=== PATIENT | male | born 1965 | race Caucasian/White ===

== ENCOUNTER → 2017-03-30 | Outpatient (CLI) | payer BC ==
[~2017-03-30] MED LIST: GLC500 PO; HMLI SC; LISI5TAB3 PO; SIMV10TA2 PO
--- NOTE | 2017-03-30 20:04 | DIAGNOSTIC IMAGING REPORT ---
ULTRASOUND RIGHT LOWER EXTREMITY VENOUS CLINICAL HISTORY: Right leg swelling. COMPARISON STUDY: No priors. TECHNIQUE: Real-time, grayscale, and color Doppler sonography of the deep veins of the right lower extremity was performed from the inguinal crease to the calf. Compression and augmentation were utilized. FINDINGS: There is no sonographic evidence of deep venous thrombosis identified in the right lower extremity. The common femoral, superficial femoral, and popliteal veins are patent and normally compressible. The greater saphenous vein and the profunda femoris vein at the junction with the common femoral vein are clear. The visualized calf veins are patent. Superficial venous thrombus is identified in the posterior calf. IMPRESSION: 1. There is no sonographic evidence of deep venous thrombosis identified in the right lower extremity. 2. A thrombosed superficial vein is identified in the posterior calf. Electronically signed by: Hunter Nix M.D. 03/30/2017 8:03 PM Dictated Date/Time: 03/30/2017 8:02 PM
== END | disposition home or self-care (01) ==
LOC: C.ULTR 19:08
PROVIDERS: ATTEND Family Medicine
DX: M79.89 Other specified soft tissue disorders (principal); I82.811 Embolism and thrombosis of superficial veins of right lower extremity

== ENCOUNTER → 2017-12-12 | Outpatient (CLI) | payer OTHER ==
[~2017-12-12] MED LIST changes: +ACET-1256 PO; +AMIT10TA6 PO; +ASPI81TA28 PO; +ATOR-24 PO; +DULA1INJ SQ; +DXY100 PO; +FRRS300 PO; +IBUP-103 PO; +INSDGIPEN SQ; +LEVO50TA6 PO; +LISI10TA PO; +MECL1TAB40 PO; +METF-384 PO; +SILV1CRE73 TOP; +SULF800T23 PO; +VALA1TAB31 PO
--- NOTE | 2017-12-12 18:31 | DIAGNOSTIC IMAGING REPORT ---
ULTRASOUND RIGHT LOWER EXTREMITY VENOUS CLINICAL HISTORY: Right leg swelling. COMPARISON STUDY: Right lower extremity venous ultrasound dated 03/30/2017. TECHNIQUE: Real-time, grayscale, and color Doppler sonography of the deep veins of the right lower extremity was performed from the inguinal crease to the calf. Compression and augmentation were utilized. FINDINGS: There is no sonographic evidence of deep venous thrombosis identified in the right lower extremity. The common femoral, superficial femoral, and popliteal veins are patent and normally compressible. The greater saphenous vein and the profunda femoris vein at the junction with the common femoral vein are clear. The visualized calf veins are patent. Chronic appearing superficial venous thrombus is identified within the lesser saphenous vein in the popliteal fossa. IMPRESSION: 1. There is no sonographic evidence of deep venous thrombosis identified in the right lower extremity. 2. Chronic appearing superficial venous thrombus is identified within the lesser saphenous vein in the popliteal fossa. Electronically signed by: Hunter Nix M.D. 12/12/2017 6:30 PM Dictated Date/Time: 12/12/2017 6:29 PM
== END | disposition home or self-care (01) ==
LOC: C.ULTR 17:32
PROVIDERS: ATTEND Physician Assistant
DX: I82.811 Embolism and thrombosis of superficial veins of right lower extremity (principal)

== ENCOUNTER 2017-12-15 15:31 | Inpatient (IN) | payer OTHER ==
[~2017-12-15] VITALS: Ht 172.7 cm; Wt 88.9 kg
[~2017-12-15 15:31] MED LIST changes: -ACET-1256 PO; -AMIT10TA6 PO; -ASPI81TA28 PO; -ATOR-24 PO; -DULA1INJ SQ; -DXY100 PO; -FRRS300 PO; -IBUP-103 PO; -INSDGIPEN SQ; -LEVO50TA6 PO; -LISI10TA PO; -MECL1TAB40 PO; -METF-384 PO; -SILV1CRE73 TOP; -SULF800T23 PO; -VALA1TAB31 PO
[2017-12-15] MEDS ORDERED: PIPERACILLIN/TAZOBACTAM 4.5 GM/100ML D5W IV STA (15:53)
[2017-12-15] MEDS ORDERED: VANCOMYCIN IV 2,250 MG in SODIUM CHLORIDE 0.9% 500ML 500 ML IV STA (15:53)
[2017-12-15] MEDS ORDERED: VANCOMYCIN CONSULT ACTIVE PRN ×2 (16:00→19:55)
[2017-12-15 16:25] LABS: BASO % 0.2 %; BASO ABS # 0.03 K/uL (0-0.2); EOS % 0.6 %; EOS ABS # 0.11 K/uL (0-0.5); HEMATOCRIT 29.6 % (42-52); HEMOGLOBIN 10.3 g/dL (14.0-18.0); IG# 0.06 K/uL (0.00-0.02); LYMPH % 8.4 %; MEAN CORPUSCULAR HEMOGLOBIN 32.7 pg (25-34); MEAN CORPUSCULAR HGB CONC 34.8 g/dl (32-36); MEAN PLATELET VOLUME 8.5 fL (7.4-10.4); MONO % 8.2 %; MONO ABS # 1.46 K/uL (0.11-0.59); NEUT % 82.3 %; NEUT ABS # 14.74 K/uL (1.4-6.5); PLATELET COUNT 388 K/uL (130-400); RED CELL DISTRIBUTION WIDTH CV 11.8 % (11.5-14.5); RED CELL DISTRIBUTION WIDTH SD 40.1 fL (36.4-46.3)
[2017-12-15] MEDS ORDERED: SULF800T23 PO (16:35)
[2017-12-15] MEDS ORDERED: LEVO50TA6 PO (16:35)
[2017-12-15] MEDS ORDERED: METF-384 PO (16:35)
[2017-12-15] MEDS ORDERED: DULA1INJ SQ (16:35)
[2017-12-15] MEDS ORDERED: INSDGIPEN SQ (16:37)
[2017-12-15] MEDS ORDERED: LISI10TA PO (16:43)
[2017-12-15] MEDS ORDERED: MECL1TAB40 PO (16:43)
[2017-12-15] MEDS ORDERED: IBUP-103 PO (16:43)
[2017-12-15] MEDS ORDERED: ASPI81TA28 PO (16:43)
[2017-12-15] MEDS ORDERED: ATOR-24 PO (16:43)
[2017-12-15] MEDS ORDERED: ACET-1256 PO (16:43)
[2017-12-15] MEDS ORDERED: SILV1CRE73 TOP (16:43)
[2017-12-15] MEDS ORDERED: AMIT10TA6 PO (16:43)
[2017-12-15] MEDS ORDERED: VALA1TAB31 PO (16:43)
[2017-12-15 16:48] LABS: ALBUMIN 3.2 gm/dl (3.4-5.0); CALCIUM 8.9 mg/dl (8.5-10.1); CREATININE 0.86 mg/dl (0.60-1.40); POTASSIUM 3.7 mmol/L (3.5-5.1)
--- NOTE | 2017-12-15 16:50 | DIAGNOSTIC IMAGING REPORT ---
R TIBIA/FIBULA 2 VIEWS ROUTINE CLINICAL HISTORY: eval cellulitis, osteo pain. Infection. COMPARISON: None. DISCUSSION: The bones and joint spaces appear intact. There is no evidence of fracture, dislocation or bony disease. Minimal soft tissue edema IMPRESSION: No acute bony abnormality. Mild/minimal soft tissue edema. The above report was generated using voice recognition software. It may contain grammatical, syntax or spelling errors. Electronically signed by: Bereket Smith M.D. 12/15/2017 4:49 PM Dictated Date/Time: 12/15/2017 4:48 PM
--- NOTE | 2017-12-15 16:51 | DIAGNOSTIC IMAGING REPORT ---
R FOOT MIN 3 VIEWS ROUTINE CLINICAL HISTORY: eval cellulitis, osteo, fluctuance on mid sole of foot pain. Infection. COMPARISON: None. DISCUSSION: The bones and joint spaces appear intact. There is no evidence of fracture, dislocation or bony disease. Mild soft tissue edema IMPRESSION: Mild soft tissue edema. No acute bony abnormality. The above report was generated using voice recognition software. It may contain grammatical, syntax or spelling errors. Electronically signed by: Bereket Smith M.D. 12/15/2017 4:50 PM Dictated Date/Time: 12/15/2017 4:49 PM
[2017-12-15 16:56] LABS: TOTAL PROTEIN 8.5 gm/dl (6.4-8.2)
--- NOTE | 2017-12-15 18:02 | EMERGENCY ROOM VISIT NOTE ---
ED Visit Note First contact with patient: 15:40 CHIEF COMPLAINT: Right leg pain and swelling HISTORY OF PRESENTING ILLNESS: This is a 52-year-old male with past medical history significant for insulin-dependent diabetes, hypertension and hyperlipidemia, who presents to the emergency department with complaint of right leg pain and swelling for the past 10 days. Patient states that his symptoms started as an ache in the leg and got progressively worse. This past Sunday he was seen in the emergency department, had an ultrasound done which showed no signs of DVT. Patient followed up with his primary care provider and was treated for suspected cellulitis, he received 1 g of Rocephin IM on and Sunday and was also placed on Bactrim which he has been taking. Patient states that he saw his PCP for follow-up again today, they were concerned that he was getting progressively worse and sent him to the emergency department for further evaluation. Patient states that he has bad neuropathy in both legs due to his diabetes, but does have increasing pain in the bottom of his foot and has noticed a blister there. He denies any open wounds of the foot or leg. He does have some scratches on the lateral calf that he states are from scraping the leg against a box. His tetanus is up-to-date. He has had associated chills and fevers at home, he has been taking ibuprofen and Tylenol for his fevers and pain, his last dose of ibuprofen was 10 AM today. He has also had a decreased appetite for the past few days and has been not feeling well. He denies any symptoms of headache, neck pain, chest pain, shortness of breath, back pain, abdominal pain, nausea or vomiting, diarrhea, urinary symptoms, or rash. He reports that his blood sugars have been well controlled recently, in the 160s-170s. REVIEW OF SYSTEMS: A complete 10 point review of systems was reviewed with the patient with pertinent positives and negatives as per history of present illness. All else were negative. PAST MEDICAL HISTORY: Reviewed in chart SOCIAL HISTORY: Lives at home. Denies tobacco use, alcohol or recreational drug use. ALLERGIES: No known allergies per PHYSICAL EXAM: CONSTITUTIONAL: Pleasant and cooperative. No acute distress, but does appear uncomfortable. Mildly dehydrated, but otherwise well appearing and well nourished. HEENT: Normocephalic, atraumatic. Pupils equal, round and reactive to light, EOMI. TMs normal. Pharynx normal. Tacky mucous membranes. NECK: Supple, full active range of motion without discomfort. No cervical adenopathy. RESPIRATORY: Clear to auscultation bilaterally with no wheezing, crackles, rhonchi or stridor. Equal expansion bilaterally. CARDIOVASCULAR: Regular rate and rhythm with no murmurs, rubs or gallops. Normal peripheral perfusion. Pitting edema of the right lower extremity. GASTROINTESTINAL: Soft, nontender, nondistended. No palpable masses or HSM. Bowel sounds present in all quadrants. MUSCULOSKELETAL: The right foot is diffusely cellulitic with erythema, pitting edema, and warmth to touch, tender to palpation. The erythema and swelling extends up the right calf and is nearly circumferential, with 2+ pitting edema. There is an area of fluctuance on the mid sole of the right foot that is very tender to palpation, concerning for possible abscess. Full range of motion of the right ankle and knee joint without any increase in pain. Compartments soft. There are superficial linear scratches noted to the right lateral calf with scabbing over them, no drainage from the wounds, not significantly tender to palpation. INTEGUMENTARY: No rash or other significant dermatologic conditions noted. NEUROLOGIC: Alert and oriented X 4 with normal affect. Cranial nerves II-XII grossly intact. No focal neurologic deficits noted. Normal strength and sensation in all 4 extremities. Normal speech. Antalgic gait. ED COURSE AND MEDICAL DECISION MAKING: CC: Patient presenting with complaint of pain and swelling of the right lower extremity DIFFERENTIAL DIAGNOSIS: Includes, but not limited to cellulitis, abscess, osteomyelitis, sepsis/bacteremia, DVT, necrotizing fasciitis, among others. INTERPRETATION OF LABS: Markedly leukocytosis with left shift, anemia, no significant electrolyte abnormalities, normal renal function, normal liver enzymes. Market elevation of the inflammatory markers. Coagulation factors within normal limits. IMAGING: R FOOT MIN 3 VIEWS ROUTINE CLINICAL HISTORY: eval cellulitis, osteo, fluctuance on mid sole of foot pain. Infection. COMPARISON: None. DISCUSSION: The bones and joint spaces appear intact. There is no evidence of fracture, dislocation or bony disease. Mild soft tissue edema IMPRESSION: Mild soft tissue edema. No acute bony abnormality. ----- R TIBIA/FIBULA 2 VIEWS ROUTINE CLINICAL HISTORY: eval cellulitis, osteo pain. Infection. COMPARISON: None. DISCUSSION: The bones and joint spaces appear intact. There is no evidence of fracture, dislocation or bony disease. Minimal soft tissue edema IMPRESSION: No acute bony abnormality. Mild/minimal soft tissue edema. MEDICATION RECONCILIATION: I attest that I have personally reviewed the patient 's current medication list. INITIAL VITAL SIGNS REVIEW: I reviewed the patient's initial vital signs and interpret them as follows: T: Afebrile; BP: Normotensive; HR: Tachycardic; RR : Within normal limits; Pulse Ox: Within normal limits on room air. Blood pressure screening: The patient was found to have normal blood pressure on screening and does not require follow-up for repeat blood pressure check. SUMMARY: Patient was evaluated at bedside, history and physical exam performed. Patient is alert and oriented, no acute distress but does appear to be uncomfortable, resting in the stretcher. The right lower extremity is erythematous, edematous, warm to touch and tender to palpation. This extends from the entire foot and including most of the calf as well. There is an area of fluctuance on the sole of the mid foot concerning for possible abscess formation. Pain is not out of proportion to exam, there is no significant increase in pain with passive flexion or extension of the foot, and calf compartments are soft. The patient has already received Rocephin and Bactrim for 3 days with continued worsening progression, concerning for failed outpatient treatment. Orders were placed at bedside for labs, UA, blood cultures 2, IV fluid bolus for hydration, IV vancomycin and Zosyn for broad coverage of diabetic foot cellulitis, x-ray of the foot and tibia/fibula to evaluate for cellulitis and osteomyelitis. Patient discussed with Dr. Magdaleno, who agrees with my assessment and plan. Labs and imaging reviewed as above, marked leukocytosis and elevated inflammatory markers. No evidence of osteomyelitis or soft tissue gas on plain film imaging. Given the patient's failure of outpatient treatment and progressive worsening symptoms, and the fact that patient is an insulin-dependent diabetic, I do believe that he requires inpatient admission for IV antibiotics and close monitoring. I would also have a low threshold for performing MRI of the extremity to fully rule out osteomyelitis of the foot. I did speak with Dr. Becerra, hospitalist, who agrees to evaluate the patient for admission. Patient reassessed multiple times throughout ED stay, he remained stable, and appears comfortable. Patient was updated on all results and plan for admission, he verbalized understanding was agreeable to this plan. The patient was stable at time of admission. 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 (2) Diabetic neuropathy Status: Chronic (3) DMII (diabetes mellitus, type 2) Status: Chronic (4) HTN (hypertension) Status: Chronic (5) Hypothyroidism Status: Chronic (6) Microalbuminuria Status: Chronic Current/Historical Medications Scheduled Amitriptyline Hcl (Elavil), 10 MG PO HS Aspirin (Aspirin Ec), 81 MG PO DAILY Atorvastatin (Lipitor), 40 MG PO DAILY Dulaglutide (Trulicity), 0.75 MG SQ WK Insulin Glargine (Lantus Solostar), 50 UNITS SQ QPM Levothyroxine Sodium (Levothyroxine Sodium), 1 TAB PO DAILY Lisinopril (Prinivil), 10 MG PO DAILY Metformin Hcl (Glucophage), 1,000 MG PO BID Sulfa/Trimethoprim (Bactrim Ds 800MG/160MG), 1 TAB PO BID Scheduled PRN Acetaminophen (Tylenol), 1,000 MG PO Q6 PRN for Pain Ibuprofen Tab (Advil), 400 MG PO Q4 PRN for Pain Meclizine Hcl (Meclizine Hcl), 12.5 MG PO TID PRN for Dizziness or Vertigo Silver Sulfadiazine (Silvadene), 1 APPLN TOP BID PRN for Valacyclovir Hcl (Valtrex), 1 GM PO BID PRN for BREAKOUTS Allergies Coded Allergies: No Known Allergies (Unverified , 09/11/13) Vital Signs Date Time Temp Pulse Resp B/P (MAP) Pulse Ox O2 Delivery O2 Flow Rate FiO2 12/15/17 17:24 82 18 134/76 98 Room Air 12/15/17 16:28 98 Room Air 12/15/17 16:22 115 12/15/17 15:38 36.9 80 18 129/80 96 Room Air Laboratory Results 12/15/17 16:07 Red Blood Count 3.15, Mean Corpuscular Volume 94.0, Mean Corpuscular Hemoglobin 32.7, Mean Corpuscular Hemoglobin Concent 34.8, Mean Platelet Volume 8.5, Neutrophils (%) (Auto) 82.3, Lymphocytes (%) (Auto) 8.4, Monocytes (%) (Auto) 8.2, Eosinophils (%) (Auto) 0.6, Basophils (%) (Auto) 0.2, Neutrophils # (Auto) 14.74, Lymphocytes # (Auto) 1.50, Monocytes # (Auto) 1.46, Eosinophils # (Auto) 0.11, Basophils # (Auto) 0.03 12/15/17 16:07 Test 12/15/17 16:07 White Blood Count 17.90 K/uL (4.8-10.8) Red Blood Count 3.15 M/uL (4.7-6.1) Hemoglobin 10.3 g/dL (14.0-18.0) Hematocrit 29.6 % (42-52) Mean Corpuscular Volume 94.0 fL (80-100) Mean Corpuscular Hemoglobin 32.7 pg (25-34) Mean Corpuscular Hemoglobin Concent 34.8 g/dl (32-36) Platelet Count 388 K/uL (130-400) Mean Platelet Volume 8.5 fL (7.4-10.4) Neutrophils (%) (Auto) 82.3 % Lymphocytes (%) (Auto) 8.4 % Monocytes (%) (Auto) 8.2 % Eosinophils (%) (Auto) 0.6 % Basophils (%) (Auto) 0.2 % Neutrophils # (Auto) 14.74 K/uL (1.4-6.5) Lymphocytes # (Auto) 1.50 K/uL (1.2-3.4) Monocytes # (Auto) 1.46 K/uL (0.11-0.59) Eosinophils # (Auto) 0.11 K/uL (0-0.5) Basophils # (Auto) 0.03 K/uL (0-0.2) RDW Standard Deviation 40.1 fL (36.4-46.3) RDW Coefficient of Variation 11.8 % (11.5-14.5) Immature Granulocyte % (Auto) 0.3 % Immature Granulocyte # (Auto) 0.06 K/uL (0.00-0.02) Erythrocyte Sedimentation Rate 77 mm/hr (0-14) Prothrombin Time 10.6 SECONDS (9.0-12.0) Prothromb Time International Ratio 1.0 (0.9-1.1) Activated Partial Thromboplast Time 31.0 SECONDS (21.0-31.0) Partial Thromboplastin Ratio 1.2 Anion Gap 9.0 mmol/L (3-11) Est Creatinine Clear Calc Drug Dose 109.6 ml/min Estimated GFR () 115.6 Estimated GFR (Non- 99.7 BUN/Creatinine Ratio 16.8 (10-20) Lactic Acid Level 1.8 mmol/L (0.4-2.0) Calcium Level 8.9 mg/dl (8.5-10.1) Total Bilirubin 0.9 mg/dl (0.2-1) Direct Bilirubin 0.2 mg/dl (0-0.2) Aspartate Amino Transf (AST/SGOT) 45 U/L (15-37) Alanine Aminotransferase (ALT/SGPT) 44 U/L (12-78) Alkaline Phosphatase 100 U/L (45-117) C-Reactive Protein 24.60 mg/dl (0-0.29) Total Protein 8.5 gm/dl (6.4-8.2) Albumin 3.2 gm/dl (3.4-5.0) Medications Administered Medications (Trade) Dose Ordered Sig/Minal Route Start Time Stop Time Status Last Admin Dose Admin Vancomycin HCl 2250 mg/Sodium Chloride 545 ml @ 200 mls/hr ONE STAT IV 12/15/17 15:53 12/15/17 18:36 DC 12/15/17 15:53 200 MLS/HR Piperacillin Sod/ Tazobactam Sod (Zosyn Iv) 4.5 gm NOW STAT IV 12/15/17 15:53 12/15/17 16:01 DC 12/15/17 15:53 4.5 GM Departure Information Impression Primary Impression: Cellulitis of right leg Additional Impression: Cellulitis of foot, right Dispostion Admitted as an inpatient Condition FAIR Referrals India Wan D.O. (PCP) Patient Instructions My [facility] Problem Qualifiers
[2017-12-15 18:14] VITALS: BP 138/81; PULSE 103; TEMP 38.1; O2SAT 95
[2017-12-15] MEDS ORDERED: GLUCAGON FOR INJ 1 MG VIAL SQ PRN (18:15)
[2017-12-15] MEDS ORDERED: GLUCOSE 40% GEL 15 GM TUBE PO PRN (18:15)
[2017-12-15] MEDS ORDERED: POLYETHYLENE (MIRALAX) 17 GM PACK PO PRN (18:15)
[2017-12-15] MEDS ORDERED: DEXTROSE 50% 50 ML SYR IV PRN (18:15)
[2017-12-15] MEDS ORDERED: GLUCOSE 10 TABS/TUBE PO PRN (18:15)
[2017-12-15 18:25] VITALS: BP 138/81; PULSE 103; TEMP 38.1; O2SAT 95; Ht 172.7 cm; Wt 88.9 kg
--- NOTE | 2017-12-15 18:26 | History and Physical ---
History & Physical Date & Time of Service: Dec 15, 2017 at 18:16 Chief Complaint: Swollen Leg/Foot Infection-Ref By Primary Care Physician: India Wan D.O. History of Present Illness Source: patient, spouse, clinic records, hospital records The patient is a 52-year-old diabetic male who presents with 1-1/2 weeks of swelling in his right lower extremity. Over the past 4-5 days he has noticed a worsening of pain and warmth in his right lower extremity in addition to the formation of a blister on the plantar side of his foot. He had been worked up for gout and DVT was ruled out initially as outpatient, however, he began looking like a cellulitis picture and was started on ceftriaxone injections in the clinic for 2 days as well as Bactrim as outpatient. He presented with fevers and chills for the last 24 hours and a worsening in his clinical status despite antibiotic therapy. Review of systems reveals discomfort in his right lower extremity shaking chills, fevers, decreased appetite. The patient denies any chest pain, shortness of breath, headache, cough, abdominal pain, urinary symptoms, or other issues at this time. He reports not changing shoes recently. He did get a scratch from moving furniture approximately 5 days ago. The scratches on his lateral right calf and is well healed over with no surrounding erythema or any drainage. 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 (2) Diabetic neuropathy Status: Chronic (3) DMII (diabetes mellitus, type 2) Status: Chronic (4) HTN (hypertension) Status: Chronic (5) Hypothyroidism Status: Chronic (6) Microalbuminuria Status: Chronic Family History FH: HTN (hypertension) MOTHER FH: premature coronary heart disease FATHER (58) MOTHER BROTHER (42) FH: type 2 diabetes mellitus BROTHER Social History Smoking Status: Never Smoker Smokeless Tobacco Use: No Alcohol Use: socially Drug Use: none Marital Status: Housing status: lives with significant other Immunizations History of Influenza Vaccine: Yes Influenza Vaccine Date: Sep 28, 2017 History of Tetanus Vaccine?: Yes Tetanus Immunization Date: Nov 16, 2008 History of Pneumococcal: Yes Pneumococcal Date: Nov 16, 2008 History of Hepatitis B Vaccine: No Allergies Coded Allergies: No Known Allergies (Unverified , 09/11/13) Home Medications Scheduled Amitriptyline Hcl (Elavil), 10 MG PO HS Aspirin (Aspirin Ec), 81 MG PO DAILY Atorvastatin (Lipitor), 40 MG PO DAILY Dulaglutide (Trulicity), 0.75 MG SQ WK Insulin Glargine (Lantus Solostar), 50 UNITS SQ QPM Levothyroxine Sodium (Levothyroxine Sodium), 1 TAB PO DAILY Lisinopril (Prinivil), 10 MG PO DAILY Metformin Hcl (Glucophage), 1,000 MG PO BID Sulfa/Trimethoprim (Bactrim Ds 800MG/160MG), 1 TAB PO BID Scheduled PRN Acetaminophen (Tylenol), 1,000 MG PO Q6 PRN for Pain Ibuprofen Tab (Advil), 400 MG PO Q4 PRN for Pain Meclizine Hcl (Meclizine Hcl), 12.5 MG PO TID PRN for Dizziness or Vertigo Silver Sulfadiazine (Silvadene), 1 APPLN TOP BID PRN for Valacyclovir Hcl (Valtrex), 1 GM PO BID PRN for BREAKOUTS Review of Systems Constitutional: + fever, + chills ENT: No problem reported Respiratory: No cough, No shortness of breath Cardiovascular: No chest pain, No edema Abdomen: No pain, No nausea, No vomiting, No diarrhea Musculoskeletal: + problem reported (RLE swelling x 1 week with progressive pain, redness and blister on sole of foot) Genitourinary - Male: No problem reported Neurologic: + numbness/tingling (chronic numbness in bilat LE 2/2 neuropathy) Psychiatric: No problem reported Hematologic / Lymphatic: No problem reported Integumentary: + new/changing skin lesions (as above) Allergic / Immunologic: No problem reported Physical Exam Vital Signs Date Time Temp Pulse Resp B/P (MAP) Pulse Ox O2 Delivery O2 Flow Rate FiO2 12/15/17 16:28 98 Room Air 12/15/17 16:22 115 12/15/17 15:38 36.9 80 18 129/80 96 Room Air General Appearance: WD/WN, no apparent distress Head: normocephalic, atraumatic Eyes: normal inspection, sclerae normal ENT: hearing grossly normal Neck: trachea midline Respiratory/Chest: lungs clear, normal breath sounds, no respiratory distress, no accessory muscle use Cardiovascular: no edema, no gallop, no JVD, no murmur, normal peripheral pulses, + tachycardia Abdomen/GI: normal bowel sounds, non tender, soft, no organomegaly Back: normal inspection Extremities/Musculoskelatal: + pertinent finding (RLE erythema in patches with increased warmth and area of fluctuance on plantar side of foot surrounding by erythema. Scratch on lat right lower leg-closed, well-healing.) Diagnostics Laboratory Results 12/15/17 16:07 Red Blood Count 3.15, Mean Corpuscular Volume 94.0, Mean Corpuscular Hemoglobin 32.7, Mean Corpuscular Hemoglobin Concent 34.8, Mean Platelet Volume 8.5, Neutrophils (%) (Auto) 82.3, Lymphocytes (%) (Auto) 8.4, Monocytes (%) (Auto) 8.2, Eosinophils (%) (Auto) 0.6, Basophils (%) (Auto) 0.2, Neutrophils # (Auto) 14.74, Lymphocytes # (Auto) 1.50, Monocytes # (Auto) 1.46, Eosinophils # (Auto) 0.11, Basophils # (Auto) 0.03 12/15/17 16:07 Test 12/15/17 16:07 White Blood Count 17.90 K/uL (4.8-10.8) Red Blood Count 3.15 M/uL (4.7-6.1) Hemoglobin 10.3 g/dL (14.0-18.0) Hematocrit 29.6 % (42-52) Mean Corpuscular Volume 94.0 fL (80-100) Mean Corpuscular Hemoglobin 32.7 pg (25-34) Mean Corpuscular Hemoglobin Concent 34.8 g/dl (32-36) Platelet Count 388 K/uL (130-400) Mean Platelet Volume 8.5 fL (7.4-10.4) Neutrophils (%) (Auto) 82.3 % Lymphocytes (%) (Auto) 8.4 % Monocytes (%) (Auto) 8.2 % Eosinophils (%) (Auto) 0.6 % Basophils (%) (Auto) 0.2 % Neutrophils # (Auto) 14.74 K/uL (1.4-6.5) Lymphocytes # (Auto) 1.50 K/uL (1.2-3.4) Monocytes # (Auto) 1.46 K/uL (0.11-0.59) Eosinophils # (Auto) 0.11 K/uL (0-0.5) Basophils # (Auto) 0.03 K/uL (0-0.2) RDW Standard Deviation 40.1 fL (36.4-46.3) RDW Coefficient of Variation 11.8 % (11.5-14.5) Immature Granulocyte % (Auto) 0.3 % Immature Granulocyte # (Auto) 0.06 K/uL (0.00-0.02) Erythrocyte Sedimentation Rate 77 mm/hr (0-14) Prothrombin Time 10.6 SECONDS (9.0-12.0) Prothromb Time International Ratio 1.0 (0.9-1.1) Activated Partial Thromboplast Time 31.0 SECONDS (21.0-31.0) Partial Thromboplastin Ratio 1.2 Anion Gap 9.0 mmol/L (3-11) Est Creatinine Clear Calc Drug Dose 109.6 ml/min Estimated GFR () 115.6 Estimated GFR (Non- 99.7 BUN/Creatinine Ratio 16.8 (10-20) Lactic Acid Level 1.8 mmol/L (0.4-2.0) Calcium Level 8.9 mg/dl (8.5-10.1) Total Bilirubin 0.9 mg/dl (0.2-1) Direct Bilirubin 0.2 mg/dl (0-0.2) Aspartate Amino Transf (AST/SGOT) 45 U/L (15-37) Alanine Aminotransferase (ALT/SGPT) 44 U/L (12-78) Alkaline Phosphatase 100 U/L (45-117) C-Reactive Protein 24.60 mg/dl (0-0.29) Total Protein 8.5 gm/dl (6.4-8.2) Albumin 3.2 gm/dl (3.4-5.0) Date/Time Source Procedure Growth Status 12/15/17 16:09 Blood Blood Culture Pending Received Results Past 24 Hours Test 12/15/17 16:07 Range/Units White Blood Count 17.90 4.8-10.8 K/uL Red Blood Count 3.15 4.7-6.1 M/uL Hemoglobin 10.3 14.0-18.0 g/dL Hematocrit 29.6 42-52 % Mean Corpuscular Volume 94.0 80-100 fL Mean Corpuscular Hemoglobin 32.7 25-34 pg Mean Corpuscular Hemoglobin Concent 34.8 32-36 g/dl Platelet Count 388 130-400 K/uL Mean Platelet Volume 8.5 7.4-10.4 fL Neutrophils (%) (Auto) 82.3 % Lymphocytes (%) (Auto) 8.4 % Monocytes (%) (Auto) 8.2 % Eosinophils (%) (Auto) 0.6 % Basophils (%) (Auto) 0.2 % Neutrophils # (Auto) 14.74 1.4-6.5 K/uL Lymphocytes # (Auto) 1.50 1.2-3.4 K/uL Monocytes # (Auto) 1.46 0.11-0.59 K/uL Eosinophils # (Auto) 0.11 0-0.5 K/uL Basophils # (Auto) 0.03 0-0.2 K/uL RDW Standard Deviation 40.1 36.4-46.3 fL RDW Coefficient of Variation 11.8 11.5-14.5 % Immature Granulocyte % (Auto) 0.3 % Immature Granulocyte # (Auto) 0.06 0.00-0.02 K/uL Erythrocyte Sedimentation Rate 77 0-14 mm/hr Prothrombin Time 10.6 9.0-12.0 SECONDS Prothromb Time International Ratio 1.0 0.9-1.1 Activated Partial Thromboplast Time 31.0 21.0-31.0 SECONDS Partial Thromboplastin Ratio 1.2 Sodium Level 134 136-145 mmol/L Potassium Level 3.7 3.5-5.1 mmol/L Chloride Level 99 98-107 mmol/L Carbon Dioxide Level 26 21-32 mmol/L Anion Gap 9.0 3-11 mmol/L Blood Urea Nitrogen 14 7-18 mg/dl Creatinine 0.86 0.60-1.40 mg/dl Est Creatinine Clear Calc Drug Dose 109.6 ml/min Estimated GFR () 115.6 Estimated GFR (Non- 99.7 BUN/Creatinine Ratio 16.8 10-20 Random Glucose 148 70-99 mg/dl Lactic Acid Level 1.8 0.4-2.0 mmol/L Calcium Level 8.9 8.5-10.1 mg/dl Total Bilirubin 0.9 0.2-1 mg/dl Direct Bilirubin 0.2 0-0.2 mg/dl Aspartate Amino Transf (AST/SGOT) 45 15-37 U/L Alanine Aminotransferase (ALT/SGPT) 44 12-78 U/L Alkaline Phosphatase 100 45-117 U/L C-Reactive Protein 24.60 0-0.29 mg/dl Total Protein 8.5 6.4-8.2 gm/dl Albumin 3.2 3.4-5.0 gm/dl Microbiology Results 12/15/17 Blood Culture, Received Pending 12/15/17 Blood Culture, Received Pending Diagnostic Radiology R TIBIA/FIBULA 2 VIEWS ROUTINE CLINICAL HISTORY: eval cellulitis, osteo pain. Infection. COMPARISON: None. DISCUSSION: The bones and joint spaces appear intact. There is no evidence of fracture, dislocation or bony disease. Minimal soft tissue edema IMPRESSION: No acute bony abnormality. Mild/minimal soft tissue edema. R FOOT MIN 3 VIEWS ROUTINE CLINICAL HISTORY: eval cellulitis, osteo, fluctuance on mid sole of foot pain. Infection. COMPARISON: None. DISCUSSION: The bones and joint spaces appear intact. There is no evidence of fracture, dislocation or bony disease. Mild soft tissue edema IMPRESSION: Mild soft tissue edema. No acute bony abnormality. EKG ST Impression Assessment and Plan 52-year-old diabetic male with sepsis secondary to right lower extremity cellulitis and newly formed blister on plantar side of foot. 1. Sepsis secondary to right lower extremity cellulitis with possibility of new plantar abscess-failed outpatient therapy with ceftriaxone and Bactrim. Resuscitation with IV fluids in the ER, lactate is normal, empiric broad- spectrum antibiotics were begun. We will continue that overnight. General surgery consulted for source control with possible abscess. MRI was ordered to rule out osteomyelitis and evaluate further the extent of this area of fluctuance. N.p.o. after midnight for possible OR for I&D drainage of the foot tomorrow. 2. Diabetes type 2-hold to elicit the metformin while inpatient. Insulin sliding scale with carb coverage and Lantus ordered. A1c reveals controlled diabetes with known complications of neuropathy, proteinuria. 3. Hypothyroidism-continue Synthroid per home dose 4. Diabetic neuropathy-continue Elavil. 5. Hypertension-controlled. Continue lisinopril per home regimen 6. Normocytic Anemia-no reports of recent bleeding, no indication for transfusion at this point. Uncertain of recent baseline as no labs for comparison are available. Pursue workup as outpatient. Colonoscopy in 2015 was normal. Will start with iron studies here. Of note, would expect ferritin to be elevated in setting of sepsis/infection. DVT prophylaxis-contraindicated in setting of possible procedure, cannot place SCDs because of infection on leg. Full code Disco-telemetry Monica Becerra DO [facility] hospitalist Resuscitation Status VTE Prophylaxis Will order VTE Prophylaxis: Yes
--- NOTE | 2017-12-15 19:13 | Medical Consult ---
Consultation Date of Consultation: Dec 15, 2017. Attending Physician: Kody Garrett MD Reason for Consultation: Cellulitis of right foot, right foot abscess History of Present Illness Mr. Mckeon is a 52-year-old male with past medical history significant for DM type 2, neuropathy who presented to [facility] ED with complaints of right left pain and swelling for the last 10 days. Patient states that the pain began as a dull ache in his right leg, which continued to radiate down into his foot. He states that the pain continued to become worse- he presented to the ED on Sunday to rule out possible DVT- ultrasound showed no signs of DVT. Patient was discharged to home and followed up with PCP who gave patient 1 dose of Rocephin for suspected cellulitis. Patient returned to PCP today for follow- up. He was then sent to ED after no improvement. Patient reports fevers and chills at home. Reports loss of appetite. He states that his blood sugars have been, on average, in the 160s-170s. Past Medical/Surgical History Medical Problems: (1) Cellulitis of foot, right Status: Acute (2) Cellulitis of right leg Status: Acute Family History FH: HTN (hypertension) MOTHER FH: premature coronary heart disease FATHER (58) MOTHER BROTHER (42) FH: type 2 diabetes mellitus BROTHER Social History Smoking Status: Never Smoker Smokeless Tobacco Use: No Alcohol Use: socially Drug Use: none Marital Status: Allergies Coded Allergies: No Known Allergies (Unverified , 09/11/13) Current Inpatient Medications Current Inpatient Medications Medications (Trade) Dose Ordered Sig/Minal Route Start Time Stop Time Status Last Admin Dose Admin Sodium Chloride 1,000 ml @ 150 mls/hr Q6H40M IV 12/15/17 18:10 03/01/18 07:29 Acetaminophen (Tylenol Tab) 650 mg Q4H PRN PO 12/15/17 18:15 01/14/18 18:14 Ondansetron HCl (Zofran Inj) 4 mg Q6H PRN IV 12/15/17 18:15 01/14/18 18:14 Polyethylene (Miralax Powder Packet) 17 gm DAILY PRN PO 12/15/17 18:15 01/14/18 18:14 Insulin Glargine (Lantus Solostar Pen) 7 units Q12 SC 12/15/17 21:00 01/14/18 20:59 Insulin Aspart (novoLOG ASPART) SLIDING SCALE If C... ACHS SC 12/15/17 21:00 01/14/18 20:59 Glucose (Glucose 40% Gel) 15-30 GRAMS 15 GRAMS... UD PRN PO 12/15/17 18:15 01/14/18 18:14 Glucose (Glucose Chew Tab) 4-8 Tablets 4 Tabl... UD PRN PO 12/15/17 18:15 01/14/18 18:14 Dextrose (Dextrose 50% 50ML Syringe) 25-50ML OF 50% DW IV FOR... UD PRN IV 12/15/17 18:15 01/14/18 18:14 Glucagon (Glucagon Inj) 1 mg UD PRN SQ 12/15/17 18:15 01/14/18 18:14 Review of Systems Constitutional: + fever, + chills Integumentary: + problem reported (cellulitis of the right lower extremity. ) Physical Exam Date Time Temp Pulse Resp B/P (MAP) Pulse Ox O2 Delivery O2 Flow Rate FiO2 12/15/17 18:25 38.1 103 16 138/81 95 Room Air 12/15/17 18:14 38.1 103 16 138/81 (100) 95 Room Air 12/15/17 17:24 82 18 134/76 98 Room Air 12/15/17 16:28 98 Room Air 12/15/17 16:22 115 12/15/17 15:38 36.9 80 18 129/80 96 Room Air General Appearance: WD/WN, no apparent distress Head: normocephalic, atraumatic Extremities/Musculoskelatal: + inflammation, + swelling, + pertinent finding ( cellulitis of the right lower extremity, patient has area of fluctuance on the bottom of right foot which is tender to palpation. ) Laboratory Results Last 24 Hours Test 12/15/17 16:07 White Blood Count 17.90 K/uL Red Blood Count 3.15 M/uL Hemoglobin 10.3 g/dL Hematocrit 29.6 % Mean Corpuscular Volume 94.0 fL Mean Corpuscular Hemoglobin 32.7 pg Mean Corpuscular Hemoglobin Concent 34.8 g/dl Platelet Count 388 K/uL Mean Platelet Volume 8.5 fL Neutrophils (%) (Auto) 82.3 % Lymphocytes (%) (Auto) 8.4 % Monocytes (%) (Auto) 8.2 % Eosinophils (%) (Auto) 0.6 % Basophils (%) (Auto) 0.2 % Neutrophils # (Auto) 14.74 K/uL Lymphocytes # (Auto) 1.50 K/uL Monocytes # (Auto) 1.46 K/uL Eosinophils # (Auto) 0.11 K/uL Basophils # (Auto) 0.03 K/uL RDW Standard Deviation 40.1 fL RDW Coefficient of Variation 11.8 % Immature Granulocyte % (Auto) 0.3 % Immature Granulocyte # (Auto) 0.06 K/uL Erythrocyte Sedimentation Rate 77 mm/hr Prothrombin Time 10.6 SECONDS Prothromb Time International Ratio 1.0 Activated Partial Thromboplast Time 31.0 SECONDS Partial Thromboplastin Ratio 1.2 Sodium Level 134 mmol/L Potassium Level 3.7 mmol/L Chloride Level 99 mmol/L Carbon Dioxide Level 26 mmol/L Anion Gap 9.0 mmol/L Blood Urea Nitrogen 14 mg/dl Creatinine 0.86 mg/dl Est Creatinine Clear Calc Drug Dose 109.6 ml/min Estimated GFR () 115.6 Estimated GFR (Non- 99.7 BUN/Creatinine Ratio 16.8 Random Glucose 148 mg/dl Lactic Acid Level 1.8 mmol/L Calcium Level 8.9 mg/dl Total Bilirubin 0.9 mg/dl Direct Bilirubin 0.2 mg/dl Aspartate Amino Transf (AST/SGOT) 45 U/L Alanine Aminotransferase (ALT/SGPT) 44 U/L Alkaline Phosphatase 100 U/L C-Reactive Protein 24.60 mg/dl Total Protein 8.5 gm/dl Albumin 3.2 gm/dl Assessment & Plan 52-year-old male, DM, neuropathy, with suspected right foot abscess. Patient discussed with Dr. Saunders. Recommend MRI to rule out osteomyelitis. Will await results of imaging. Possible I and D in OR tomorrow. IV abx, pain medication per hospitalist team. Patient discussed with Dr. Becerra. General Surgery will continue to follow.
[2017-12-15] MEDS: ACETAMINOPHEN 325 MG TAB PO PRN ×2 (19:24→23:15)
[2017-12-15] MEDS ORDERED: PIPERACILL/TAZOBAC CONSULT ACTIVE PRN (20:00)
[2017-12-15] MEDS: INSULIN GLARGINE SOLOSTAR 100 UNITS/ML 3 ML PEN SC SCH (20:05)
[2017-12-15] MEDS: INSULIN ASPART 100 UNITS/ML 3 ML PEN SC SCH (20:05)
[2017-12-15] MEDS: SODIUM CHLORIDE 0.9% 1000ML 1,000 ML IV SCH (20:07)
--- NOTE | 2017-12-15 21:12 | Pharmacy Progress Note ---
Pharmacy Abx Initial Consult Date of Service Dec 15, 2017. Pharmacy Dosing Scope Date of Consult: 12/15/17 Consultation requested by: Dr. Becerra Pharmacy is consulted to initiate Vancomycin IV dosing therapy, order appropriate labs and adjust drug dose/frequency. Subjective The patient is a 52 year old male admitted on Dec 15, 2017 at 17:28. Objective Height (Feet): 5 Height (Inches): 8.00 Weight (Kilograms): 90.200 Vital Signs (Past 12Hrs) Vital Signs Past 12 Hours Date Time Temp Pulse Resp B/P (MAP) Pulse Ox O2 Delivery O2 Flow Rate FiO2 12/15/17 20:00 Room Air 12/15/17 18:25 38.1 103 16 138/81 95 Room Air 12/15/17 18:14 38.1 103 16 138/81 (100) 95 Room Air 12/15/17 17:24 82 18 134/76 98 Room Air 12/15/17 16:28 98 Room Air 12/15/17 16:22 115 12/15/17 15:38 36.9 80 18 129/80 96 Room Air Lab Results (24Hrs) Laboratory Tests (24 Hours) Test 12/15/17 16:07 C-Reactive Protein 24.60 mg/dl (0-0.29) H Erythrocyte Sedimentation Rate 77 mm/hr (0-14) H Lactic Acid Level 1.8 mmol/L (0.4-2.0) White Blood Count 17.90 K/uL (4.8-10.8) H Red Blood Count 3.15 M/uL (4.7-6.1) L Hemoglobin 10.3 g/dL (14.0-18.0) L Hematocrit 29.6 % (42-52) L Mean Corpuscular Volume 94.0 fL (80-100) Mean Corpuscular Hemoglobin 32.7 pg (25-34) Mean Corpuscular Hemoglobin Concent 34.8 g/dl (32-36) Platelet Count 388 K/uL (130-400) Mean Platelet Volume 8.5 fL (7.4-10.4) Neutrophils (%) (Auto) 82.3 % Lymphocytes (%) (Auto) 8.4 % Monocytes (%) (Auto) 8.2 % Eosinophils (%) (Auto) 0.6 % Basophils (%) (Auto) 0.2 % Neutrophils # (Auto) 14.74 K/uL (1.4-6.5) H Lymphocytes # (Auto) 1.50 K/uL (1.2-3.4) Monocytes # (Auto) 1.46 K/uL (0.11-0.59) H Eosinophils # (Auto) 0.11 K/uL (0-0.5) Basophils # (Auto) 0.03 K/uL (0-0.2) Micro Results Date/Time Source Procedure Growth Status 12/15/17 16:09 Blood Blood Culture Pending Received 12/15/17 16:07 Blood Blood Culture Pending Received Assessment & Plan Assessment 52 year old male with Sepsis and RLE cellulitis with possible abscess. Plan Vancomycin for treatment of Sepsis and Cellulitis Vancomycin IV * Loading dose: 2250 mg (25 mg/kg) * Maintenance dose: 1500 mg IV (16.7 mg/kg) every 12 hours * Goal trough level for Sepsis: 15 to 20 mcg/mL * Trough level ordered for 12/17/17 for 1400. Pharmacy will continue to follow and will adjust dose/frequency as necessary. Thank you.
--- NOTE | 2017-12-15 22:18 | DIAGNOSTIC IMAGING REPORT ---
R LOWER EXT NONJOINT COMBO CLINICAL HISTORY: RLE cellulitis, r/o osteo and has fluctuant area on plantar foot pain TECHNIQUE: Multi axial MRI acquisition pre and post gadolinium enhancement COMPARISON STUDY: None FINDINGS: Findings of mild generalized edematous change and or cellulitis involving the subcutaneous fat. A well-defined drainable abscess or collection is not seen. No significant myositis. Minimal edematous change of the central vasculature of the lower leg although a well-defined collection or abscess is not appreciated. A potential trace periostitis distal fibula No significant bone marrow replacing process. IMPRESSION: 1. Generalized cellulitis within the subcutaneous fat. 2. Mild edematous change of the central muscle bundles 3. No evidence for osteomyelitis based on this exam. 4 potential minimal periostitis of the distal fibula. 5. No evidence for drainable abscess or collection. The above report was generated using voice recognition software. It may contain grammatical, syntax or spelling errors. Electronically signed by: Bereket Smith M.D. 12/15/2017 10:16 PM Dictated Date/Time: 12/15/2017 10:13 PM
[2017-12-15] MEDS: AMITRIPTYLINE HCL 10 MG TAB PO SCH (22:21)
[2017-12-15] MEDS: PIPERACILL/TAZOBAC IV 3.375 GM in DEXTROSE 5% 100ML IV SCH (22:21)
--- NOTE | 2017-12-15 22:26 | DIAGNOSTIC IMAGING REPORT ---
R LOWER EXT NONJOINT COMBO CLINICAL HISTORY: RLE swelling pain. Cellulitis. Infection. TECHNIQUE: Multiaxial MRI acquisition pre and post contrast enhancement. COMPARISON STUDY: None FINDINGS: Considerable soft tissue in plantar fascia soft tissue edematous change and/or cellulitis. Mild edematous change and or myositis of the musculature of the mid to anterior foot mL area the region of the second and third phalanges. There is small fluid pocket immediately deep to the open wound on the patient's plantar surface of the foot. This measures no more than 1 cm maximum dimension. A significant drainable abscess or collection is not appreciated. Signal characteristics the osseous structures show no significant bone marrow replacing process. There is postcontrast enhancement of the bulk of the subcutaneous tissues as well as plantar fascial planes and muscular structures. There is no evidence for bone marrow postcontrast enhancement of significance. Again no evidence for drainable abscess or collection. IMPRESSION: 1. Findings consistent with a generalized cellulitis and to a lesser extent myositis involving the right foot. 2. The bulk of the findings are seen circumferentially around the second and third toes as well as plantar muscular and soft tissue structures. 3. Very small complex fluid pocket immediately deep to the superficial ulcer plantar surface of the foot. This measures no more than 1 cm 4. No evidence for osteomyelitis. 5. No evidence for a drainable abscess or collection 6. Potential trace periostitis involving the phalanges of the second third toes The above report was generated using voice recognition software. It may contain grammatical, syntax or spelling errors. Electronically signed by: Bereket Smith M.D. 12/15/2017 10:24 PM Dictated Date/Time: 12/15/2017 10:16 PM
[2017-12-15 23:10] VITALS: BP 130/77; PULSE 97; TEMP 37.8; O2SAT 92
[2017-12-16] VITALS (7 sets, daily range): BP systolic 103–145; BP diastolic 65–86; PULSE 88–96; TEMP 36.7–37.6; O2SAT 90–98
[2017-12-16] MEDS: VANCOMYCIN IV 1,500 MG in SODIUM CHLORIDE 0.9% 500ML 500 ML IV SCH ×2 (01:37→14:17)
[2017-12-16] MEDS: ONDANSETRON INJ 2 MG/ML 2 ML VIAL IV PRN ×2 (01:40→08:04)
[2017-12-16] MEDS: SODIUM CHLORIDE 0.9% 1000ML 1,000 ML IV SCH ×2 (05:04→07:29)
[2017-12-16] MEDS: PIPERACILL/TAZOBAC IV 3.375 GM in DEXTROSE 5% 100ML IV SCH ×3 (05:07→21:46)
[2017-12-16] MEDS: LEVOTHYROXINE 50 MCG TAB PO SCH (05:08)
[2017-12-16] MEDS: INSULIN ASPART 100 UNITS/ML 3 ML PEN SC SCH ×4 (07:00→21:15)
[2017-12-16 07:23] LABS: BASO % 0.2 %; BASO ABS # 0.03 K/uL (0-0.2); EOS ABS # 0.12 K/uL (0-0.5); HEMATOCRIT 25.1 % (42-52); HEMOGLOBIN 8.6 g/dL (14.0-18.0); IG# 0.04 K/uL (0.00-0.02); LYMPH % 11.9 %; LYMPH ABS # 1.49 K/uL (1.2-3.4); MEAN CORPUSCULAR HEMOGLOBIN 32.2 pg (25-34); MEAN CORPUSCULAR HGB CONC 34.3 g/dl (32-36); MEAN PLATELET VOLUME 8.3 fL (7.4-10.4); MONO ABS # 1.12 K/uL (0.11-0.59); NEUT % 77.6 %; NEUT ABS # 9.68 K/uL (1.4-6.5); PLATELET COUNT 340 K/uL (130-400); RED CELL DISTRIBUTION WIDTH SD 40.9 fL (36.4-46.3); WHITE BLOOD COUNT 12.48 K/uL (4.8-10.8)
[2017-12-16 07:42] LABS: CALCIUM 8.4 mg/dl (8.5-10.1); CREATININE 0.82 mg/dl (0.60-1.40); POTASSIUM 3.7 mmol/L (3.5-5.1)
[2017-12-16] MEDS: ACETAMINOPHEN 325 MG TAB PO PRN ×2 (08:04→18:29)
[2017-12-16] MEDS: ATORVASTATIN 40 MG TAB PO SCH (08:05)
[2017-12-16] MEDS: LISINOPRIL 10 MG TAB PO SCH (08:05)
[2017-12-16] MEDS: INSULIN GLARGINE SOLOSTAR 100 UNITS/ML 3 ML PEN SC SCH ×2 (08:36→21:15)
--- NOTE | 2017-12-16 10:34 | Surgery Progress Note ---
Surgery Progress Note Date of Service Dec 16, 2017. Subjective feels his cellulitis has improved since yesterday. no new complaints. Objective Vital Signs: Date Time Temp Pulse Resp B/P (MAP) Pulse Ox O2 Delivery O2 Flow Rate FiO2 12/16/17 08:00 Room Air 12/16/17 07:26 37.1 96 16 137/86 (103) 91 Room Air 12/16/17 04:00 Room Air 12/16/17 03:30 37.6 96 19 145/81 (102) 91 Room Air 12/16/17 00:01 Room Air 12/15/17 23:10 37.8 97 16 130/77 (94) 92 Room Air 12/15/17 20:00 Room Air 12/15/17 18:25 38.1 103 16 138/81 95 Room Air 12/15/17 18:14 38.1 103 16 138/81 (100) 95 Room Air 12/15/17 17:24 82 18 134/76 98 Room Air 12/15/17 16:28 98 Room Air 12/15/17 16:22 115 12/15/17 15:38 36.9 80 18 129/80 96 Room Air General Appearance: no apparent distress Head: normocephalic, atraumatic Neck: supple Respiratory/Chest: no respiratory distress, no accessory muscle use Extremities: + pertinent finding (cellulitis of RLE-- improved from yesterday. +sterile blister on sole of foot. intact. ) Laboratory Results: Results Past 24 Hours Test 12/15/17 16:07 12/15/17 19:31 12/15/17 22:27 12/16/17 06:00 Range/Units White Blood Count 17.90 4.8-10.8 K/uL Red Blood Count 3.15 4.7-6.1 M/uL Hemoglobin 10.3 14.0-18.0 g/dL Hematocrit 29.6 42-52 % Mean Corpuscular Volume 94.0 80-100 fL Mean Corpuscular Hemoglobin 32.7 25-34 pg Mean Corpuscular Hemoglobin Concent 34.8 32-36 g/dl Platelet Count 388 130-400 K/uL Mean Platelet Volume 8.5 7.4-10.4 fL Neutrophils (%) (Auto) 82.3 % Lymphocytes (%) (Auto) 8.4 % Monocytes (%) (Auto) 8.2 % Eosinophils (%) (Auto) 0.6 % Basophils (%) (Auto) 0.2 % Neutrophils # (Auto) 14.74 1.4-6.5 K/uL Lymphocytes # (Auto) 1.50 1.2-3.4 K/uL Monocytes # (Auto) 1.46 0.11-0.59 K/uL Eosinophils # (Auto) 0.11 0-0.5 K/uL Basophils # (Auto) 0.03 0-0.2 K/uL RDW Standard Deviation 40.1 36.4-46.3 fL RDW Coefficient of Variation 11.8 11.5-14.5 % Immature Granulocyte % (Auto) 0.3 % Immature Granulocyte # (Auto) 0.06 0.00-0.02 K/uL Erythrocyte Sedimentation Rate 77 0-14 mm/hr Prothrombin Time 10.6 9.0-12.0 SECONDS Prothromb Time International Ratio 1.0 0.9-1.1 Activated Partial Thromboplast Time 31.0 21.0-31.0 SECONDS Partial Thromboplastin Ratio 1.2 Sodium Level 134 136-145 mmol/L Potassium Level 3.7 3.5-5.1 mmol/L Chloride Level 99 98-107 mmol/L Carbon Dioxide Level 26 21-32 mmol/L Anion Gap 9.0 3-11 mmol/L Blood Urea Nitrogen 14 7-18 mg/dl Creatinine 0.86 0.60-1.40 mg/dl Est Creatinine Clear Calc Drug Dose 109.6 ml/min Estimated GFR () 115.6 Estimated GFR (Non- 99.7 BUN/Creatinine Ratio 16.8 10-20 Random Glucose 148 70-99 mg/dl Lactic Acid Level 1.8 0.4-2.0 mmol/L Calcium Level 8.9 8.5-10.1 mg/dl Total Bilirubin 0.9 0.2-1 mg/dl Direct Bilirubin 0.2 0-0.2 mg/dl Aspartate Amino Transf (AST/SGOT) 45 15-37 U/L Alanine Aminotransferase (ALT/SGPT) 44 12-78 U/L Alkaline Phosphatase 100 45-117 U/L C-Reactive Protein 24.60 0-0.29 mg/dl Total Protein 8.5 6.4-8.2 gm/dl Albumin 3.2 3.4-5.0 gm/dl Bedside Glucose 132 171 70-99 mg/dl Urine Color DK YELLOW Urine Appearance CLEAR CLEAR Urine pH 6.5 4.5-7.5 Urine Specific [place] 1.023 1.000-1.030 Urine Protein 2+ NEG Urine Glucose (UA) NEG NEG Urine Ketones TRACE NEG Urine Occult Blood NEG NEG Urine Nitrite NEG NEG Urine Bilirubin NEG NEG Urine Urobilinogen NEG NEG Urine Leukocyte Esterase NEG NEG Urine WBC (Auto) 1-5 0-5 /hpf Urine RBC (Auto) 0-4 0-4 /hpf Urine Hyaline Casts (Auto) 1-5 0-5 /lpf Urine Epithelial Cells (Auto) 10-20 0-5 /lpf Urine Bacteria (Auto) NEG NEG Test 12/16/17 06:48 Range/Units White Blood Count 12.48 4.8-10.8 K/uL Red Blood Count 2.67 4.7-6.1 M/uL Hemoglobin 8.6 14.0-18.0 g/dL Hematocrit 25.1 42-52 % Mean Corpuscular Volume 94.0 80-100 fL Mean Corpuscular Hemoglobin 32.2 25-34 pg Mean Corpuscular Hemoglobin Concent 34.3 32-36 g/dl Platelet Count 340 130-400 K/uL Mean Platelet Volume 8.3 7.4-10.4 fL Neutrophils (%) (Auto) 77.6 % Lymphocytes (%) (Auto) 11.9 % Monocytes (%) (Auto) 9.0 % Eosinophils (%) (Auto) 1.0 % Basophils (%) (Auto) 0.2 % Neutrophils # (Auto) 9.68 1.4-6.5 K/uL Lymphocytes # (Auto) 1.49 1.2-3.4 K/uL Monocytes # (Auto) 1.12 0.11-0.59 K/uL Eosinophils # (Auto) 0.12 0-0.5 K/uL Basophils # (Auto) 0.03 0-0.2 K/uL RDW Standard Deviation 40.9 36.4-46.3 fL RDW Coefficient of Variation 12.0 11.5-14.5 % Immature Granulocyte % (Auto) 0.3 % Immature Granulocyte # (Auto) 0.04 0.00-0.02 K/uL Red Blood Cell Morphology Unremarkable Sodium Level 137 136-145 mmol/L Potassium Level 3.7 3.5-5.1 mmol/L Chloride Level 102 98-107 mmol/L Carbon Dioxide Level 28 21-32 mmol/L Anion Gap 7.0 3-11 mmol/L Blood Urea Nitrogen 10 7-18 mg/dl Creatinine 0.82 0.60-1.40 mg/dl Est Creatinine Clear Calc Drug Dose 114.2 ml/min Estimated GFR () 117.8 Estimated GFR (Non- 101.7 BUN/Creatinine Ratio 12.1 10-20 Random Glucose 165 70-99 mg/dl Calcium Level 8.4 8.5-10.1 mg/dl Iron Level 36 35-175 mcg/dl Total Iron Binding Capacity 162 250-450 mcg/dl Ferritin 686.9 8.0-388.0 ng/ml Microbiology Results 12/15/17 Blood Culture, Received Pending 12/15/17 Blood Culture, Received Pending Assessment & Plan clinically improving on just IV antibiotics the blister on sole of foot is sterile blister rather than abcess-- will leave intact. if ruptures place antibiotic ointment and sterile gauze MRI shows no drainable abcess will sign off. please call if needed.
--- NOTE | 2017-12-16 18:12 | Progress Note ---
Internal Med Progress Note Date of Service: Dec 16, 2017. Provider Documentation: SUBJECTIVE: resting comfortably in the bed not much pain in the right foot afebrile eating fine no sob or cough OBJECTIVE: Vital Signs-as noted below Exam: General-alert and oriented. ENT-Normal hearing Neck-no neck masses Lungs-cta b/l no wheezing no crackles present Heart-S1 and S2 heard regular rate and rhythm no murmurs Abdomen-Soft bowel sounds present non tender no distension Extremities-right foot erythema extending upto lower 1/3rd of rodríguez blister on right plantar aspect of foot Neuro-alert and awake moves extremities Lab data as noted below. ASSESSMENT & PLAN: 52-year-old diabetic male with sepsis secondary to right lower extremity cellulitis and newly formed blister on plantar side of foot. 1. Sepsis secondary to right lower extremity cellulitis with possibility of new plantar abscess-failed outpatient therapy with ceftriaxone and Bactrim. MRI no osteomyelitis and no large fluid collection sydni drain currently on iv vanco and zosyn' will continue same abx surgery on board and will appreciate inputs. 3. Hypothyroidism-on Synthroid. 4. Diabetic neuropathy-on Elavil. 5. Hypertension-controlled. on lisinopril. Will monitor/ 6. Normocytic Anemia-no reports of recent bleeding, no indication for transfusion at this point. Colonoscopy in 2014 was normal. will f/u labs. stool for Hemoccult DVT prophylaxis-contraindicated in setting of possible procedure, cannot place SCDs because of infection on leg. Full code DISPOSITION transfer to medical floor Vital Signs: Date Time Temp Pulse Resp B/P (MAP) Pulse Ox O2 Delivery O2 Flow Rate FiO2 12/16/17 15:41 37.2 90 16 117/74 (88) 94 Room Air 12/16/17 15:20 Room Air 12/16/17 14:10 36.7 89 16 128/77 (94) 94 Room Air 12/16/17 14:02 37.4 92 20 98 12/16/17 12:00 Room Air 12/16/17 11:59 37.4 92 20 116/72 (87) 98 Room Air 12/16/17 08:00 Room Air 12/16/17 07:26 37.1 96 16 137/86 (103) 91 Room Air 12/16/17 04:00 Room Air 12/16/17 03:30 37.6 96 19 145/81 (102) 91 Room Air 12/16/17 00:01 Room Air 12/15/17 23:10 37.8 97 16 130/77 (94) 92 Room Air 12/15/17 20:00 Room Air 12/15/17 18:25 38.1 103 16 138/81 95 Room Air 12/15/17 18:14 38.1 103 16 138/81 (100) 95 Room Air Lab Results: Results Past 24 Hours Test 12/15/17 19:31 12/15/17 22:27 12/16/17 06:00 12/16/17 06:48 Range/Units Bedside Glucose 132 171 70-99 mg/dl Urine Color DK YELLOW Urine Appearance CLEAR CLEAR Urine pH 6.5 4.5-7.5 Urine Specific [place] 1.023 1.000-1.030 Urine Protein 2+ NEG Urine Glucose (UA) NEG NEG Urine Ketones TRACE NEG Urine Occult Blood NEG NEG Urine Nitrite NEG NEG Urine Bilirubin NEG NEG Urine Urobilinogen NEG NEG Urine Leukocyte Esterase NEG NEG Urine WBC (Auto) 1-5 0-5 /hpf Urine RBC (Auto) 0-4 0-4 /hpf Urine Hyaline Casts (Auto) 1-5 0-5 /lpf Urine Epithelial Cells (Auto) 10-20 0-5 /lpf Urine Bacteria (Auto) NEG NEG White Blood Count 12.48 4.8-10.8 K/uL Red Blood Count 2.67 4.7-6.1 M/uL Hemoglobin 8.6 14.0-18.0 g/dL Hematocrit 25.1 42-52 % Mean Corpuscular Volume 94.0 80-100 fL Mean Corpuscular Hemoglobin 32.2 25-34 pg Mean Corpuscular Hemoglobin Concent 34.3 32-36 g/dl Platelet Count 340 130-400 K/uL Mean Platelet Volume 8.3 7.4-10.4 fL Neutrophils (%) (Auto) 77.6 % Lymphocytes (%) (Auto) 11.9 % Monocytes (%) (Auto) 9.0 % Eosinophils (%) (Auto) 1.0 % Basophils (%) (Auto) 0.2 % Neutrophils # (Auto) 9.68 1.4-6.5 K/uL Lymphocytes # (Auto) 1.49 1.2-3.4 K/uL Monocytes # (Auto) 1.12 0.11-0.59 K/uL Eosinophils # (Auto) 0.12 0-0.5 K/uL Basophils # (Auto) 0.03 0-0.2 K/uL RDW Standard Deviation 40.9 36.4-46.3 fL RDW Coefficient of Variation 12.0 11.5-14.5 % Immature Granulocyte % (Auto) 0.3 % Immature Granulocyte # (Auto) 0.04 0.00-0.02 K/uL Red Blood Cell Morphology Unremarkable Sodium Level 137 136-145 mmol/L Potassium Level 3.7 3.5-5.1 mmol/L Chloride Level 102 98-107 mmol/L Carbon Dioxide Level 28 21-32 mmol/L Anion Gap 7.0 3-11 mmol/L Blood Urea Nitrogen 10 7-18 mg/dl Creatinine 0.82 0.60-1.40 mg/dl Est Creatinine Clear Calc Drug Dose 114.2 ml/min Estimated GFR () 117.8 Estimated GFR (Non- 101.7 BUN/Creatinine Ratio 12.1 10-20 Random Glucose 165 70-99 mg/dl Calcium Level 8.4 8.5-10.1 mg/dl Iron Level 36 35-175 mcg/dl Total Iron Binding Capacity 162 250-450 mcg/dl Ferritin 686.9 8.0-388.0 ng/ml Test 12/16/17 10:50 12/16/17 17:09 Range/Units Bedside Glucose 191 160 70-99 mg/dl
[2017-12-16] MEDS: AMITRIPTYLINE HCL 10 MG TAB PO SCH (21:10)
[2017-12-17] VITALS (8 sets, daily range): BP systolic 112–154; BP diastolic 69–88; PULSE 89–100; TEMP 36.7–38.9; O2SAT 84–94
[2017-12-17] MEDS: VANCOMYCIN IV 1,500 MG in SODIUM CHLORIDE 0.9% 500ML 500 ML IV SCH ×3 (01:47→19:53)
[2017-12-17] MEDS: LEVOTHYROXINE 50 MCG TAB PO SCH (06:05)
[2017-12-17] MEDS: PIPERACILL/TAZOBAC IV 3.375 GM in DEXTROSE 5% 100ML IV SCH ×3 (06:05→21:53)
[2017-12-17 07:00] LABS: HEMOGLOBIN A1C 6.6 % (4.5-5.6)
[2017-12-17] MEDS: ACETAMINOPHEN 325 MG TAB PO PRN (07:57)
[2017-12-17 08:20] LABS: BASO % 0.5 %; BASO ABS # 0.06 K/uL (0-0.2); EOS % 0.9 %; HEMATOCRIT 25.3 % (42-52); HEMOGLOBIN 8.6 g/dL (14.0-18.0); IG# 0.04 K/uL (0.00-0.02); LYMPH % 12.8 %; LYMPH ABS # 1.41 K/uL (1.2-3.4); MEAN CELL VOLUME 95.1 fL (80-100); MEAN CORPUSCULAR HEMOGLOBIN 32.3 pg (25-34); MEAN PLATELET VOLUME 8.4 fL (7.4-10.4); MONO % 9.8 %; MONO ABS # 1.08 K/uL (0.11-0.59); NEUT % 75.6 %; NEUT ABS # 8.35 K/uL (1.4-6.5); PLATELET COUNT 379 K/uL (130-400); RED CELL DISTRIBUTION WIDTH CV 12.2 % (11.5-14.5); RED CELL DISTRIBUTION WIDTH SD 41.5 fL (36.4-46.3); WHITE BLOOD COUNT 11.04 K/uL (4.8-10.8)
[2017-12-17 08:40] LABS: CALCIUM 8.6 mg/dl (8.5-10.1); CREATININE 0.76 mg/dl (0.60-1.40)
[2017-12-17] MEDS: ATORVASTATIN 40 MG TAB PO SCH (08:50)
[2017-12-17] MEDS: LISINOPRIL 10 MG TAB PO SCH (08:51)
[2017-12-17] MEDS: INSULIN ASPART 100 UNITS/ML 3 ML PEN SC SCH ×4 (08:56→21:10)
[2017-12-17] MEDS: INSULIN GLARGINE SOLOSTAR 100 UNITS/ML 3 ML PEN SC SCH ×2 (08:57→21:11)
--- NOTE | 2017-12-17 10:23 | Progress Note ---
Progress Note Date of Service Dec 17, 2017. Progress Note ID Consult Dictated #[id number] A/P: 1. RLE Cellulitis -Continue IV abx for now, hope to change to po soon -Elevate RLE -Would benefit from regular podiatry care post d/c -thank you
--- NOTE | 2017-12-17 11:08 | INFECT. DISEASE CONSULTATION ---
DATE OF CONSULTATION: 12/17/2017 HISTORY OF PRESENT ILLNESS: This is a 52-year-old gentleman who was admitted to the hospital with worsening right lower erythema and swelling. He was being followed by his primary care physician and received 2 doses of intramuscular Rocephin and then received a prescription of Bactrim. He did not have significant improvement within the 24-36 hour period and was subsequently sent to the ER for admission. In the ER, he was started on vancomycin and Zosyn and is tolerating these well. On the , he had a T-max of 38.1. On the , he had no fevers, but this morning he did have a T-max of 38.3. He states he was asymptomatic, but did have some chills associated with this. His white blood cell count was initially elevated at 17,000 and this has improved to 11. His sed rate is elevated at 77 and a CRP is elevated at 24.6. He did undergo an MRI of the leg and foot. This did show evidence of cellulitis with a small subcentimeter collection. No abscess or drainable collection was noted and there was no evidence of osteomyelitis. He was initially evaluated by surgery, but there is no need for surgical intervention at this time. Blood cultures were also performed as his initial workup and those have been negative to date. Overall, the patient does not feel he has had significant improvement. He denies any pain but states he continues with some discomfort and numbness. He denies any chest pain, cough, shortness of breath, nausea, vomiting or diarrhea. He is tolerating his antibiotics well. He does have a blister on the surface of his foot and he denies any drainage from this. He has no known trauma to the area. His remaining review of systems is reviewed and is unremarkable. PAST MEDICAL HISTORY: Significant for benign neoplasm of the meninges, diabetic neuropathy, type 2 diabetes, hypertension and hypothyroidism. PAST SURGICAL HISTORY: Unremarkable. FAMILY HISTORY: Noncontributory. SOCIAL HISTORY: Negative for tobacco use or drug use. He drinks occasionally. He is . ALLERGIES: He has no known drug allergies. CURRENT MEDICATIONS: Include Lipitor, lisinopril, Synthroid, vancomycin, Zosyn, Lantus insulin, Elavil, Tylenol, Zofran, MiraLax. PHYSICAL EXAMINATION: VITAL SIGNS: He did have a T-max of 38.9 at 8:00 this morning. He currently is 37.2, pulse 100, respiratory rate 24, blood pressure 132/72, oxygen saturation is 90% on room air. GENERAL: He is awake, alert and oriented x3. He is in no acute distress. HEENT: Mucous membranes are moist. Extraocular muscles are intact. HEART: Regular. LUNGS: Clear bilaterally. ABDOMEN: Nondistended. EXTREMITIES: There is minimal right lower extremity edema. There is no warmth or tenderness. There is a blister on the plantar surface of the foot. There is no opening or drainage. There is no bleeding compared to pictures at the patient did show me on his cell phone. There is improved erythema of the foot. LABORATORY STUDIES: CBC reveals a white blood cell count of 11.0, hemoglobin 8.6, platelets are 379. Sed rate was elevated at 77. Chemistry panel reveals a sodium of 137, potassium 4.0, chloride 102, bicarbonate 29, BUN 10, creatinine 0.7, glucose 168. CRP was elevated at 24.6. LFTs were normal with a mild elevation of AST. UA was negative in the ER. Blood cultures are no growth to date x2 sets. Imaging is as above. ASSESSMENT AND PLAN: Right lower extremity cellulitis. He will continue on empiric IV antibiotics. His blood cultures are negative today. We did discuss transition to oral antibiotics at the time of discharge should he remain afebrile with improvement in his cellulitis. I would recommend a podiatry evaluation post-discharge from the hospital with his history of diabetic neuropathy. He has not had podiatry evaluation to date. Thank you for this consultation.
[2017-12-17] MEDS ORDERED: VANCOMYCIN TROUGH ONE ×2 (13:30→14:00)
--- NOTE | 2017-12-17 15:47 | Pharmacy Progress Note ---
Pharmacy Abx Dose Short Note Date of Service Dec 17, 2017. Assessment & Plan Assessment * Mr Mckeon is a 52 year old male receiving Vanc/Zosyn for treatment of RLE cellulitis (no evidence of osteo or abscess per imaging) * Day #3 of antimicrobial therapy * ID consult in place Plan Vancomycin * Trough level of 7.9 mcg/mL is significantly subtherapeutic * Change to Vanc 1500 mg IV every 8 hours * Goal trough level for cellulitis/sepsis : 15 to 20 mcg/mL * Trough level ordered for: tomorrow prior to the 1200 dose, to assess dose appropriateness Continue Zosyn 3.375gm IV q8h Pharmacy will continue to follow and will adjust dose/frequency as necessary. Thank you.
--- NOTE | 2017-12-17 18:48 | Progress Note ---
Internal Med Progress Note Date of Service: Dec 17, 2017. Provider Documentation: SUBJECTIVE: resting comfortably had temp spike today morning patient thinks redness on rodríguez improved but may have worsened on foot denies sob or chest pain says anxious to put weight on his right foot not moved bowels yet OBJECTIVE: Vital Signs-as noted below Exam: General-alert and oriented. ENT-Normal hearing Neck-no neck masses Lungs-cta b/l no wheezing no crackles present Heart-S1 and S2 heard regular rate and rhythm no murmurs Abdomen-Soft bowel sounds present non tender no distension Extremities-right foot erythema extending upto lower 1/3rd of rodríguez blister on right plantar aspect of foot- seems improving Neuro-alert and awake moves extremities Lab data as noted below. ASSESSMENT & PLAN: 52-year-old diabetic male with sepsis secondary to right lower extremity cellulitis and newly formed blister on plantar side of foot.On Iv vanco and Zosyn. MRi no osteomyelitis. Seen by surgery and thinks blister is mostly sterile. ID on board.Continue to monitor for improvement 1. Sepsis secondary to right lower extremity cellulitis with possibility of new plantar abscess-failed outpatient therapy with ceftriaxone and Bactrim. MRI no osteomyelitis and no large fluid collection to drain currently on iv vanco and zosyn' surgery on board and will appreciate inputs- thinks blister is sterile and if it opens to apply antibiotic ointment and sterile gauze consulted ID had patient had temp spike and questionable worsening of erythema on foot. To continue current abx and monitor . Leukocytosis improving 3. Hypothyroidism-on Synthroid. 4. Diabetic neuropathy-on Elavil. 5. Hypertension-controlled. on lisinopril. Will monitor/ 6. Normocytic Anemia-no reports of recent bleeding, no indication for transfusion at this point. Colonoscopy in 2014 was normal. will f/u labs.Hb 8.6 today. Iron low normal. will f/u stool for Hemoccult. May consider consulting GI/heme/onco or out patient workup. DVT prophylaxis-if heme occult negative. will place on Lovenox. No scds secondary to cellulitis. ambulation Full code DISPOSITION Monitor in medical floor Vital Signs: Date Time Temp Pulse Resp B/P (MAP) Pulse Ox O2 Delivery O2 Flow Rate FiO2 12/17/17 16:02 36.7 92 18 112/69 (83) 90 Room Air 12/17/17 16:00 Room Air 12/17/17 13:35 37.1 89 16 115/70 (85) 91 Room Air 12/17/17 09:45 90 Room Air 12/17/17 09:01 37.2 12/17/17 08:19 38.3 12/17/17 08:03 38.9 100 24 132/72 (92) 90 Room Air 12/17/17 07:15 Room Air 12/17/17 00:30 Room Air 12/16/17 23:06 37.4 88 14 103/65 (78) 90 Room Air Lab Results: Results Past 24 Hours Test 12/16/17 20:34 12/17/17 07:44 12/17/17 08:02 12/17/17 12:38 Range/Units Bedside Glucose 232 168 182 70-99 mg/dl White Blood Count 11.04 4.8-10.8 K/uL Red Blood Count 2.66 4.7-6.1 M/uL Hemoglobin 8.6 14.0-18.0 g/dL Hematocrit 25.3 42-52 % Mean Corpuscular Volume 95.1 80-100 fL Mean Corpuscular Hemoglobin 32.3 25-34 pg Mean Corpuscular Hemoglobin Concent 34.0 32-36 g/dl Platelet Count 379 130-400 K/uL Mean Platelet Volume 8.4 7.4-10.4 fL Neutrophils (%) (Auto) 75.6 % Lymphocytes (%) (Auto) 12.8 % Monocytes (%) (Auto) 9.8 % Eosinophils (%) (Auto) 0.9 % Basophils (%) (Auto) 0.5 % Neutrophils # (Auto) 8.35 1.4-6.5 K/uL Lymphocytes # (Auto) 1.41 1.2-3.4 K/uL Monocytes # (Auto) 1.08 0.11-0.59 K/uL Eosinophils # (Auto) 0.10 0-0.5 K/uL Basophils # (Auto) 0.06 0-0.2 K/uL RDW Standard Deviation 41.5 36.4-46.3 fL RDW Coefficient of Variation 12.2 11.5-14.5 % Immature Granulocyte % (Auto) 0.4 % Immature Granulocyte # (Auto) 0.04 0.00-0.02 K/uL Red Blood Cell Morphology Unremarkable Sodium Level 137 136-145 mmol/L Potassium Level 4.0 3.5-5.1 mmol/L Chloride Level 102 98-107 mmol/L Carbon Dioxide Level 29 21-32 mmol/L Anion Gap 5.0 3-11 mmol/L Blood Urea Nitrogen 10 7-18 mg/dl Creatinine 0.76 0.60-1.40 mg/dl Est Creatinine Clear Calc Drug Dose 123.2 ml/min Estimated GFR () 121.6 Estimated GFR (Non- 104.9 BUN/Creatinine Ratio 13.4 10-20 Random Glucose 157 70-99 mg/dl Calcium Level 8.6 8.5-10.1 mg/dl Test 12/17/17 13:38 Range/Units Vancomycin Level Trough 7.9 SEE COMMENT mcg/ml
[2017-12-17] MEDS: AMITRIPTYLINE HCL 10 MG TAB PO SCH (21:08)
[2017-12-18] MEDS: VANCOMYCIN IV 1,500 MG in SODIUM CHLORIDE 0.9% 500ML 500 ML IV SCH ×3 (04:18→20:25)
[2017-12-18] MEDS: LEVOTHYROXINE 50 MCG TAB PO SCH (05:32)
[2017-12-18] MEDS: PIPERACILL/TAZOBAC IV 3.375 GM in DEXTROSE 5% 100ML IV SCH ×3 (06:22→21:40)
[2017-12-18 07:20] VITALS: O2SAT 94
[2017-12-18 08:00] LABS: BASO % 0.7 %; BASO ABS # 0.07 K/uL (0-0.2); EOS % 1.7 %; EOS ABS # 0.17 K/uL (0-0.5); HEMATOCRIT 26.7 % (42-52); HEMOGLOBIN 8.9 g/dL (14.0-18.0); IG# 0.06 K/uL (0.00-0.02); LYMPH % 16.9 %; LYMPH ABS # 1.73 K/uL (1.2-3.4); MEAN CELL VOLUME 95.7 fL (80-100); MEAN CORPUSCULAR HEMOGLOBIN 31.9 pg (25-34); MEAN CORPUSCULAR HGB CONC 33.3 g/dl (32-36); MEAN PLATELET VOLUME 8.4 fL (7.4-10.4); MONO % 8.5 %; MONO ABS # 0.87 K/uL (0.11-0.59); NEUT % 71.6 %; NEUT ABS # 7.33 K/uL (1.4-6.5); PLATELET COUNT 434 K/uL (130-400); RED CELL DISTRIBUTION WIDTH CV 12.1 % (11.5-14.5); RED CELL DISTRIBUTION WIDTH SD 41.9 fL (36.4-46.3); WHITE BLOOD COUNT 10.23 K/uL (4.8-10.8)
[2017-12-18 08:20] LABS: CALCIUM 8.9 mg/dl (8.5-10.1); CREATININE 0.8 mg/dl (0.60-1.40); POTASSIUM 3.9 mmol/L (3.5-5.1)
[2017-12-18 08:25] VITALS: BP 131/84; PULSE 93; TEMP 36.7; O2SAT 97
[2017-12-18] MEDS: INSULIN GLARGINE SOLOSTAR 100 UNITS/ML 3 ML PEN SC SCH ×2 (09:15→20:46)
[2017-12-18] MEDS: INSULIN ASPART 100 UNITS/ML 3 ML PEN SC SCH ×4 (09:16→20:46)
[2017-12-18] MEDS: ATORVASTATIN 40 MG TAB PO SCH (09:16)
[2017-12-18] MEDS: LISINOPRIL 10 MG TAB PO SCH (09:17)
[2017-12-18] MEDS ORDERED: VANCOMYCIN TROUGH ONE (11:30)
--- NOTE | 2017-12-18 13:49 | Pharmacy Progress Note ---
Pharmacy Abx Dose Short Note Date of Service Dec 18, 2017. Assessment & Plan Assessment * Mr Mckeon is a 52 year old male receiving Vanc/Zosyn for treatment of RLE cellulitis (no evidence of osteo or abscess per imaging) * Day #4 of antimicrobial therapy * ID consult in place Plan Vancomycin * Trough level of 16.5 mcg/mL is therapeutic * Continue Vanc 1500 mg IV every 8 hours * Goal trough level for cellulitis/sepsis : 15 to 20 mcg/mL * No further levels have been ordered at this time. Will re-consider the need for additional monitoring if patient remains on vanc for several days or if there are changes in renal function. Continue Zosyn 3.375gm IV q8h Pharmacy will continue to follow and will adjust dose/frequency as necessary. Thank you.
--- NOTE | 2017-12-18 14:43 | Progress Note ---
Subjective Date of Service: Dec 18, 2017. Subjective Pt evaluation today including: conversation w/ patient, physical exam, chart review, lab review pt feeling better today, states less redness, swelling leg. blood cultures remain negative, afebrile overnight .wbc nml. tolerating abx, vanco trough low. blister remains on foot, closed, no drainage. no pain. all remaining ros reviewed and are negative. Problem List Medical Problems: (1) Cellulitis of foot, right Status: Acute (2) Cellulitis of right leg Status: Acute Objective Vital Signs Date Time Temp Pulse Resp B/P (MAP) Pulse Ox O2 Delivery O2 Flow Rate FiO2 12/18/17 08:25 36.7 93 18 131/84 (100) 97 Room Air 12/18/17 07:20 94 Room Air 12/17/17 23:20 Nasal Cannula 2.0 12/17/17 22:44 37.1 94 Nasal Cannula 2.0 12/17/17 22:40 37.3 94 18 154/88 (110) 84 Room Air 12/17/17 16:02 36.7 92 18 112/69 (83) 90 Room Air 12/17/17 16:00 Room Air Physical Exam General Appearance: WD/WN, no apparent distress Eyes: normal inspection, EOMI Neck: supple Respiratory/Chest: normal breath sounds, no respiratory distress Cardiovascular: regular rate, rhythm Abdomen: soft Extremities: non-tender, + pedal edema Neurologic/Psychiatric: alert, oriented x 3 Skin: normal color Comments: right foot blister intact, unchanged, no drainage/weeping. erythema almost resolved, no warmth, non tender but neuropathy. still with some edema but improving. Laboratory Results Item Value Date Time Blood Culture - Preliminary Resulted 12/15/17 1609 Blood NO GROWTH TO DATE. Blood Culture - Preliminary Resulted 12/15/17 1607 Blood NO GROWTH TO DATE. Last 24 Hours Test 12/17/17 17:06 12/17/17 20:43 12/18/17 07:20 12/18/17 08:21 Bedside Glucose 193 mg/dl 191 mg/dl 282 mg/dl White Blood Count 10.23 K/uL Red Blood Count 2.79 M/uL Hemoglobin 8.9 g/dL Hematocrit 26.7 % Mean Corpuscular Volume 95.7 fL Mean Corpuscular Hemoglobin 31.9 pg Mean Corpuscular Hemoglobin Concent 33.3 g/dl Platelet Count 434 K/uL Mean Platelet Volume 8.4 fL Neutrophils (%) (Auto) 71.6 % Lymphocytes (%) (Auto) 16.9 % Monocytes (%) (Auto) 8.5 % Eosinophils (%) (Auto) 1.7 % Basophils (%) (Auto) 0.7 % Neutrophils # (Auto) 7.33 K/uL Lymphocytes # (Auto) 1.73 K/uL Monocytes # (Auto) 0.87 K/uL Eosinophils # (Auto) 0.17 K/uL Basophils # (Auto) 0.07 K/uL RDW Standard Deviation 41.9 fL RDW Coefficient of Variation 12.1 % Immature Granulocyte % (Auto) 0.6 % Immature Granulocyte # (Auto) 0.06 K/uL Red Blood Cell Morphology Unremarkable Sodium Level 136 mmol/L Potassium Level 3.9 mmol/L Chloride Level 102 mmol/L Carbon Dioxide Level 27 mmol/L Anion Gap 7.0 mmol/L Blood Urea Nitrogen 12 mg/dl Creatinine 0.80 mg/dl Est Creatinine Clear Calc Drug Dose 117.0 ml/min Estimated GFR () 119.0 Estimated GFR (Non- 102.7 BUN/Creatinine Ratio 14.8 Random Glucose 180 mg/dl Calcium Level 8.9 mg/dl Magnesium Level 2.2 mg/dl Test 12/18/17 09:05 12/18/17 11:53 Stool Occult Blood NEGATIVE Vancomycin Level Trough 16.5 mcg/ml Assessment and Plan (1) Cellulitis of right leg Assessment & Plan: can continue IV abx for now, on d/c would transition to po doxy x 7 more days. discussed suggestion for podiatry care post d/c. ok for d/c when otherwise stable.
--- NOTE | 2017-12-18 16:21 | Progress Note ---
Medicine Progress Note Date & Time of Visit: Dec 18, 2017 at 16:05. Subjective 52-year-old diabetic male with sepsis secondary to right lower extremity cellulitis and newly formed blister on plantar side of foot.On Iv vanco and Zosyn. MRi no osteomyelitis. Seen by surgery and thinks blister is mostly sterile. ID on board.Continue to monitor for improvement. Pt is otherwise stable today with no complaints or new symptoms. He is ambulating without reported pain. Objective Last 8 Hrs Date Time Temp Pulse Resp B/P (MAP) Pulse Ox O2 Delivery O2 Flow Rate FiO2 12/18/17 08:25 36.7 93 18 131/84 (100) 97 Room Air Physical Exam: GEN: WNWD, in no acute distress, alert and appropriate HEENT: NC/AT, normal sclerae, MMM CARDIO: reg rate, S1/2 heard without m/g/r LUNGS: CTA bilaterally, no crackles, rales or wheezes, good diaphragmatic excursion ABD: soft, non-tender, non-distended, no rebound or guarding EXTREMITY: RLE-still with somem residual warmth and erythema to dorsal side of foot, proximal leg is almost recovered with respect to erythema. Blister on plantar fascia is still intact. LLE without acute changes. Dry skin noted throughout. Well-healed scratches to lateral right leg. NEURO: CN 2-12 grossly intact, sensation intact throughout MUSC: moves all extremities easily and equally. No gross focal deficits. SKIN: warm and dry and RLE findings as above. Laboratory Results: 12/18/17 07:20 Red Blood Count 2.79, Mean Corpuscular Volume 95.7, Mean Corpuscular Hemoglobin 31.9, Mean Corpuscular Hemoglobin Concent 33.3, Mean Platelet Volume 8.4, Neutrophils (%) (Auto) 71.6, Lymphocytes (%) (Auto) 16.9, Monocytes (%) (Auto) 8.5, Eosinophils (%) (Auto) 1.7, Basophils (%) (Auto) 0.7, Neutrophils # (Auto) 7.33, Lymphocytes # (Auto) 1.73, Monocytes # (Auto) 0.87, Eosinophils # (Auto) 0.17, Basophils # (Auto) 0.07 12/18/17 07:20 Test 12/15/17 16:07 12/15/17 22:27 12/16/17 06:48 12/18/17 07:20 Erythrocyte Sedimentation Rate 77 mm/hr (0-14) Prothrombin Time 10.6 SECONDS (9.0-12.0) Prothromb Time International Ratio 1.0 (0.9-1.1) Activated Partial Thromboplast Time 31.0 SECONDS (21.0-31.0) Partial Thromboplastin Ratio 1.2 Estimated Average Glucose 143 mg/dl Hemoglobin A1c 6.6 % (4.5-5.6) Lactic Acid Level 1.8 mmol/L (0.4-2.0) Total Bilirubin 0.9 mg/dl (0.2-1) Direct Bilirubin 0.2 mg/dl (0-0.2) Aspartate Amino Transf (AST/SGOT) 45 U/L (15-37) Alanine Aminotransferase (ALT/SGPT) 44 U/L (12-78) Alkaline Phosphatase 100 U/L (45-117) C-Reactive Protein 24.60 mg/dl (0-0.29) Total Protein 8.5 gm/dl (6.4-8.2) Albumin 3.2 gm/dl (3.4-5.0) Urine Color DK YELLOW Urine Appearance CLEAR (CLEAR) Urine pH 6.5 (4.5-7.5) Urine Specific Union 1.023 (1.000-1.030) Urine Protein 2+ (NEG) Urine Glucose (UA) NEG (NEG) Urine Ketones TRACE (NEG) Urine Occult Blood NEG (NEG) Urine Nitrite NEG (NEG) Urine Bilirubin NEG (NEG) Urine Urobilinogen NEG (NEG) Urine Leukocyte Esterase NEG (NEG) Urine WBC (Auto) 1-5 /hpf (0-5) Urine RBC (Auto) 0-4 /hpf (0-4) Urine Hyaline Casts (Auto) 1-5 /lpf (0-5) Urine Epithelial Cells (Auto) 10-20 /lpf (0-5) Urine Bacteria (Auto) NEG (NEG) Iron Level 36 mcg/dl (35-175) Total Iron Binding Capacity 162 mcg/dl (250-450) Ferritin 686.9 ng/ml (8.0-388.0) White Blood Count 10.23 K/uL (4.8-10.8) Red Blood Count 2.79 M/uL (4.7-6.1) Hemoglobin 8.9 g/dL (14.0-18.0) Hematocrit 26.7 % (42-52) Mean Corpuscular Volume 95.7 fL (80-100) Mean Corpuscular Hemoglobin 31.9 pg (25-34) Mean Corpuscular Hemoglobin Concent 33.3 g/dl (32-36) Platelet Count 434 K/uL (130-400) Mean Platelet Volume 8.4 fL (7.4-10.4) Neutrophils (%) (Auto) 71.6 % Lymphocytes (%) (Auto) 16.9 % Monocytes (%) (Auto) 8.5 % Eosinophils (%) (Auto) 1.7 % Basophils (%) (Auto) 0.7 % Neutrophils # (Auto) 7.33 K/uL (1.4-6.5) Lymphocytes # (Auto) 1.73 K/uL (1.2-3.4) Monocytes # (Auto) 0.87 K/uL (0.11-0.59) Eosinophils # (Auto) 0.17 K/uL (0-0.5) Basophils # (Auto) 0.07 K/uL (0-0.2) RDW Standard Deviation 41.9 fL (36.4-46.3) RDW Coefficient of Variation 12.1 % (11.5-14.5) Immature Granulocyte % (Auto) 0.6 % Immature Granulocyte # (Auto) 0.06 K/uL (0.00-0.02) Red Blood Cell Morphology Unremarkable Anion Gap 7.0 mmol/L (3-11) Est Creatinine Clear Calc Drug Dose 117.0 ml/min Estimated GFR () 119.0 Estimated GFR (Non- 102.7 BUN/Creatinine Ratio 14.8 (10-20) Calcium Level 8.9 mg/dl (8.5-10.1) Magnesium Level 2.2 mg/dl (1.8-2.4) Test 12/18/17 08:21 12/18/17 09:05 12/18/17 11:53 Bedside Glucose 282 mg/dl (70-99) Stool Occult Blood NEGATIVE (NEGATIVE) Vancomycin Level Trough 16.5 mcg/ml (SEE COMMENT) Date/Time Source Procedure Growth Status 12/15/17 16:09 Blood Blood Culture - Preliminary NO GROWTH TO DATE. Resulted Last 24 Hours Test 3/19/18 17:06 12/17/17 20:43 12/18/17 07:20 12/18/17 08:21 Bedside Glucose 193 mg/dl 191 mg/dl 282 mg/dl White Blood Count 10.23 K/uL Red Blood Count 2.79 M/uL Hemoglobin 8.9 g/dL Hematocrit 26.7 % Mean Corpuscular Volume 95.7 fL Mean Corpuscular Hemoglobin 31.9 pg Mean Corpuscular Hemoglobin Concent 33.3 g/dl Platelet Count 434 K/uL Mean Platelet Volume 8.4 fL Neutrophils (%) (Auto) 71.6 % Lymphocytes (%) (Auto) 16.9 % Monocytes (%) (Auto) 8.5 % Eosinophils (%) (Auto) 1.7 % Basophils (%) (Auto) 0.7 % Neutrophils # (Auto) 7.33 K/uL Lymphocytes # (Auto) 1.73 K/uL Monocytes # (Auto) 0.87 K/uL Eosinophils # (Auto) 0.17 K/uL Basophils # (Auto) 0.07 K/uL RDW Standard Deviation 41.9 fL RDW Coefficient of Variation 12.1 % Immature Granulocyte % (Auto) 0.6 % Immature Granulocyte # (Auto) 0.06 K/uL Red Blood Cell Morphology Unremarkable Sodium Level 136 mmol/L Potassium Level 3.9 mmol/L Chloride Level 102 mmol/L Carbon Dioxide Level 27 mmol/L Anion Gap 7.0 mmol/L Blood Urea Nitrogen 12 mg/dl Creatinine 0.80 mg/dl Est Creatinine Clear Calc Drug Dose 117.0 ml/min Estimated GFR () 119.0 Estimated GFR (Non- 102.7 BUN/Creatinine Ratio 14.8 Random Glucose 180 mg/dl Calcium Level 8.9 mg/dl Magnesium Level 2.2 mg/dl Test 12/18/17 09:05 12/18/17 11:53 Stool Occult Blood NEGATIVE Vancomycin Level Trough 16.5 mcg/ml Assessment & Plan 52-year-old diabetic male with sepsis secondary to right lower extremity cellulitis and newly formed blister on plantar side of foot.On Iv vanco and Zosyn. MRi no osteomyelitis. Seen by surgery and thinks blister is mostly sterile. ID on board.Continue to monitor for improvement. Pt is otherwise stable today with no complaints or new symptoms. He is ambulating without reported pain. 1. Sepsis secondary to right lower extremity cellulitis -failed outpatient therapy with ceftriaxone and Bactrim. MRI no osteomyelitis and no large fluid collection to drain. Continues on IV vanco and zosyn. Per ID ok to go home on doxycycline. Will evaluate improvement tomorrow and decide. 2. Hypothyroidism-cont Synthroid 3. DMII-uncontrolled, increase Lantus and tighten ISS for better control. 4. Diabetic neuropathy-on Elavil per home regimen. 5. Hypertension-controlled. Cont lisinopril 6. Normocytic Anemia-no reports of recent bleeding, no indication for transfusion at this point. Colonoscopy in 2014 was normal. H/H stable but low. Transferrin sat was low enough at 22% to potentially give a trial of iron and follow-up as outpatient. Will start iron trial now. DVT prophylaxis-Lovenox. Full code Dispo-cont Med/Surg Monica Becerra DO [facility] Hospitalist Consultants: ID-Dr. Monika Wilhelm Current Inpatient Medications: Current Inpatient Medications Medications (Trade) Dose Ordered Sig/Minal Route Start Time Stop Time Status Last Admin Dose Admin Acetaminophen (Tylenol Tab) 650 mg Q4H PRN PO 12/15/17 18:15 01/14/18 18:14 12/17/17 07:57 650 MG Ondansetron HCl (Zofran Inj) 4 mg Q6H PRN IV 12/15/17 18:15 01/14/18 18:14 12/16/17 08:04 4 MG Polyethylene (Miralax Powder Packet) 17 gm DAILY PRN PO 12/15/17 18:15 01/14/18 18:14 Insulin Glargine (Lantus Solostar Pen) 7 units Q12 SC 12/15/17 21:00 01/14/18 20:59 12/18/17 09:15 7 UNITS Insulin Aspart (novoLOG ASPART) SLIDING SCALE If C... ACHS SC 12/15/17 21:00 01/14/18 20:59 12/18/17 13:06 5 UNITS Glucose (Glucose 40% Gel) 15-30 GRAMS 15 GRAMS... UD PRN PO 12/15/17 18:15 01/14/18 18:14 Glucose (Glucose Chew Tab) 4-8 Tablets 4 Tabl... UD PRN PO 12/15/17 18:15 01/14/18 18:14 Dextrose (Dextrose 50% 50ML Syringe) 25-50ML OF 50% DW IV FOR... UD PRN IV 12/15/17 18:15 01/14/18 18:14 Glucagon (Glucagon Inj) 1 mg UD PRN SQ 12/15/17 18:15 01/14/18 18:14 Miscellaneous Information (Consult) 1 ea UD PRN N/A 12/15/17 19:55 01/14/18 19:54 Amitriptyline HCl (Elavil Tab) 10 mg HS PO 12/15/17 21:00 01/14/18 20:59 12/17/17 21:08 10 MG Atorvastatin Calcium (Lipitor Tab) 40 mg DAILY PO 12/16/17 09:00 01/15/18 08:59 12/18/17 09:16 40 MG Levothyroxine Sodium (Synthroid Tab) 50 mcg DAILYBB PO 12/16/17 06:00 01/15/18 05:59 12/18/17 05:32 50 MCG Lisinopril (Zestril Tab) 10 mg DAILY PO 12/16/17 09:00 01/15/18 08:59 12/18/17 09:17 10 MG Miscellaneous Information (Consult) 1 ea UD PRN N/A 12/15/17 20:00 01/14/18 19:59 Piperacillin Sod/ Tazobactam Sod 3.375 gm/Dextrose 115 ml @ 28.75 mls/ hr Q8H IV 12/15/17 22:00 12/25/17 21:59 12/18/17 14:31 28.75 MLS/HR Vancomycin HCl 1500 mg/Sodium Chloride 530 ml @ 200 mls/hr Q8H IV 12/17/17 20:00 12/26/17 03:59 12/18/17 12:22 200 MLS/HR
[2017-12-18 16:33] VITALS: BP 129/84; PULSE 87; TEMP 37.4; O2SAT 97
[2017-12-18] MEDS: ENOXAPARIN 40 MG/0.4 ML SYR SQ SCH (17:41)
[2017-12-18] MEDS: AMITRIPTYLINE HCL 10 MG TAB PO SCH (20:41)
[2017-12-18 22:35] VITALS: BP 122/77; PULSE 93; TEMP 37.1; O2SAT 93
[2017-12-19] MEDS: VANCOMYCIN IV 1,500 MG in SODIUM CHLORIDE 0.9% 500ML 500 ML IV SCH ×2 (03:51→11:45)
[2017-12-19] MEDS: LEVOTHYROXINE 50 MCG TAB PO SCH (05:31)
[2017-12-19] MEDS: PIPERACILL/TAZOBAC IV 3.375 GM in DEXTROSE 5% 100ML IV SCH ×2 (06:33→13:18)
[2017-12-19 07:56] VITALS: BP 134/80; PULSE 90; TEMP 36.7; O2SAT 92
[2017-12-19 08:14] VITALS: O2SAT 92
[2017-12-19] MEDS: ATORVASTATIN 40 MG TAB PO SCH (08:59)
[2017-12-19] MEDS: LISINOPRIL 10 MG TAB PO SCH (09:00)
[2017-12-19] MEDS: FERROUS SULFATE 325 MG TAB PO SCH ×2 (09:00→12:04)
[2017-12-19] MEDS: INSULIN ASPART 100 UNITS/ML 3 ML PEN SC SCH ×2 (09:04→12:04)
[2017-12-19] MEDS: INSULIN GLARGINE SOLOSTAR 100 UNITS/ML 3 ML PEN SC SCH (09:06)
[2017-12-19] MEDS ORDERED: DXY100 PO (12:55)
[2017-12-19] MEDS ORDERED: FRRS300 PO (12:55)
[2017-12-19 12:58] VITALS: BP 134/80; PULSE 90; TEMP 36.7; O2SAT 92
--- NOTE | 2017-12-19 13:05 | Discharge Summary ---
Discharge Summary Date of Service Dec 19, 2017. Discharge Summary Admission Date: Dec 15, 2017 at 17:28 Discharge Date: Dec 19, 2017 Discharge Disposition: Home Principal Diagnosis: Sepsis 2/2 RLE cellulitis R plantar fascia blister Iron deficiency anemia Hypothyroidism DMII-uncontrolled Diabetic neuropathy HTN Procedures: None. Vaccinations: None. Consultations: ID-Dr. Monika Wilhelm Pending Studies/Follow-Up: see instructions below. Medication Reconciliation New Medications: Doxycycline Hyclate (Doxycycline Hyclate) 100 Mg Cap 100 MG PO BID for 7 Days, #14 CAP Ferrous Sulfate (Ferrous Sulfate) 325 Mg Tab 325 MG PO TIDM for 30 Days, #90 TAB 1 Refill Continued Medications: Acetaminophen (Tylenol) 500 Mg Tab 1000 MG PO Q6 PRN for Pain, TAB Amitriptyline Hcl (Elavil) 10 Mg Tab 10 MG PO HS, TAB Aspirin (Aspirin Ec) 81 Mg Tab 81 MG PO DAILY Atorvastatin (Lipitor) 40 Mg Tab 40 MG PO DAILY, TAB Dulaglutide (Trulicity) 0.75 Mg/0.5 Ml Inj 0.75 MG SQ WK Ibuprofen Tab (Advil) 200 Mg Tab 400 MG PO Q4 PRN for Pain, TAB Insulin Glargine (Lantus Solostar) 100 Unit/Ml Inj 50 UNITS SQ QPM, PEN Levothyroxine Sodium (Levothyroxine Sodium) 50 Mcg Tab 1 TAB PO DAILY for 90 Days, #90 TAB 3 Refills Lisinopril (Prinivil) 10 Mg Tab 10 MG PO DAILY, TAB Meclizine Hcl (Meclizine Hcl) 12.5 Mg Tab 12.5 MG PO TID PRN for Dizziness or Vertigo Metformin Hcl (Glucophage) 1,000 Mg Tab 1000 MG PO BID, TAB Silver Sulfadiazine (Silvadene) 1 % Cre 1 APPLN TOP BID PRN for for 7 Days, #50 GM Valacyclovir Hcl (Valtrex) 1 Gm Tab 1 GM PO BID PRN for BREAKOUTS, #21 TAB Discontinued Medications: Sulfa/Trimethoprim (Bactrim Ds 800MG/160MG) Tab 1 TAB PO BID for 10 Days, #6 TAB Admission Information HPI (per Admitting provider): The patient is a 52-year-old diabetic male who presents with 1-1/2 weeks of swelling in his right lower extremity. Over the past 4-5 days he has noticed a worsening of pain and warmth in his right lower extremity in addition to the formation of a blister on the plantar side of his foot. He had been worked up for gout and DVT was ruled out initially as outpatient, however, he began looking like a cellulitis picture and was started on ceftriaxone injections in the clinic for 2 days as well as Bactrim as outpatient. He presented with fevers and chills for the last 24 hours and a worsening in his clinical status despite antibiotic therapy. Review of systems reveals discomfort in his right lower extremity shaking chills, fevers, decreased appetite. The patient denies any chest pain, shortness of breath, headache, cough, abdominal pain, urinary symptoms, or other issues at this time. He reports not changing shoes recently. He did get a scratch from moving furniture approximately 5 days ago. The scratches on his lateral right calf and is well healed over with no surrounding erythema or any drainage. Physical Exam (per Admitting): General Appearance: WD/WN, no apparent distress Head: normocephalic, atraumatic Eyes: normal inspection, sclerae normal ENT: hearing grossly normal Neck: trachea midline Respiratory/Chest: lungs clear, normal breath sounds, no respiratory distress, no accessory muscle use Cardiovascular: no edema, no gallop, no JVD, no murmur, normal peripheral pulses, + tachycardia Abdomen/GI: normal bowel sounds, non tender, soft, no organomegaly Back: normal inspection Extremities/Musculoskelatal: + pertinent finding (RLE erythema in patches with increased warmth and area of fluctuance on plantar side of foot surrounding by erythema. Scratch on lat right lower leg-closed, well-healing.) Hospital Course 52-year-old diabetic man presents with 1-1/2 weeks of swelling in his right lower extremity. 5 days prior to arrival he noted a worsening of pain and warmth in this area in addition to the formation of a blister on the plantar side of his foot. He had been worked up for gout and DVT as outpatient which was negative. He was started on treatment for cellulitis with ceftriaxone injections and Bactrim. He failed outpatient therapy as clinical status declined. He presented to the ER with sepsis and was placed on empiric broad- spectrum antibiotics and resuscitated appropriately. General surgery evaluated the foot and after MRI revealed no abscess or osteomyelitis, decided against surgical I&D. Blood cultures were negative. Infectious disease was consulted and recommended continuation of IV therapy for a couple of days as inpatient; he received approximately 5 days of IV therapy. He was transitioned to doxy p.o. on discharge. By day of discharge he was ambulating at baseline, mentating at baseline, tolerating p.o., reporting no symptoms including pain. Physical exam was unremarkable aside from plantar fascia blister and mild but healing erythema and warmth on the dorsum of foot. Abdomen was soft, nontender and nondistended. Lungs were clear to auscultation,heart exam was normal. He was discharged in stable condition with close follow-up with primary care provider. Of note he was found to be anemic in the hospital. Iron studies revealed borderline iron deficiency anemia and he was started on iron supplementation. This will be followed as outpatient. Podiatry follow-up was recommended. Total time spent on discharge = 60 minutes This includes examination of the patient, discharge planning, medication reconciliation, and communication with other providers. [place] [address] Discharge Medical Patient Name: Jian Mckeon Unit Number: [id number] Date of : 1965 Patient Status: Admitted Inpatient Attending Doctor: Monica Becerra DO DI: Medical v5 Discharge Instructions Date of Service Dec 19, 2017. Admission Reason for Admission: Sepsis Due To Cellulitis Discharge Discharge Diagnosis / Problem: Sepsis 2/2 cellulitis Discharge Goals Goal(s): Prevent Disease Progression Activity Recommendations Activity Limitations: per Instructions/Follow-up section . Instructions / Follow-Up Instructions / Follow-Up Please take all medications as instructed on discharge list. Please follow-up with Podiatry within the next few weeks for continued diabetic foot care. Of note, you may need a referral from your primary care physician ( PCP) for this. Please contact [facility] and make a follow-up appointment with Dr. oMnika Wilhelm. The number is [phone]. You were found to have anemia while here in the hospital. This should be discussed further with your PCP on follow-up. You have an appointment with Dr. Wan scheduled for Thursday 12/21 @ 9:35am for follow-up from this hospitalization. It was a pleasure taking care of you! Call if you have any questions or problems. You can reach a [facility] hospitalist on duty at [facility] 24 hours a day by calling [phone]. Take care of yourself. Monica Becerra DO [facility] Hospitalist Current Hospital Diet Patient's current hospital diet: Diabetes Type 2 Diet, AHA Diet (Heart Healthy) Discharge Diet Recommended Diet: AHA Diet (Heart Healthy), Diabetes Type 2 Diet Procedures Procedures Performed: None. Pending Studies Studies pending at discharge: yes List of pending studies: preliminary blood cultures negative at discharge with final reading pending. Laboratory Results Hemoglobin A1c Test 12/15/17 16:07 Range/Units Estimated Average Glucose 143 mg/dl Hemoglobin A1c 6.6 H 4.5-5.6 % Medical Emergencies . Who to Call and When: Medical Emergencies: If at any time you feel your situation is an emergency, please call 911 immediately. . Non-Emergent Contact Non-Emergency issues call your: Primary Care Provider . . "Provider Documentation" section prepared by Monica Becerra. . Additional Copies To [place] Wan D.O.
[2017-12-19 15:56] VITALS: BP 128/71; PULSE 92; TEMP 36.7; O2SAT 92
[2017-12-19] MEDS: ENOXAPARIN 40 MG/0.4 ML SYR SQ SCH (16:34)
[2017-12-26] MEDS ORDERED: DAPT500I IV (11:36)
[2017-12-26] MEDS ORDERED: POTA-74 PO (14:16)
[2017-12-26] MEDS ORDERED: LVNIS40 SQ (14:16)
[2017-12-26] MEDS ORDERED: LSX20 PO (14:16)
== END 2017-12-19 18:30 | disposition home or self-care (01) | DRG 602 ==
LOC: C.EDB 15:32 → C.2T 17:28 → ENRESERV 17:48 → EDBEDREQ 12-16 13:04 → EDBEDREQSVC 12-16 13:13 → EDBEDREQ 12-16 13:13 → ENRESERV 12-16 13:33 → C.MSN 12-16 14:12
PROVIDERS: ADMIT Hospitalist; ATTEND Hospitalist
DX: L03.115 Cellulitis of right lower limb (principal); A41.9 Sepsis, unspecified organism; I10 Essential (primary) hypertension; S90.821A Blister (nonthermal), right foot, initial encounter; E78.5 Hyperlipidemia, unspecified; E03.9 Hypothyroidism, unspecified; D50.9 Iron deficiency anemia, unspecified; E11.40 Type 2 diabetes mellitus with diabetic neuropathy, unspecified; X58.XXXA Exposure to other specified factors, initial encounter; Z79.82 Long term (current) use of aspirin; Z79.4 Long term (current) use of insulin; Z82.49 Family history of ischemic heart disease and other diseases of the circulatory system; Z83.3 Family history of diabetes mellitus

== ENCOUNTER 2017-12-20 20:01 | Inpatient (IN) | payer OTHER ==
[~2017-12-20] VITALS: Ht 172.7 cm; Wt 91.1 kg
[~2017-12-20 20:01] MED LIST changes: +ACET-1256 PO; +AMIT10TA6 PO; +ASPI81TA28 PO; +ATOR-24 PO; +DULA1INJ SQ; +DXY100 PO; +FRRS300 PO; -GLC500 PO; -HMLI SC; +IBUP-103 PO; +INSDGIPEN SQ; +LEVO50TA6 PO; +LISI10TA PO; -LISI5TAB3 PO; +MECL1TAB40 PO; +METF-384 PO; +SILV1CRE73 TOP; -SIMV10TA2 PO; +VALA1TAB31 PO
[2017-12-20] MEDS ORDERED: CEFTRIAXONE SOD INJ 1 GM ADDVIAL IV STA (21:17)
[2017-12-20] MEDS ORDERED: SULFAMETHOXAZOLE/TRIMETHOPRIM DS 800/160MG TAB PO STA (21:17)
[2017-12-20 21:56] LABS: BASO % 0.7 %; BASO ABS # 0.08 K/uL (0-0.2); EOS % 2.3 %; EOS ABS # 0.26 K/uL (0-0.5); HEMATOCRIT 27.9 % (42-52); HEMOGLOBIN 9.2 g/dL (14.0-18.0); IG# 0.08 K/uL (0.00-0.02); LYMPH % 17.3 %; LYMPH ABS # 1.95 K/uL (1.2-3.4); MEAN CELL VOLUME 96.9 fL (80-100); MEAN CORPUSCULAR HEMOGLOBIN 31.9 pg (25-34); MEAN PLATELET VOLUME 8.5 fL (7.4-10.4); MONO % 6.2 %; NEUT % 72.8 %; PLATELET COUNT 520 K/uL (130-400); RED CELL DISTRIBUTION WIDTH SD 43.5 fL (36.4-46.3); WHITE BLOOD COUNT 11.27 K/uL (4.8-10.8)
[2017-12-20 22:08] LABS: CALCIUM 9.2 mg/dl (8.5-10.1); CREATININE 0.79 mg/dl (0.60-1.40); POTASSIUM 3.8 mmol/L (3.5-5.1)
[2017-12-20] MEDS ORDERED: VANCOMYCIN 1GM ED/ASU OMNICELL IV STA (22:42)
--- NOTE | 2017-12-20 23:01 | DIAGNOSTIC IMAGING REPORT ---
R VENOUS DOPP LOWER EXT UNILAT CLINICAL HISTORY: Pt c/o Rt LE pain pain. Cellulitis. TECHNIQUE: Venous Doppler COMPARISON STUDY: 12/12/2017 FINDINGS: Unchanged exam from the prior study. Chronic superficial thrombus within the saphenous vein again likely chronic. All major deep venous structures are unremarkable. No evidence for acute deep venous thrombosis. IMPRESSION: 1. No evidence for deep venous thrombosis. 2. 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 A reactive node within the right groin. 4. No change from the prior exam. The above report was generated using voice recognition software. It may contain grammatical, syntax or spelling errors. Electronically signed by: Bereket Smith M.D. 12/20/2017 11:00 PM Dictated Date/Time: 12/20/2017 10:58 PM
--- NOTE | 2017-12-20 23:11 | EMERGENCY ROOM VISIT NOTE ---
History Report prepared by Ashvin: Erika Lockhart Under the Supervision of: Dr. Louie Xiao M.D. First contact with patient: 20:30 Chief Complaint: LEG PAIN,LEG INJURY Stated Complaint: SWELLING IN LOWER R LEG AND FOOT, HERE YESTERDAY History of Present Illness The patient is a 52 year old male who presents to the Emergency Room with complaints of worsening right leg swelling starting today. The patient states that he was admitted Sunday for sepsis since his whole foot was swollen and bright red. He states that he also had a blister. He reports that he was released yesterday since the swelling was down in his leg. He reports that they started him on Doxycycline. He states that last night he noticed a small fever and took Tylenol which provided relief. He reports that he woke up this morning with the swelling up into his knee. He reports that he is pain free and the redness is down compared to what it was. He notes he has been keeping it elevated. He states that it feels like he is "walking on cushions." Source of History: patient Onset: today Position: leg (right) Quality: other (swelling) Timing: worsening Associated Symptoms: + fevers Note: The patient complains of feeling like he is "walking on cushions." Review of Systems See HPI for pertinent positives & negatives. A total of 10 systems reviewed and were otherwise negative. Past Medical & Surgical Medical Problems: (1) Benign neoplasm of cerebral meninges (2) Cellulitis of right lower extremity (3) Diabetic neuropathy (4) DMII (diabetes mellitus, type 2) (5) HTN (hypertension) (6) Hypothyroidism (7) Microalbuminuria (8) Sepsis due to cellulitis (9) Swelling of right knee joint Family History FH: HTN (hypertension) MOTHER FH: premature coronary heart disease FATHER (58) MOTHER BROTHER (42) FH: type 2 diabetes mellitus BROTHER Social History Smoking Status: Never Smoker Drug Use: none Marital Status: Housing Status: lives with significant other Current/Historical Medications Scheduled Amitriptyline Hcl (Elavil), 10 MG PO HS Aspirin (Aspirin Ec), 81 MG PO DAILY Atorvastatin (Lipitor), 40 MG PO DAILY Doxycycline Hyclate (Doxycycline Hyclate), 100 MG PO BID Dulaglutide (Trulicity), 0.75 MG SQ WK Ferrous Sulfate (Ferrous Sulfate), 325 MG PO TIDM Insulin Glargine (Lantus Solostar), 50 UNITS SQ QPM Levothyroxine Sodium (Levothyroxine Sodium), 1 TAB PO DAILY Lisinopril (Prinivil), 10 MG PO DAILY Metformin Hcl (Glucophage), 1,000 MG PO BID Scheduled PRN Acetaminophen (Tylenol), 1,000 MG PO Q6 PRN for Pain Ibuprofen Tab (Advil), 400 MG PO Q4 PRN for Pain Meclizine Hcl (Meclizine Hcl), 12.5 MG PO TID PRN for Dizziness or Vertigo Silver Sulfadiazine (Silvadene), 1 APPLN TOP BID PRN for Valacyclovir Hcl (Valtrex), 1 GM PO BID PRN for BREAKOUTS Allergies Coded Allergies: No Known Allergies (Unverified , 09/11/13) Physical Exam Vital Signs Date Time Temp Pulse Resp B/P (MAP) Pulse Ox O2 Delivery O2 Flow Rate FiO2 12/20/17 21:52 91 20 153/97 93 Room Air 12/20/17 20:03 37.6 97 20 152/82 93 Room Air Physical Exam GENERAL: Awake, alert, well-appearing, in no acute distress HENT: Normocephalic, atraumatic. Oropharynx unremarkable. EYES: Normal conjunctiva. Sclera non-icteric. NECK: Supple. No nuchal rigidity. FROM. No JVD. RESPIRATORY: Clear to auscultation. CARDIAC: Regular rate, normal rhythm. Extremities warm and well perfused. Pulses equal. ABDOMEN: Soft, non-distended. No tenderness to palpation. No rebound or guarding. No masses. RECTAL: Deferred. MUSCULOSKELETAL: Chest examination reveals no tenderness. The back is symmetrical on inspection without obvious abnormality. There is no CVA tenderness to palpation. No joint edema. LOWER EXTREMITIES: Calves are equal size bilaterally and non-tender. Edema up the right leg. Areas of old cellulitis that appear to be healing well. NEURO: Normal sensorium. No sensory or motor deficits noted. SKIN: No rash or jaundice noted. Medical Decision & Procedures ER Provider Diagnostic Interpretation: Radiology results as stated below per my review and radiologist interpretation: R VENOUS DOPP LOWER EXT UNILAT CLINICAL HISTORY: Pt c/o Rt LE pain pain. Cellulitis. TECHNIQUE: Venous Doppler COMPARISON STUDY: 12/12/2017 FINDINGS: Unchanged exam from the prior study. Chronic superficial thrombus within the saphenous vein again likely chronic. All major deep venous structures are unremarkable. No evidence for acute deep venous thrombosis. IMPRESSION: 1. No evidence for deep venous thrombosis. 2. 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 A reactive node within the right groin. 4. No change from the prior exam. The above report was generated using voice recognition software. It may contain grammatical, syntax or spelling errors. Electronically signed by: Bereket Smith M.D. 12/20/2017 11:00 PM Dictated Date/Time: 12/20/2017 10:58 PM Laboratory Results Labs reviewed by ED physician. Medications Administered Medications (Trade) Dose Ordered Sig/Minal Route Start Time Stop Time Status Last Admin Dose Admin Ceftriaxone Sodium (Rocephin Inj) 1 gm NOW STAT IV 12/20/17 21:17 12/20/17 21:19 DC 12/20/17 21:49 1 GM Trimethoprim/ Sulfamethoxazole (Septra Ds 800/ 160MG Tab) 1 tab NOW STAT PO 12/20/17 21:17 12/20/17 21:19 DC 12/20/17 21:49 1 TAB Vancomycin HCl (Vancomycin 1gm/ 270ml Nss) 1 gm NOW STAT IV 12/20/17 22:42 12/20/17 22:44 DC 12/20/17 23:26 1 GM ED Course 2111: Past medical records reviewed. The patient was evaluated in room C4. A complete history and physical examination was performed. 2116: Ordered Trimethoprim/Sulfamethoxazole 1 tab PO, Rocephin Inj 1 gm IV. 2239: I discussed the patient's case with Dr. Brittany Louis Hospitalist, he has agreed to evaluate the patient for further management and care. 2241: Ordered Vancomycin HCl 1 gm IV. Medical Decision Differential diagnosis: Etiologies such as cellulitis, abscess, MRSA infection, DVT, necrotizing fasciitis, dermatitis, drug eruption, as well as others were entertained. This is a 53-year-old male who presents the emergency department complaining of increasing cellulitis so despite being discharged yesterday. In addition the patient is also running fevers here in the emergency department. Pancultured and Rocephin and vancomycin. His ultrasound does not show any evidence of DVT. I did discuss the case with the hospitalist service who agreed to admit the patient. Patient was in agreement with the treatment plan. Medication Reconcilliation Current Medication List: was personally reviewed by me Blood Pressure Screening Patient's blood pressure: Elevated blood pressure Will be further monitored by the hospitalist. Consults Time Called: 2236 Consulting Physician: Dr. Brittany Louis Hospitalist Returned Call: [phone] I discussed the patient's case with Dr. Brittany Cleary, he has agreed to evaluate the patient for further management and care. Impression Primary Impression: Cellulitis Scribe Attestation The scribe's documentation has been prepared under my direction and personally reviewed by me in its entirety. I confirm that the note above accurately reflects all work, treatment, procedures, and medical decision making performed by me. Departure Information Dispostion Being Evaluated By Hospitalist Referrals India Wan D.O. (PCP) Patient Instructions My [facility] [address] Problem Qualifiers Primary Impression: Cellulitis Site of cellulitis: extremity Site of cellulitis of extremity: lower extremity Laterality: unspecified laterality Qualified Codes: L03.119 - Cellulitis of unspecified part of limb
--- NOTE | 2017-12-20 23:25 | History and Physical ---
History & Physical Date & Time of Service: Dec 20, 2017 at 23:24 Chief Complaint: Swelling In Lower R Leg And Foot, Here Yesterday Primary Care Physician: India Wan D.O. History of Present Illness 52 year old M who had recent admission and discharge (12/12/17 to 12/19/17) at who returns to the emergency room Chart review as per previous discharge summary of the hospital course 52-year-old diabetic man presents with 1-1/2 weeks of swelling in his right lower extremity. 5 days prior to arrival he noted a worsening of pain and warmth in this area in addition to the formation of a blister on the plantar side of his foot. He had been worked up for gout and DVT as outpatient which was negative. He was started on treatment for cellulitis with ceftriaxone injections and Bactrim. He failed outpatient therapy as clinical status declined. He presented to the ER with sepsis and was placed on empiric broad- spectrum antibiotics and resuscitated appropriately. General surgery evaluated the foot and after MRI revealed no abscess or osteomyelitis, decided against surgical I&D. Blood cultures were negative. Infectious disease was consulted and recommended continuation of IV therapy for a couple of days as inpatient; he received approximately 5 days of IV therapy. He was transitioned to doxy p.o. on discharge. By day of discharge he was ambulating at baseline, mentating at baseline, tolerating p.o., reporting no symptoms including pain. Physical exam was unremarkable aside from plantar fascia blister and mild but healing erythema and warmth on the dorsum of foot. Abdomen was soft, nontender and nondistended. Lungs were clear to auscultation,heart exam was normal. He was discharged in stable condition with close follow-up with primary care provider. Of note he was found to be anemic in the hospital. Iron studies revealed borderline iron deficiency anemia and he was started on iron supplementation. This will be followed as outpatient. Podiatry follow-up was recommended. Patient reports that on 12/20/17 he had T max of 99.9F which he describes as a fever and took 2 Tylenol and a tablet of the oral doxycycline He woke up in the AM of 12/21/17 and noticed right knee swelling that became progressively worse throughout the day. At home he had T max of 99.8F and took his morning dose of doxycycline Patient returned to the ED at night on 12/21/17 at [facility] with concerns that with recent elevated temperature and right knee swelling that the right lower extremity worse getting worse. 99.7F on arrival In the ED, the emergency room physician ordered 1 tab of Bactrim, 1 gram IV Ceftriaxone, and 1 gram of IV Vancomycin and patient had ultrasound of right lower extremity Past Medical/Surgical History Medical Problems: (1) Benign neoplasm of cerebral meninges (2) Cellulitis of foot, right (3) Cellulitis of right leg (4) Diabetic neuropathy (5) DMII (diabetes mellitus, type 2) (6) HTN (hypertension) (7) Hypothyroidism (8) Microalbuminuria (9) Sepsis due to cellulitis (10) Swelling of right knee joint Family History FH: HTN (hypertension) MOTHER FH: premature coronary heart disease FATHER (58) MOTHER BROTHER (42) FH: type 2 diabetes mellitus BROTHER Social History Smoking Status: Never Smoker Drug Use: none Marital Status: Housing status: lives with significant other Immunizations History of Influenza Vaccine: Yes Influenza Vaccine Date: Sep 28, 2017 History of Tetanus Vaccine?: Yes Tetanus Immunization Date: Nov 16, 2008 History of Pneumococcal: Yes Pneumococcal Date: Nov 16, 2008 History of Hepatitis B Vaccine: No Allergies Coded Allergies: No Known Allergies (Unverified , 09/11/13) Home Medications Scheduled Amitriptyline Hcl (Elavil), 10 MG PO HS Aspirin (Aspirin Ec), 81 MG PO DAILY Atorvastatin (Lipitor), 40 MG PO DAILY Doxycycline Hyclate (Doxycycline Hyclate), 100 MG PO BID Dulaglutide (Trulicity), 0.75 MG SQ WK Ferrous Sulfate (Ferrous Sulfate), 325 MG PO TIDM Insulin Glargine (Lantus Solostar), 50 UNITS SQ QPM Levothyroxine Sodium (Levothyroxine Sodium), 1 TAB PO DAILY Lisinopril (Prinivil), 10 MG PO DAILY Metformin Hcl (Glucophage), 1,000 MG PO BID Scheduled PRN Acetaminophen (Tylenol), 1,000 MG PO Q6 PRN for Pain Ibuprofen Tab (Advil), 400 MG PO Q4 PRN for Pain Meclizine Hcl (Meclizine Hcl), 12.5 MG PO TID PRN for Dizziness or Vertigo Silver Sulfadiazine (Silvadene), 1 APPLN TOP BID PRN for Valacyclovir Hcl (Valtrex), 1 GM PO BID PRN for BREAKOUTS Review of Systems Constitutional: + problem reported (T max at home 99.9 on 12/20/17 and 99.8 on ), No chills, No sweats Eyes: No worsening of vision, No eye pain ENT: No hearing loss, No unusual epistaxis, No nasal symptoms, No sore throat, No trouble swallowing Respiratory: No cough, No sputum, No wheezing, No shortness of breath Cardiovascular: No chest pain Abdomen: No pain, No nausea, No vomiting, No diarrhea, No constipation Musculoskeletal: + problem reported (right knee swelling, erythema of lower extremity) Genitourinary - Male: No hematuria Neurologic: + problem reported (history of neuropathy), No weakness Endocrine: No fatigue Hematologic / Lymphatic: No abnormal bleeding/bruising Integumentary: No rash Physical Exam Vital Signs Date Time Temp Pulse Resp B/P (MAP) Pulse Ox O2 Delivery O2 Flow Rate FiO2 12/20/17 21:52 91 20 153/97 93 Room Air 12/20/17 20:03 37.6 97 20 152/82 93 Room Air General Appearance: no apparent distress Head: normocephalic, atraumatic Eyes: normal inspection, EOMI, sclerae normal ENT: normal ENT inspection, hearing grossly normal, pharynx normal Neck: supple, no adenopathy, no JVD, trachea midline Respiratory/Chest: chest non-tender, lungs clear, normal breath sounds, no respiratory distress, no accessory muscle use Cardiovascular: regular rate, rhythm, no JVD, no murmur, normal peripheral pulses Abdomen/GI: normal bowel sounds, non tender, soft, no organomegaly, no pulsatile mass Back: normal inspection, no CVA tenderness, no muscle spasm, normal range of motion Extremities/Musculoskelatal: + pertinent finding (erythema of right foot to middle tibia, left calf swelling, right knee swollen but not erythematous) Neurologic/Psych: no motor/sensory deficits, alert, normal mood/affect, oriented x 3 Skin: + pertinent finding (erythema of right foot to middle tibia) Diagnostics Laboratory Results Results Past 24 Hours Test 12/20/17 21:32 Range/Units White Blood Count 11.27 4.8-10.8 K/uL Red Blood Count 2.88 4.7-6.1 M/uL Hemoglobin 9.2 14.0-18.0 g/dL Hematocrit 27.9 42-52 % Mean Corpuscular Volume 96.9 80-100 fL Mean Corpuscular Hemoglobin 31.9 25-34 pg Mean Corpuscular Hemoglobin Concent 33.0 32-36 g/dl Platelet Count 520 130-400 K/uL Mean Platelet Volume 8.5 7.4-10.4 fL Neutrophils (%) (Auto) 72.8 % Lymphocytes (%) (Auto) 17.3 % Monocytes (%) (Auto) 6.2 % Eosinophils (%) (Auto) 2.3 % Basophils (%) (Auto) 0.7 % Neutrophils # (Auto) 8.20 1.4-6.5 K/uL Lymphocytes # (Auto) 1.95 1.2-3.4 K/uL Monocytes # (Auto) 0.70 0.11-0.59 K/uL Eosinophils # (Auto) 0.26 0-0.5 K/uL Basophils # (Auto) 0.08 0-0.2 K/uL RDW Standard Deviation 43.5 36.4-46.3 fL RDW Coefficient of Variation 13.0 11.5-14.5 % Immature Granulocyte % (Auto) 0.7 % Immature Granulocyte # (Auto) 0.08 0.00-0.02 K/uL Sodium Level 138 136-145 mmol/L Potassium Level 3.8 3.5-5.1 mmol/L Chloride Level 102 98-107 mmol/L Carbon Dioxide Level 29 21-32 mmol/L Anion Gap 7.0 3-11 mmol/L Blood Urea Nitrogen 11 7-18 mg/dl Creatinine 0.79 0.60-1.40 mg/dl Est Creatinine Clear Calc Drug Dose 121.8 ml/min Estimated GFR () 119.7 Estimated GFR (Non- 103.2 BUN/Creatinine Ratio 13.3 10-20 Random Glucose 140 70-99 mg/dl Calcium Level 9.2 8.5-10.1 mg/dl Microbiology Results 12/20/17 Blood Culture, Received Pending 12/20/17 Blood Culture, Received Pending Impression Assessment and Plan This is a 52 year old M recently admitted for right lower extremity cellulitis and returns to the ED with new right knee swelling and elevated body temperature that has been under 100 F Right lower extremity cellulitis with erythema of foot to middle tibia area, right calf swelling -Patient had previous MRI imaging and X ray imaging of right lower extremity on 12/15/17 from previous admission which did not reveal abscess of osteomyelitis -MRI of right lower extremity ordered for this admission -right lower extremity ultrasound: 1. No evidence for deep venous thrombosis. 2. 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 A reactive node within the right groin. 4. No change from the prior exam. (12/12/17) Right knee swelling -have requested Dr. Albarado of [facility] to assess for possible right knee arthrocentesis to rule out septic knee -NPO after midnight expect ice/sips/meds Antibiotics for the right lower extremity -In the ED, the emergency room physician ordered 1 tab of Bactrim, 1 gram IV Ceftriaxone, and 1 gram of IV Vancomycin and patient had ultrasound of right lower extremity -at this time the right knee does not appear to be erythematous and it is unclear whether knee swelling is from sterile effusion vs effusion from infusion ; will hold off further antibiotics until right knee arthrocentesis is done History of diabetes and right lower extremity blister -Wound care consult whether right foot blister needs debridement -Hold home insulin for now as patient is NPO, hold oral glycemic medication of metformin for now -start sliding scale insulin with fingerstick glucose -continue home medication for diabetic neuropathy Hypothyroidism -continue home dose levothyroxine HTN -continue home dose lisinopril DVT ppx: SCDs, hold home dose aspirin until after right knee arthrocentesis Full Code Resuscitation Status VTE Prophylaxis Will order VTE Prophylaxis: Yes
[2017-12-21 00:35] VITALS: BP 143/83; PULSE 101; TEMP 36.7; Ht 172.7 cm; Wt 91.1 kg
[2017-12-21] MEDS ORDERED: GLUCAGON FOR INJ 1 MG VIAL SQ PRN (00:45)
[2017-12-21] MEDS ORDERED: DEXTROSE 50% 50 ML SYR IV PRN (00:45)
[2017-12-21] MEDS ORDERED: GLUCOSE 10 TABS/TUBE PO PRN (00:45)
[2017-12-21] MEDS ORDERED: GLUCOSE 40% GEL 15 GM TUBE PO PRN (00:45)
[2017-12-21] MEDS ORDERED: SODIUM CHLORIDE 0.9% 1000ML 1,000 ML IV SCH (01:15)
[2017-12-21] MEDS ORDERED: NURSING VERBAL MED ORDER ONE (01:30)
[2017-12-21] MEDS ORDERED: IV FLUIDS COMPLETED PRN (03:15)
[2017-12-21] MEDS ORDERED: INSULIN ASPART 100 UNITS/ML 3 ML PEN SC SCH ×2 (06:00→07:00)
[2017-12-21] MEDS: LEVOTHYROXINE 50 MCG TAB PO SCH (06:09)
[2017-12-21 06:26] LABS: BASO % 0.4 %; BASO ABS # 0.04 K/uL (0-0.2); EOS % 2.2 %; EOS ABS # 0.21 K/uL (0-0.5); HEMATOCRIT 26.4 % (42-52); HEMOGLOBIN 8.7 g/dL (14.0-18.0); IG# 0.08 K/uL (0.00-0.02); LYMPH % 16.6 %; LYMPH ABS # 1.56 K/uL (1.2-3.4); MEAN CORPUSCULAR HEMOGLOBIN 31.6 pg (25-34); MEAN PLATELET VOLUME 7.9 fL (7.4-10.4); MONO % 7.6 %; MONO ABS # 0.71 K/uL (0.11-0.59); NEUT % 72.3 %; PLATELET COUNT 404 K/uL (130-400); RED CELL DISTRIBUTION WIDTH CV 13.3 % (11.5-14.5); RED CELL DISTRIBUTION WIDTH SD 43.9 fL (36.4-46.3)
[2017-12-21 07:10] LABS: ALBUMIN 2.5 gm/dl (3.4-5.0); CREATININE 0.77 mg/dl (0.60-1.40); POTASSIUM 3.8 mmol/L (3.5-5.1)
[2017-12-21 07:11] VITALS: BP 143/83; PULSE 85; TEMP 37; O2SAT 90
[2017-12-21 07:14] LABS: TOTAL PROTEIN 7.4 gm/dl (6.4-8.2)
[2017-12-21] MEDS ORDERED: VANCOMYCIN CONSULT ACTIVE PRN (07:37)
[2017-12-21] MEDS: ATORVASTATIN 40 MG TAB PO SCH (07:50)
[2017-12-21] MEDS: LISINOPRIL 10 MG TAB PO SCH (07:50)
[2017-12-21] MEDS ORDERED: VANCOMYCIN IV 1,750 MG in SODIUM CHLORIDE 0.9% 500ML 500 ML IV ONE (08:45)
--- NOTE | 2017-12-21 11:07 | Progress Note ---
Progress Note Date of Service Dec 21, 2017. Progress Note ID Consult Dictated #[id number] A/P: 1. Right foot cellulitis -Continue vanco, follow cultures -Would suggest course of IV vanco 14 days -Wound care eval pending, if fluid in blister, would send for culture -Will need weekly cbc, cmp, vanco trough 15-20 -Has ID appt on -thank you
--- NOTE | 2017-12-21 11:21 | INFECT. DISEASE CONSULTATION ---
DATE OF CONSULTATION: 12/21/2017 HISTORY OF PRESENT ILLNESS: This is a 52-year-old gentleman who was discharged from the hospital on Sunday for left lower extremity cellulitis on doxycycline. He had been on Rocephin and Bactrim by his primary care prior to his initial admission and did not feel he was having positive response and was subsequently admitted to the hospital. He did receive vancomycin and Zosyn for a period of 4-5 days with improvement and he was subsequently discharged on doxycycline. No wound cultures were obtained; however, his blood cultures were negative at that admission. He did have initially intermittent fevers which improved. He did have an MRI on his last admission which did not show any evidence for abscess and/or osteomyelitis. He was evaluated by surgery and felt to be a nonoperative candidate. He had an initial leukocytosis which improved at the time of discharge. He went home on Sunday and had a fever of 99 degrees. He slept throughout the day woke up from a nap and noticed right knee pain and swelling and also had a fever of 99 and represented to the Emergency Room yesterday evening. He was found to have a temperature of 37.6 in the ER and he was subsequently admitted. He was started on vancomycin and Rocephin. His white blood cell count yesterday was 11, is down to 9.4 today. A sed rate is elevated. Repeat blood cultures are pending. An ultrasound of the leg was done and is unremarkable. He states that he is due to have a wound care evaluation for a blister that has been at the bottom of his foot. He denies any opening or drainage spontaneously at home. He denies any pain. He states his right knee swelling is almost completely resolved, but he does remain with some erythema and warmth of his right lower extremity. He is tolerating antibiotics well and his remaining review of systems is reviewed and unremarkable. PAST MEDICAL HISTORY: History of benign neoplasm of the meninges, foot cellulitis, diabetic neuropathy, type 2 diabetes, hypertension, hypothyroidism. FAMILY HISTORY: Noncontributory. SOCIAL HISTORY: Negative for tobacco use, alcohol use or drug use. ALLERGIES: He has no known drug allergies. CURRENT MEDICATIONS: Elavil, vancomycin, Lipitor, lisinopril, Synthroid, insulin, 1 time dose of Rocephin in the ER. PHYSICAL EXAMINATION: VITAL SIGNS: He is afebrile, pulse 85, respiratory rate 16, blood pressure is 143/83 and oxygen saturation is 90-95% on room air. GENERAL: He is awake, alert and oriented x3. He is in no acute distress. HEENT: Mucous membranes are moist. Extraocular muscles are intact. HEART: Regular. LUNGS: Clear. ABDOMEN: Soft. EXTREMITIES: There is trace right foot edema. There is still erythema and warmth to the mid calf. This is essentially unchanged, but certainly no worse than his appearance at discharge. Blister remains on the dorsal aspect of his foot. There is no tenderness or drainage. LABORATORY STUDIES: CBC today reveals a white blood cell count of 9.4, hemoglobin 8.7, platelets 404, sed rate 63. Chemistry panel reveals a sodium of 139, potassium 3.8, chloride 105, bicarbonate 27, BUN 9, creatinine 0.7. CRP is 4.5, glucose is 96. Blood cultures are negative. IMAGING: As above. ASSESSMENT AND PLAN: Cellulitis of the foot. He will remain on vancomycin. Currently, blood cultures are pending. He may ultimately require a course of IV antibiotics with vancomycin post-discharge from the hospital pending on the results of wound care findings as well as blood cultures. He does have an appointment scheduled for Sunday with infectious diseases. Certainly, he is instructed to keep that appointment. Thank you for this consultation.
--- NOTE | 2017-12-21 11:44 | Progress Note ---
Medicine Progress Note Date & Time of Visit: Dec 21, 2017 at 11:32. Subjective 52-year-old diabetic male recently admitted with new right knee swelling. Denies any pain, fevers, chills. Objective Last 8 Hrs Date Time Temp Pulse Resp B/P (MAP) Pulse Ox O2 Delivery O2 Flow Rate FiO2 12/21/17 07:53 Room Air 12/21/17 07:11 37.0 85 16 143/83 (103) 90 Room Air Physical Exam: GEN: WNWD, in no acute distress, alert and appropriate HEENT: NC/AT, normal sclerae CARDIO: reg rate, S1/2 heard without m/g/r LUNGS: CTA bilaterally, no crackles, rales or wheezes, good diaphragmatic excursion EXTREMITY: RP and DP palpable 2+ bilat, no edema, extremities are warm and well- perfused RLE: no knee effusion or erythema, normal ROM, able to weight bear without pain, erythema is improved in lower R ankle and foot area. Slight swelling expected and present, plantar fascial blister still present and stable. NEURO: CN 2-12 grossly intact MUSC: 5/5 strength throughout, no focal deficits SKIN: warm and dry and as above. Laboratory Results: 12/21/17 06:15 Red Blood Count 2.75, Mean Corpuscular Volume 96.0, Mean Corpuscular Hemoglobin 31.6, Mean Corpuscular Hemoglobin Concent 33.0, Mean Platelet Volume 7.9, Neutrophils (%) (Auto) 72.3, Lymphocytes (%) (Auto) 16.6, Monocytes (%) (Auto) 7.6, Eosinophils (%) (Auto) 2.2, Basophils (%) (Auto) 0.4, Neutrophils # (Auto) 6.80, Lymphocytes # (Auto) 1.56, Monocytes # (Auto) 0.71, Eosinophils # (Auto) 0.21, Basophils # (Auto) 0.04 12/21/17 06:15 Test 12/21/17 06:15 White Blood Count 9.40 K/uL (4.8-10.8) Red Blood Count 2.75 M/uL (4.7-6.1) Hemoglobin 8.7 g/dL (14.0-18.0) Hematocrit 26.4 % (42-52) Mean Corpuscular Volume 96.0 fL (80-100) Mean Corpuscular Hemoglobin 31.6 pg (25-34) Mean Corpuscular Hemoglobin Concent 33.0 g/dl (32-36) Platelet Count 404 K/uL (130-400) Mean Platelet Volume 7.9 fL (7.4-10.4) Neutrophils (%) (Auto) 72.3 % Lymphocytes (%) (Auto) 16.6 % Monocytes (%) (Auto) 7.6 % Eosinophils (%) (Auto) 2.2 % Basophils (%) (Auto) 0.4 % Neutrophils # (Auto) 6.80 K/uL (1.4-6.5) Lymphocytes # (Auto) 1.56 K/uL (1.2-3.4) Monocytes # (Auto) 0.71 K/uL (0.11-0.59) Eosinophils # (Auto) 0.21 K/uL (0-0.5) Basophils # (Auto) 0.04 K/uL (0-0.2) RDW Standard Deviation 43.9 fL (36.4-46.3) RDW Coefficient of Variation 13.3 % (11.5-14.5) Immature Granulocyte % (Auto) 0.9 % Immature Granulocyte # (Auto) 0.08 K/uL (0.00-0.02) Poikilocytosis PRESENT Erythrocyte Sedimentation Rate 63 mm/hr (0-14) Anion Gap 7.0 mmol/L (3-11) Est Creatinine Clear Calc Drug Dose 125.0 ml/min Estimated GFR () 120.9 Estimated GFR (Non- 104.3 BUN/Creatinine Ratio 11.1 (10-20) Calcium Level 9.0 mg/dl (8.5-10.1) Total Bilirubin 0.4 mg/dl (0.2-1) Aspartate Amino Transf (AST/SGOT) 30 U/L (15-37) Alanine Aminotransferase (ALT/SGPT) 60 U/L (12-78) Alkaline Phosphatase 95 U/L (45-117) C-Reactive Protein 4.50 mg/dl (0-0.29) Total Protein 7.4 gm/dl (6.4-8.2) Albumin 2.5 gm/dl (3.4-5.0) Globulin 4.9 gm/dl (2.5-4.0) Albumin/Globulin Ratio 0.5 (0.9-2) Date/Time Source Procedure Growth Status 12/20/17 21:40 Blood Blood Culture Pending Received Last 24 Hours Test 12/20/17 21:32 12/21/17 06:15 White Blood Count 11.27 K/uL 9.40 K/uL Red Blood Count 2.88 M/uL 2.75 M/uL Hemoglobin 9.2 g/dL 8.7 g/dL Hematocrit 27.9 % 26.4 % Mean Corpuscular Volume 96.9 fL 96.0 fL Mean Corpuscular Hemoglobin 31.9 pg 31.6 pg Mean Corpuscular Hemoglobin Concent 33.0 g/dl 33.0 g/dl Platelet Count 520 K/uL 404 K/uL Mean Platelet Volume 8.5 fL 7.9 fL Neutrophils (%) (Auto) 72.8 % 72.3 % Lymphocytes (%) (Auto) 17.3 % 16.6 % Monocytes (%) (Auto) 6.2 % 7.6 % Eosinophils (%) (Auto) 2.3 % 2.2 % Basophils (%) (Auto) 0.7 % 0.4 % Neutrophils # (Auto) 8.20 K/uL 6.80 K/uL Lymphocytes # (Auto) 1.95 K/uL 1.56 K/uL Monocytes # (Auto) 0.70 K/uL 0.71 K/uL Eosinophils # (Auto) 0.26 K/uL 0.21 K/uL Basophils # (Auto) 0.08 K/uL 0.04 K/uL RDW Standard Deviation 43.5 fL 43.9 fL RDW Coefficient of Variation 13.0 % 13.3 % Immature Granulocyte % (Auto) 0.7 % 0.9 % Immature Granulocyte # (Auto) 0.08 K/uL 0.08 K/uL Sodium Level 138 mmol/L 139 mmol/L Potassium Level 3.8 mmol/L 3.8 mmol/L Chloride Level 102 mmol/L 105 mmol/L Carbon Dioxide Level 29 mmol/L 27 mmol/L Anion Gap 7.0 mmol/L 7.0 mmol/L Blood Urea Nitrogen 11 mg/dl 9 mg/dl Creatinine 0.79 mg/dl 0.77 mg/dl Est Creatinine Clear Calc Drug Dose 121.8 ml/min 125.0 ml/min Estimated GFR () 119.7 120.9 Estimated GFR (Non- 103.2 104.3 BUN/Creatinine Ratio 13.3 11.1 Random Glucose 140 mg/dl 96 mg/dl Calcium Level 9.2 mg/dl 9.0 mg/dl Poikilocytosis PRESENT Erythrocyte Sedimentation Rate 63 mm/hr Total Bilirubin 0.4 mg/dl Aspartate Amino Transf (AST/SGOT) 30 U/L Alanine Aminotransferase (ALT/SGPT) 60 U/L Alkaline Phosphatase 95 U/L C-Reactive Protein 4.50 mg/dl Total Protein 7.4 gm/dl Albumin 2.5 gm/dl Globulin 4.9 gm/dl Albumin/Globulin Ratio 0.5 Date/Time Source Procedure Growth Status 12/20/17 21:40 Blood Blood Culture Pending Received 12/20/17 21:32 Blood Blood Culture Pending Received Assessment & Plan 52-year-old diabetic male recently admitted with new right knee swelling 1. Right lower extremity cellulitis-he was discharged on doxycycline p.o. after IV Vanco and Zosyn as an inpatient the cellulitis appears to be improved from discharge. The patient does not admit to any fevers higher than 100F at home. He is clinically well appearing. Infectious disease was reconsulted and recommended IV vancomycin for 2 weeks. When I consented him, he preferred to stay in the hospital with IV antibiotics for a couple of days prior to going toward the the PICC will continue to monitor as inpatient. Will engage with case management for approval of IV antibiotics at home 2. Right knee swelling-likely a result of the healing process. Right on the knee. There is no evidence of erythema or swelling of the knee on exam. No effusion is present. Orthopedics was consulted and Dr. Albarado is to see the patient later this afternoon. 3. Right plantar fascia blister-or so to see today, wound care consulted. 4. Diabetes type 2-currently n.p.o. however we will let the patient eat now. Will add Lantus 15 units twice daily and continue insulin sliding scale with additional carb coverage. 5. Hypothyroidism-continue home dose levothyroxine 6. Hypertension-controlled, continue home regimen including lisinopril. 7. Diabetic neuropathy-continue Elavil per home regimen 8. Iron deficiency-continue iron supplementation and follow-up with outpatient PCP. DVT prophylaxis: Lovenox Full code Disposition-[facility], patient is stable for discharge however, would like to to continue on IV antibiotics in the hospital to see how things progress. Monica Becerra DO [facility] hospitalist DVT ppx: SCDs, hold home dose aspirin until after right knee arthrocentesis Full Code Consultants: Bernice-Dr. Albarado ID-Dr. [email or web address] Current Inpatient Medications: Current Inpatient Medications Medications (Trade) Dose Ordered Sig/Minal Route Start Time Stop Time Status Last Admin Dose Admin Glucose (Glucose 40% Gel) 15-30 GRAMS 15 GRAMS... UD PRN PO 12/21/17 00:45 01/20/18 00:44 Glucose (Glucose Chew Tab) 4-8 Tablets 4 Tabl... UD PRN PO 12/21/17 00:45 01/20/18 00:44 Dextrose (Dextrose 50% 50ML Syringe) 25-50ML OF 50% DW IV FOR... UD PRN IV 12/21/17 00:45 01/20/18 00:44 Glucagon (Glucagon Inj) 1 mg UD PRN SQ 12/21/17 00:45 01/20/18 00:44 Amitriptyline HCl (Elavil Tab) 10 mg HS PO 12/21/17 21:00 01/20/18 20:59 Atorvastatin Calcium (Lipitor Tab) 40 mg DAILY PO 12/21/17 09:00 01/20/18 08:59 12/21/17 07:50 40 MG Levothyroxine Sodium (Synthroid Tab) 50 mcg DAILYBB PO 12/21/17 06:00 01/20/18 06:59 12/21/17 06:09 50 MCG Lisinopril (Zestril Tab) 10 mg DAILY PO 12/21/17 09:00 01/20/18 08:59 12/21/17 07:50 10 MG Sodium Chloride 1,000 ml @ 75 mls/hr [id number] IV 12/21/17 01:15 01/20/18 01:14 12/21/17 01:46 75 MLS/HR Insulin Aspart (novoLOG ASPART) SLIDING SCALE If C... Q6 SC 12/21/17 06:00 01/20/18 05:59 Miscellaneous (Iv Fluids Completed) 1 ea PRN PRN N/A 12/21/17 03:15 12/21/18 03:14 Miscellaneous Information (Consult) 1 ea UD PRN N/A 12/21/17 07:37 01/20/18 07:36 Vancomycin HCl 1500 mg/Sodium Chloride 530 ml @ 200 mls/hr Q8H IV 12/21/17 18:00 12/31/17 08:59
--- NOTE | 2017-12-21 12:45 | Pharmacy Progress Note ---
Pharmacy Abx Initial Consult Date of Service Dec 21, 2017. Pharmacy Dosing Scope Date of Consult: 12/21/17 Consultation requested by: Dr. Becerra Pharmacy is consulted to initiate Vancomycin IV dosing therapy, order appropriate labs and adjust drug dose/frequency. Objective Height (Feet): 5 Height (Inches): 8.00 Weight (Kilograms): 91.100 Vital Signs (Past 12Hrs) Vital Signs Past 12 Hours Date Time Temp Pulse Resp B/P (MAP) Pulse Ox O2 Delivery O2 Flow Rate FiO2 12/21/17 07:53 Room Air 12/21/17 07:11 37.0 85 16 143/83 (103) 90 Room Air Lab Results (24Hrs) Laboratory Tests (24 Hours) Test 12/21/17 06:15 C-Reactive Protein 4.50 mg/dl (0-0.29) H Erythrocyte Sedimentation Rate 63 mm/hr (0-14) H White Blood Count 9.40 K/uL (4.8-10.8) Red Blood Count 2.75 M/uL (4.7-6.1) L Hemoglobin 8.7 g/dL (14.0-18.0) L Hematocrit 26.4 % (42-52) L Mean Corpuscular Volume 96.0 fL (80-100) Mean Corpuscular Hemoglobin 31.6 pg (25-34) Mean Corpuscular Hemoglobin Concent 33.0 g/dl (32-36) Platelet Count 404 K/uL (130-400) H Mean Platelet Volume 7.9 fL (7.4-10.4) Neutrophils (%) (Auto) 72.3 % Lymphocytes (%) (Auto) 16.6 % Monocytes (%) (Auto) 7.6 % Eosinophils (%) (Auto) 2.2 % Basophils (%) (Auto) 0.4 % Neutrophils # (Auto) 6.80 K/uL (1.4-6.5) H Lymphocytes # (Auto) 1.56 K/uL (1.2-3.4) Monocytes # (Auto) 0.71 K/uL (0.11-0.59) H Eosinophils # (Auto) 0.21 K/uL (0-0.5) Basophils # (Auto) 0.04 K/uL (0-0.2) Micro Results Date/Time Source Procedure Growth Status 12/20/17 21:40 Blood Blood Culture Pending Received 12/20/17 21:32 Blood Blood Culture Pending Received Risk Factors for Resistance * Hospitalization for 48 hours or more within the past 90 days; admitted 12/15- for sepsis secondary to RLE cellulitis * Antimicrobial use within the last 90 days; zosyn + vanco IV while admitted, then discharged on doxycycline Assessment & Plan Assessment 52 year old male admitted for recurrent RLE cellulitis, r/o septic knee. * Patient given ceftriaxone 1g IV + Bactrim PO in the ER * Recent admission and antibiotic use (see above) Plan Empiric Vancomycin IV for treatment of RLE cellulitis Vancomycin IV * Vanc 1000 mg IV given in ED 12/20 @4950 * Modified loading dose: 1750 mg (18.5 mg/kg) * Maintenance dose: 1500 mg IV (16 mg/kg) every 8 hours * this dose produced a therapeutic trough on previous admission * Goal trough level for recurrent cellulitis : 15 to 20 mcg/mL * Trough level ordered for 12/23/17 Pharmacy will continue to follow and will adjust dose/frequency as necessary. Thank you.
[2017-12-21] MEDS: INSULIN ASPART 100 UNITS/ML 3 ML PEN SC SCH ×3 (13:03→20:35)
[2017-12-21] MEDS: FERROUS SULFATE 325 MG TAB PO SCH ×2 (13:04→18:12)
[2017-12-21 15:15] VITALS: BP 143/81; PULSE 87; TEMP 36.9; O2SAT 92
--- NOTE | 2017-12-21 16:26 | DIAGNOSTIC IMAGING REPORT ---
R KNEE 4 OR MORE VIEWS CLINICAL HISTORY: 52 years-old Male presenting with right knee swelling. TECHNIQUE: Frontal, sunrise, tunnel, and lateral views of the right knee were obtained. COMPARISON: None. FINDINGS: Joint space preserved. Minimal osteophytosis may be present in the lateral compartment. No advanced degenerative change. Small knee joint effusion. No acute fracture or malalignment. IMPRESSION: 1. Small knee joint effusion. 2. No acute osseous injury. 3. Mild degenerative changes of the lateral compartment suggested. Electronically signed by: Les Marie M.D. 12/21/2017 4:25 PM Dictated Date/Time: 12/21/2017 4:24 PM
[2017-12-21] MEDS: VANCOMYCIN IV 1,500 MG in SODIUM CHLORIDE 0.9% 500ML 500 ML IV SCH (18:12)
--- NOTE | 2017-12-21 19:43 | ORTHOPEDIC CONSULTATION ---
DATE OF CONSULTATION: 12/21/2017 REASON FOR CONSULTATION: This is a 52-year-old gentleman seen at the request of Dr. Becerra, Dr. Marinelli and Dr. India Wan regarding possibility of right knee effusion and recurrent right lower extremity pain, swelling and cellulitis. HISTORY OF PRESENT ILLNESS: This 52-year-old gentleman with a 10-year history of insulin requiring diabetes mellitus had 1-2 weeks of swelling in his right lower extremity Five days prior to arrival, he noted a worsening pain and warmth in the right lower extremity with associated swelling. He also noted spontaneous formation of a blister on the plantar aspect of his right foot. He had been examined and evaluated for possibility of gout and DVT as an outpatient. These studies were negative. He was started on empiric treatment for cellulitis with ceftriaxone injections and Bactrim. He failed outpatient therapy and his clinical status declined with worsening pain, redness and swelling of the right lower extremity. He presented to the Emergency Department with sepsis and was placed on broad spectrum antibiotics and admitted to the hospital. General surgery consultation was performed of the foot after MRI revealed no abscess or osteomyelitis. They decided against surgical I&D. Blood cultures were noted to be negative. Infectious disease was consulted and recommended continuation of IV therapy for couple days as an inpatient. He received 5 days of IV therapy and showed improvement. He was transitioned to doxycycline for oral treatment upon discharge. The day of discharge he was ambulating at baseline with no mental status changes and tolerating p.o. He reported no symptoms of pain and no significant swelling of the limb. He was then discharged home. He had the continued plantar blister on the right foot without any discharge or drainage. He had an MRI which indicated small fluid collection; however, did not appear to be significant at the time of discharge. He had some mild erythema and warmth to the dorsum of the foot. No other significant findings and he was discharged home. Upon discharge, the patient noted that on 12/20/2017, he had a temperature of 99.9 Fahrenheit due to Tylenol and took his oral doxycycline. He woke up in the morning of 12/21/2017 and noticed right knee and lower extremity swelling which worsened throughout the day. He took his morning dose of doxycycline and returned to the Emergency Department the evening of 12/21/2017 with worsening redness and swelling of the right lower extremity which then included a proximal migration to what the patient reported is right knee. He was then admitted to the hospital. Orthopedics was then consulted. After discussion with the patient today, the patient noted that he has had continued swelling of the right lower extremity, it came from distal to proximal and upon examination, the patient had no significant complaints of knee pain today. States that his knee symptoms had improved after he was placed on IV antibiotics last evening. Continued to have concerns over his plantar foot blister and ankle swelling and redness. The patient denies any previous injury to the right lower extremity. No excessive walking, running, jumping or pounding. He has had a history of neuropathy for at least the past 8 years and has been diagnosed with diabetes mellitus type 2 for 10 years. Currently, the patient does not feel feverish. PAST MEDICAL HISTORY: Benign neoplasms, cerebral meninges, cellulitis of the right foot, cellulites of the right leg, diabetic neuropathy, bilateral lower extremities, type 2 diabetes mellitus hypertension, hypothyroidism, microalbuminuria, sepsis, cellulitis and swelling of the right knee joint. PAST SURGICAL HISTORY: Noncontributory. ALLERGIES: No known drug allergies. MEDICATIONS: Doxycycline 100 mg p.o. b.i.d. as well as the other medications listed in his medical history. SOCIAL HISTORY: He denies tobacco use, denies drug use. He drinks occasionally on weekends. He is . He lives with his significant other. 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 PHYSICAL EXAMINATION: GENERAL: This is a 52-year-old gentleman who was visited by 2 female friends at bedside. The patient is alert and oriented x3. Speech clear and fluent. Affect is appropriate. EXTREMITIES: Examination of the lower extremities demonstrates edema with erythema, right lower extremity. He has 2-3/4 edema on the right side compared to 2/4 edema on the left side. He has 2-3 several zones of demarcation of the right lower extremity compared to the left lower extremity. Erythema is noted on the right compared to the left lower extremities. He has a 3.5 x 4 cm ovoid blister on the plantar medial aspect of his right foot. There appears to be somewhat milky consistency into the skin. There is some surrounding discoloration associated with the blister. There is no obvious ulceration. There appears to be induration surrounding this region of blister. There is no jaden abscess or fluctuance palpated. Dorsalis pedis and posterior tibial pulses are 2/4 bilateral lower extremities. He has significant stocking distribution neuropathy, bilateral lower extremities. He has dry cracked skin bilateral feet. He has venous stasis changes bilateral lower extremities, more pronounced on the right than the left. Strength is symmetric bilateral lower extremities with 5/5 for dorsiflexion, plantar flexion, inversion and eversion at the ankles and feet. Examination of the right knee demonstrates benign right knee compared to left knee with no obvious effusion of either knee. Range of motion is symmetric 0-135 degrees of flexion. There is no ligamentous instability noted bilateral knees. No abscess, no fluid collection surrounding the knees of the right or left lower extremity. No radiographs available for knee views during this stay. Ultrasound reviewed, noted to be no evidence of DVT. Chronic superficial thrombophlebitis, left lesser saphenous vein, reactive node within the right groin. No change from prior exam. MRI reviewed from 12/15/2017 noting cellulitis and fluid collection surrounding the plantar fascia. Raises concern for infectious plantar fasciitis with adjacent causation from the foot blister. No evidence of osteomyelitis. LABORATORY DATA: Reviewed indicating elevated white blood cell count, sed rate and CRP. IMPRESSION: 1. Right foot plantar abscess. 2. Infectious plantar fasciitis. 3. Septic blister plantar right foot. 4. Benign, right knee. RECOMMENDATION: N.p.o. after midnight. Discussed my findings with Dr. Becerra. Made her aware of my recommendations. The patient will be scheduled for incision and drainage of the right foot plantar abscess with debridement of the plantar fascia, subcutaneous tissue and skin. Continue IV antibiotics. Thank for the opportunity to consult in the care of this patient.
[2017-12-21] MEDS: AMITRIPTYLINE HCL 10 MG TAB PO SCH (20:36)
[2017-12-21] MEDS ORDERED: INSULIN GLARGINE SOLOSTAR 100 UNITS/ML 3 ML PEN SC SCH (21:00)
[2017-12-21 23:10] VITALS: BP 124/75; PULSE 86; TEMP 37.1; O2SAT 93
[2017-12-22] VITALS (9 sets, daily range): BP systolic 135–164; BP diastolic 78–93; PULSE 78–100; TEMP 36.4–37.3; O2SAT 92–97
[2017-12-22] MEDS ORDERED: NURSING VERBAL MED ORDER ONE (01:30)
[2017-12-22] MEDS: VANCOMYCIN IV 1,500 MG in SODIUM CHLORIDE 0.9% 500ML 500 ML IV SCH ×3 (01:57→18:30)
[2017-12-22] MEDS: LEVOTHYROXINE 50 MCG TAB PO SCH (05:58)
[2017-12-22] MEDS: INSULIN ASPART 100 UNITS/ML 3 ML PEN SC SCH ×4 (05:59→22:00)
[2017-12-22] MEDS ORDERED: PROPOFOL IV EMULSION 10 MG/ML 20 ML VIAL IV ONE (06:53)
[2017-12-22] MEDS ORDERED: ONDANSETRON INJ 2 MG/ML 2 ML VIAL ONE (06:53)
[2017-12-22] MEDS ORDERED: FENTANYL CITRATE INJ 50 MCG/1 ML 2 ML VIAL ONE (06:53)
[2017-12-22] MEDS ORDERED: LIDOCAINE HCL 2% 2 ML VIAL (20MG/ML) ONE (06:53)
[2017-12-22] MEDS ORDERED: MIDAZOLAM HCL 1 MG/ML 2ML VIAL ONE (06:54)
[2017-12-22] MEDS ORDERED: PROMETHAZINE HCL INJ 12.5 MG in SODIUM CHLORIDE 0.9% 50ML 50 ML IV PRN (07:00)
[2017-12-22] MEDS ORDERED: ONDANSETRON INJ 2 MG/ML 2 ML VIAL IV PRN (07:00)
[2017-12-22] MEDS ORDERED: PHENYLEPHRINE 100MCG/ML 5ML SYR IV PRN (07:00)
[2017-12-22] MEDS ORDERED: EpHEDrine SULFATE INJ 50 MG/ML AMP IV PRN (07:00)
[2017-12-22] MEDS ORDERED: HYDROmorphone INJ 1 MG/ML SYR IV PRN (07:00)
[2017-12-22] MEDS ORDERED: FENTANYL CITRATE INJ 50 MCG/1 ML 2 ML VIAL IV PRN (07:00)
[2017-12-22] MEDS ORDERED: ATROPINE SULFATE 0.1 MG/ML 5ML SYR IV PRN (07:00)
[2017-12-22] MEDS ORDERED: BACITRACIN 50000 UNIT VIAL ONE (07:02)
[2017-12-22] MEDS ORDERED: ROPIVACAINE 0.5% 5 MG/ML 30 ML VIAL ONE (07:33)
--- NOTE | 2017-12-22 07:43 | History & Physical Bridge Note ---
H&P Re-Evaluation Bridge Note: I have examined the patient, reviewed the History & Physical and in the interval since the performance of the History & Physical I have noted the following changes of clinical significance: No changes noted
[2017-12-22] MEDS ORDERED: BUPIVACAINE 0.5 % 5 MG/1 ML MPF 30ML VIAL ONE (08:06)
[2017-12-22] MEDS ORDERED: EpHEDrine SULFATE INJ 50 MG/ML AMP ONE (08:22)
[2017-12-22] MEDS: FERROUS SULFATE 325 MG TAB PO SCH ×3 (08:30→18:23)
--- NOTE | 2017-12-22 08:57 | [facility] Post Operative Brief Note ---
Immediate Operative Summary Operative Date Dec 22, 2017. Pre-Operative Diagnosis Right foot deep plantar abscess, Infectious plantar fasciitis, Septic blister plantar right foot. Post-Operative Diagnosis Right foot deep plantar abscess, Infectious plantar fasciitis, Septic blister plantar right foot. Procedure(s) Performed Right Foot: Incision and Drainage Deep abscess, Debridement of Plantar fascia and sub Q fat , Debridement 9 cm x 9 cm blister/ulcer skin. Surgeon Dr. Albarado Vice President Quality Surgeon(s) none Estimated Blood Loss 2 cc Findings Consistent with Post-Op Diagnosis Specimens Culture #1- Right foot abscess superficial, aerobic and anaerobic specimen sent for culture and sensitivity, gram stain Culture #2- Right foot abscess deep, aerobic and anaerobic specimen sent for culture and sensitivity, gram stain Drains 1/2" iodoform gauze Anesthesia Type General (local) Complication(s) none Disposition Accompanied Pt To Recover: no Disposition: Recovery Room / PACU
[2017-12-22] MEDS ORDERED: ENOXAPARIN 40 MG/0.4 ML SYR SQ SCH (09:00)
--- NOTE | 2017-12-22 09:25 | Anesthesiology Progress Note ---
Anesthesia Post Op Note Date & Time Dec 22, 2017 at 09:25 Vital Signs Pain Intensity: 0 Vital Signs Past 12 Hours Date Time Temp Pulse Resp B/P (MAP) Pulse Ox O2 Delivery O2 Flow Rate FiO2 12/22/17 09:10 80 16 131/83 94 Oxymask 15 12/22/17 09:00 36.3 78 16 121/77 95 Oxymask 15 12/22/17 05:54 36.7 86 18 135/87 (103) Room Air 12/21/17 23:26 Room Air 12/21/17 23:10 37.1 86 18 124/75 (91) 93 Room Air Notes Mental Status: alert / awake / arousable, participated in evaluation Pt Amnestic to Procedure: Yes Nausea / Vomiting: adequately controlled Pain: adequately controlled Airway Patency, RR, SpO2: stable & adequate BP & HR: stable & adequate Hydration State: stable & adequate Anesthetic Complications: no major complications apparent
[2017-12-22 11:19] LABS: CREATININE 0.94 mg/dl (0.60-1.40)
--- NOTE | 2017-12-22 11:42 | OPERATIVE REPORT ---
DATE OF OPERATION: 12/22/2017 PREOPERATIVE DIAGNOSES: 1. Right foot deep plantar abscess. 2. Infectious plantar fasciitis. 3. Septic blister right foot measuring 9 x 9 cm. POSTOPERATIVE DIAGNOSES: Same. PROCEDURES: 1. Right foot incision and drainage, deep abscess. 2. Debridement plantar fascia and subcutaneous fat, right foot. 3. Debridement 9 x 9 cm foot ulceration and blistering. SURGEON: Dr. Albarado. GREASE MONKEY: None. ANESTHESIA: General LMA with local. SPECIMENS: Aerobic, anaerobic, Gram stain for superficial culture and deep abscess cultures x2. DRAINS: Half-inch iodoform gauze. COMPLICATIONS: None. BLOOD LOSS: 3 mL PERTINENT HISTORY: This is a 52-year-old insulin-requiring diabetic who had approximately 1-week history of right foot pain, swelling, blistering and cellulitis. He was treated at [facility] for a period of approximately 4-5 days on IV antibiotics and discharged home and then returned after he had increased fevers, chills, swelling, redness of the right lower extremity, which was radiating proximally and possibly including the knee with increased stiffness and pain. He was admitted to the hospital for repeat IV antibiotics and orthopedics was consulted. MRI was reviewed, noted to have an abscess adjacent to the plantar fascia, which was believed to be the nidus of infection. The patient was then scheduled for surgery as indicated. All potential risks, benefits, complications, alternatives, rehab, potential for incomplete relief of symptoms, need for further surgery, DVT, PE, , persistent pain, swelling, scarring, weakness, neurovascular injury, wound complications, possible need for amputation were discussed with the patient. The patient decided to proceed with the procedure as indicated. DESCRIPTION OF PROCEDURE: The patient was taken to the operative suite, placed supine on the operating room table. After reviewing the consent and identification of proper operative site, the patient was anesthetized and LMA was placed. Right lower extremity was then sterilely prepped and draped in the usual fashion, elevated and partially exsanguinated from the ankle extending proximally with a 4-inch Esmarch tourniquet applied over sterile surgical towel at the level of the ankle. Next, a 15-blade scalpel was used to make an incision in the plantar aspect of the right medial foot at the site of blistering ulceration and the believed site of the deep abscess per positioning according to the MRI. The incision was made with a 15-blade scalpel and deepened through the skin and subcutaneous tissue. There was noted to be a more superficial abscess pocket with a creamy colored precipitate. This was cultured for aerobic, anaerobic, and Gram stain. Next, the incision was deepened with Metzenbaum scissors to the level of the plantar fascia and adjacent to the plantar fascia, there was noted to be a secondary fluid collection/phlegmon and this was then cultured with the second culturette for aerobic, anaerobic, and Gram stain testing. Next, the blister was unroofed and the skin was debrided sharply with a 15-blade scalpel. This area measured 9 x 9 cm in the plantar/plantar medial aspect of the right foot. After this was completed through the superficial skin and blistering, the deep abscess was then addressed and resected using a rongeur and curettage was performed with a large curette adjacent to the fascia and within the subcutaneous fat. Any questionable or necrotic-appearing tissue was resected. After debridement of the plantar fascia with a rongeur, forceps and a 15-blade scalpel, the necrotic tissue had been excised, the necrotic-appearing subcutaneous tissue and fat was also excised. Next, after all grossly necrotic debris and tissue had been removed from the wound and the blister pulsatile lavage, 3 liters saline with bacitracin was then used to cleanse the foot in all layers and planes. Next, top sheet and top gloves were changed followed by insertion of a 1/2-inch iodoform gauze drain extending the more medial aspect of the right foot through the small stab incision with the 15-blade scalpel. The right foot incision was then partially and loosely closed with interrupted 3-0 nylon horizontal mattress sutures. Next, a sterile lightly compressive dressing was applied followed by injection around the posterior tibial nerve and then a partial ankle block was then performed with approximately 20 mL of 0.5% Marcaine plain. An Sky wrap was then overwrapped over a 4-inch cast padding. The tourniquet was released. The patient was awakened and taken to recovery in stable condition. I attest to the content of the Intraoperative Record and any orders documented therein. Any exception s are noted below.
[2017-12-22] MEDS ORDERED: OXYCODONE HCL IR 5 MG TAB (IMMEDIATE RELEASE) PO PRN (12:15)
[2017-12-22] MEDS: LISINOPRIL 10 MG TAB PO SCH (12:31)
[2017-12-22] MEDS: ATORVASTATIN 40 MG TAB PO SCH (12:31)
[2017-12-22] MEDS: ACETAMINOPHEN 500 MG TAB PO SCH ×2 (14:23→20:55)
[2017-12-22] MEDS: AMITRIPTYLINE HCL 10 MG TAB PO SCH (20:54)
--- NOTE | 2017-12-22 21:13 | Progress Note ---
Medicine Progress Note Date & Time of Visit: Dec 22, 2017 at 21:13. Subjective Patient doing ok, denies any major complaints other than being a bit groggy from the anesthesia as patient was seen shortly after his right foot I&D. No overnight events noted. Tolerating PO. Objective Last 8 Hrs Date Time Temp Pulse Resp B/P (MAP) Pulse Ox O2 Delivery O2 Flow Rate FiO2 12/22/17 20:34 37.3 100 16 152/81 (104) 92 Room Air 12/22/17 16:10 Room Air 12/22/17 15:39 36.9 84 16 143/78 (99) 92 Room Air Physical Exam: GENERAL: Patient is in no acute distress. HEENT: No acute trauma, normocephalic, mucous membranes moist, no nasal congestion, no scleral icterus. NECK: No stridor, trachea is midline. LUNGS: Clear to auscultation bilaterally, no wheeze, no rhonchi, breath sounds equal. HEART: Without murmurs gallops or rubs, regular rate and rhythm. ABDOMEN: Soft, nontender, bowel sounds positive EXTREMITIES: No cyanosis; right knee mildly swollen; RLE wrapped in surgical dressing with drains NEUROLOGIC: Oriented x 3, no acute motor or sensory deficits, no focal weakness. SKIN: No rash, no jaundice, no diaphoresis. Laboratory Results: Last 24 Hours Test 12/22/17 05:59 12/22/17 09:22 12/22/17 10:25 12/22/17 12:17 Bedside Glucose 156 mg/dl 128 mg/dl 125 mg/dl Creatinine 0.94 mg/dl Est Creatinine Clear Calc Drug Dose 100.7 ml/min Estimated GFR () 107.6 Estimated GFR (Non- 92.8 Test 12/22/17 20:36 Bedside Glucose 172 mg/dl Date/Time Source Procedure Growth Status 12/22/17 08:15 Abscess Foot Right Gram Stain Pending Received 12/22/17 08:15 Abscess Foot Right Bacterial Culture Pending Received 12/22/17 08:15 Abscess Foot Right Gram Stain Pending Received 12/22/17 08:15 Abscess Foot Right Bacterial Culture Pending Received Assessment & Plan RIGHT FOOT INFECTION: -per Ortho notes and op notes, patient underwent I&D and was found to have a deep plantar abscess on the right foot, as well as infectious plantar fasciitis , and a septic blister -per admission notes patient was said to have RLE cellulitis with erythema of foot to middle tibia area and right calf swelling -MRI of right lower extremity on previous admission was negative for osteo -RLE US: negative for DVT; Chronic superficial thrombophlebitis of the left lesser saphenous vein RIGHT KNEE SWELLING: -Ortho consulted, per assessment it appears benign with no need for arthrocentesis -appears less swollen DM TYPE II: -hold metformin -on insulin + correction scale insulin -continue home meds for diabetic neuropathy HYPOTHYROIDISM: -continue levothyroxine HTN: -continue lisinopril DYSLIPIDEMIA: -continue statin Consultants: Ortho-Dr. Albarado ID-Dr. Wilhelm Current Inpatient Medications: Current Inpatient Medications Medications (Trade) Dose Ordered Sig/Minal Route Start Time Stop Time Status Last Admin Dose Admin Glucose (Glucose 40% Gel) 15-30 GRAMS 15 GRAMS... UD PRN PO 12/21/17 00:45 01/20/18 00:44 Glucose (Glucose Chew Tab) 4-8 Tablets 4 Tabl... UD PRN PO 12/21/17 00:45 01/20/18 00:44 Dextrose (Dextrose 50% 50ML Syringe) 25-50ML OF 50% DW IV FOR... UD PRN IV 12/21/17 00:45 01/20/18 00:44 Glucagon (Glucagon Inj) 1 mg UD PRN SQ 12/21/17 00:45 01/20/18 00:44 Amitriptyline HCl (Elavil Tab) 10 mg HS PO 12/21/17 21:00 01/20/18 20:59 12/22/17 20:54 10 MG Atorvastatin Calcium (Lipitor Tab) 40 mg DAILY PO 12/21/17 09:00 01/20/18 08:59 12/22/17 12:31 40 MG Levothyroxine Sodium (Synthroid Tab) 50 mcg DAILYBB PO 12/21/17 06:00 01/20/18 06:59 12/21/17 06:09 50 MCG Lisinopril (Zestril Tab) 10 mg DAILY PO 12/21/17 09:00 01/20/18 08:59 12/22/17 12:31 10 MG Miscellaneous (Iv Fluids Completed) 1 ea PRN PRN N/A 12/21/17 03:15 12/21/18 03:14 Miscellaneous Information (Consult) 1 ea UD PRN N/A 12/21/17 07:37 01/20/18 07:36 Vancomycin HCl 1500 mg/Sodium Chloride 530 ml @ 200 mls/hr Q8H IV 12/21/17 18:00 12/31/17 08:59 12/22/17 18:30 200 MLS/HR Insulin Glargine (Lantus Solostar Pen) 15 units Q12 SC 12/21/17 21:00 01/20/18 20:59 Future Hold 12/21/17 20:36 15 UNITS Ferrous Sulfate (Feosol Tab) 325 mg TIDM PO 12/21/17 12:30 01/20/18 12:29 12/22/17 18:23 325 MG Enoxaparin Sodium (Lovenox Inj) 40 mg QAM SQ 12/22/17 09:00 01/21/18 08:59 Future Hold Oxycodone HCl (Roxicodone Immediate Rel Tab) @ Q4 PRN PO 12/22/17 12:15 01/05/18 12:14 12/22/17 12:27 5 MG Acetaminophen (Tylenol Tab) 1,000 mg Q8 PO 12/22/17 14:00 01/21/18 13:59 12/22/17 20:55 1,000 MG Insulin Aspart (novoLOG ASPART) SLIDING SCALE If C... ACHS SC 12/22/17 21:00 01/21/18 20:59
[2017-12-23] MEDS ORDERED: VANCOMYCIN TROUGH ONE (01:30)
[2017-12-23] MEDS: VANCOMYCIN IV 1,500 MG in SODIUM CHLORIDE 0.9% 500ML 500 ML IV SCH (01:40)
[2017-12-23] MEDS ORDERED: [UNRECOGNIZED DRUG - REMARK] ONE (02:45)
[2017-12-23 03:49] VITALS: BP 107/64; PULSE 91; TEMP 37.2; O2SAT 93
[2017-12-23] MEDS: LEVOTHYROXINE 50 MCG TAB PO SCH (05:25)
[2017-12-23] MEDS: ACETAMINOPHEN 500 MG TAB PO SCH ×3 (05:25→21:00)
[2017-12-23 07:18] VITALS: BP 116/69; PULSE 89; TEMP 36.9; O2SAT 93
[2017-12-23 07:40] LABS: CREATININE 1.01 mg/dl (0.60-1.40)
[2017-12-23] MEDS: FERROUS SULFATE 325 MG TAB PO SCH ×3 (07:56→18:07)
[2017-12-23] MEDS: ATORVASTATIN 40 MG TAB PO SCH (07:57)
[2017-12-23] MEDS: LISINOPRIL 10 MG TAB PO SCH (07:57)
[2017-12-23] MEDS: INSULIN ASPART 100 UNITS/ML 3 ML PEN SC SCH ×4 (09:46→20:58)
--- NOTE | 2017-12-23 10:09 | Orthopedic Progress Note ---
Orthopedic Progress Note Date of Service Dec 23, 2017. Subjective Post OP Day: 1 Reports: feeling well, Denies: chest pain, SOB, nausea / vomiting, light headedness, calf pain Objective calves soft nontender, N/V intact, capillary refill less than 2 sec., incision C /D/I, A&O x3, toes mobile DRESSING REMOVED. INCISION INTACT. MILD BLOODY DRAINAGE FROM INCISION AND BLISTER AREA. NO PURULENCE NOTED. NO FURTHER FLUCTUANCE. MILD ERYTHEMA REMAINS ALONG THE ANKLE AND LOWER CALF. REMOVED APPROX 2-3" PACKING AND REDRESSED IN SIMILAR FASHION. Date Time Temp Pulse Resp B/P (MAP) Pulse Ox O2 Delivery O2 Flow Rate FiO2 12/23/17 07:50 Room Air 12/23/17 07:18 36.9 89 20 116/69 (85) 93 Room Air 12/23/17 03:49 37.2 91 18 107/64 (78) 93 Room Air 12/22/17 23:10 Room Air 12/22/17 22:57 37.3 100 18 138/80 (99) 93 Room Air 12/22/17 20:34 37.3 100 16 152/81 (104) 92 Room Air 12/22/17 16:10 Room Air 12/22/17 15:39 36.9 84 16 143/78 (99) 92 Room Air 12/22/17 12:50 36.4 90 18 149/91 (110) 96 Room Air 12/22/17 12:30 Room Air 12/22/17 11:50 88 16 154/80 (104) 97 4.0 12/22/17 10:50 83 16 164/90 (114) 95 4.0 12/22/17 10:20 78 16 159/93 (115) 95 4.0 Assessment & Plan Assessment: POD#1 SP I&D RIGHT FOOT Plan: PAIN MANAGEMENT NWB X 4-6 RLE- RX KNEE SCOOTER FOLLOW CULTURES, DR. WAGGONER ON BOARD. CONTINUE IV VANCO FOR NOW. WILL LIKELY NEED PICC LINE. WILL WAIT ON FINAL RECOMMENDATIONS BEFORE ORDERING. CONTINUE DAILY DRESSING CHANGES AND PULL PACKING.
[2017-12-23] MEDS: VANCOMYCIN IV 1,250 MG in SODIUM CHLORIDE 0.9% 250ML 250 ML IV SCH ×2 (10:15→19:56)
--- NOTE | 2017-12-23 12:53 | Pharmacy Progress Note ---
Pharmacy Abx Dose Short Note Date of Service Dec 23, 2017. Assessment & Plan Assessment 52 year old male receiving vancomycin for treatment of RLE cellulitis/abscess. Trough level overnight was elevated at 25.7. I confirmed with the nurse that a very minimal amount of the 0200 dose was administered. I expect the level to fall into therapeutic range by 1000 (~8.5 hours later), at which time I will initiate a new maintenance regimen. Scr has increased since initiation of vancomycin, will continue to monitor closely. Cultures remain negative, however per provider note, will continue IV vancomycin and await ID recs. Day # 4 of antimicrobial therapy. Plan Vancomycin * Trough level of 25.7 mcg/mL @ 0130 is supratherapeutic. * Change to 1250 mg IV every 10 hours @ 1000 * Goal trough level for SSTI : 15 to 20 mcg/mL * Trough or random level ordered for: 12/24/17 @0530 Pharmacy will continue to follow and will adjust dose/frequency as necessary. Thank you.
[2017-12-23 15:20] VITALS: O2SAT 97
[2017-12-23 15:21] VITALS: BP 138/77; PULSE 90; TEMP 36.7; O2SAT 97
--- NOTE | 2017-12-23 17:51 | Progress Note ---
Medicine Progress Note Date & Time of Visit: Dec 23, 2017 at 17:51. Subjective Patient doing well, only complains of swelling in leg, worse in the RLE. Denies any pain. No overnight events noted. Tolerating PO without difficulty. Has been NWB on the right and is experimenting with how he wants to get around. Objective Last 8 Hrs Date Time Temp Pulse Resp B/P (MAP) Pulse Ox O2 Delivery O2 Flow Rate FiO2 12/23/17 15:21 36.7 90 16 138/77 (97) 97 Room Air 12/23/17 15:20 97 Room Air Physical Exam: GENERAL: Patient is in no acute distress. HEENT: No acute trauma, normocephalic, mucous membranes moist, no nasal congestion, no scleral icterus. NECK: No stridor, trachea is midline. LUNGS: Clear to auscultation bilaterally, no wheeze, no rhonchi, breath sounds equal. HEART: Without murmurs gallops or rubs, regular rate and rhythm. ABDOMEN: Soft, nontender, bowel sounds positive EXTREMITIES: No cyanosis; right knee mildly swollen; R foot and ankle wrapped NEUROLOGIC: Oriented x 3, no acute motor or sensory deficits, no focal weakness. SKIN: No rash, no jaundice, no diaphoresis. Laboratory Results: Last 24 Hours Test 12/22/17 20:36 12/23/17 01:35 12/23/17 06:32 12/23/17 08:17 Bedside Glucose 172 mg/dl 170 mg/dl Vancomycin Level Trough 25.7 mcg/ml Creatinine 1.01 mg/dl Est Creatinine Clear Calc Drug Dose 93.7 ml/min Estimated GFR () 98.7 Estimated GFR (Non- 85.1 Test 12/23/17 12:14 12/23/17 17:01 Bedside Glucose 153 mg/dl 198 mg/dl Assessment & Plan RIGHT FOOT INFECTION: s/p I&D POD#1 -per Ortho notes and op notes, patient underwent I&D and was found to have a deep plantar abscess on the right foot, as well as infectious plantar fasciitis , and a septic blister -per admission notes patient was said to have RLE cellulitis with erythema of foot to middle tibia area and right calf swelling -MRI of right lower extremity on previous admission was negative for osteo -RLE US: negative for DVT; Chronic superficial thrombophlebitis of the left lesser saphenous vein -await intraop cultures to guide abx further -ID consulted, appreciate recs RIGHT KNEE SWELLING: -Ortho consulted, per assessment it appears benign with no need for arthrocentesis -appears less swollen DM TYPE II: -hold metformin -on insulin + correction scale insulin -continue home meds for diabetic neuropathy HYPOTHYROIDISM: -continue levothyroxine HTN: -continue lisinopril DYSLIPIDEMIA: -continue statin Consultants: Ortho-Dr. Albarado ID-Dr. Wilhelm Current Inpatient Medications: Current Inpatient Medications Medications (Trade) Dose Ordered Sig/Minal Route Start Time Stop Time Status Last Admin Dose Admin Glucose (Glucose 40% Gel) 15-30 GRAMS 15 GRAMS... UD PRN PO 12/21/17 00:45 01/20/18 00:44 Glucose (Glucose Chew Tab) 4-8 Tablets 4 Tabl... UD PRN PO 12/21/17 00:45 01/20/18 00:44 Dextrose (Dextrose 50% 50ML Syringe) 25-50ML OF 50% DW IV FOR... UD PRN IV 12/21/17 00:45 01/20/18 00:44 Glucagon (Glucagon Inj) 1 mg UD PRN SQ 12/21/17 00:45 01/20/18 00:44 Amitriptyline HCl (Elavil Tab) 10 mg HS PO 12/21/17 21:00 01/20/18 20:59 12/22/17 20:54 10 MG Atorvastatin Calcium (Lipitor Tab) 40 mg DAILY PO 12/21/17 09:00 01/20/18 08:59 12/23/17 07:57 40 MG Levothyroxine Sodium (Synthroid Tab) 50 mcg DAILYBB PO 12/21/17 06:00 01/20/18 06:59 12/23/17 05:25 50 MCG Lisinopril (Zestril Tab) 10 mg DAILY PO 12/21/17 09:00 01/20/18 08:59 12/23/17 07:57 10 MG Miscellaneous (Iv Fluids Completed) 1 ea PRN PRN N/A 12/21/17 03:15 12/21/18 03:14 Miscellaneous Information (Consult) 1 ea UD PRN N/A 12/21/17 07:37 01/20/18 07:36 Insulin Glargine (Lantus Solostar Pen) 15 units Q12 SC 12/21/17 21:00 01/20/18 20:59 Future Hold 12/21/17 20:36 15 UNITS Ferrous Sulfate (Feosol Tab) 325 mg TIDM PO 12/21/17 12:30 01/20/18 12:29 12/23/17 13:03 325 MG Enoxaparin Sodium (Lovenox Inj) 40 mg QAM SQ 12/22/17 09:00 01/21/18 08:59 Future Hold Oxycodone HCl (Roxicodone Immediate Rel Tab) @ Q4 PRN PO 12/22/17 12:15 01/05/18 12:14 12/22/17 12:27 5 MG Acetaminophen (Tylenol Tab) 1,000 mg Q8 PO 12/22/17 14:00 01/21/18 13:59 12/23/17 13:44 1,000 MG Insulin Aspart (novoLOG ASPART) SLIDING SCALE If C... ACHS SC 12/22/17 21:00 01/21/18 20:59 12/23/17 13:03 7 UNITS Vancomycin HCl 1250 mg/Sodium Chloride 275 ml @ 125 mls/hr Q10H IV 12/23/17 10:00 12/29/17 23:59 12/23/17 10:15 125 MLS/HR
[2017-12-23] MEDS: AMITRIPTYLINE HCL 10 MG TAB PO SCH (21:00)
[2017-12-23 23:09] VITALS: BP 119/70; PULSE 95; TEMP 37.1; O2SAT 90
[2017-12-24 00:19] VITALS: O2SAT 93
[2017-12-24] MEDS ORDERED: VANCOMYCIN TROUGH ONE (05:30)
[2017-12-24 05:35] LABS: HEMATOCRIT 26.2 % (42-52); HEMOGLOBIN 8.6 g/dL (14.0-18.0); MEAN CELL VOLUME 97.8 fL (80-100); MEAN CORPUSCULAR HEMOGLOBIN 32.1 pg (25-34); MEAN CORPUSCULAR HGB CONC 32.8 g/dl (32-36); MEAN PLATELET VOLUME 8.1 fL (7.4-10.4); PLATELET COUNT 413 K/uL (130-400); RED CELL DISTRIBUTION WIDTH CV 13.9 % (11.5-14.5); RED CELL DISTRIBUTION WIDTH SD 47.4 fL (36.4-46.3)
[2017-12-24] MEDS: VANCOMYCIN IV 1,250 MG in SODIUM CHLORIDE 0.9% 250ML 250 ML IV SCH (05:57)
[2017-12-24] MEDS: LEVOTHYROXINE 50 MCG TAB PO SCH (06:01)
[2017-12-24] MEDS: ACETAMINOPHEN 500 MG TAB PO SCH ×3 (06:02→20:49)
[2017-12-24 06:12] LABS: CALCIUM 8.3 mg/dl (8.5-10.1); CREATININE 0.89 mg/dl (0.60-1.40); POTASSIUM 3.8 mmol/L (3.5-5.1)
[2017-12-24 07:10] VITALS: BP 134/82; PULSE 83; TEMP 37; O2SAT 95
--- NOTE | 2017-12-24 07:54 | Anesthesiology Progress Note ---
Anesthesia Post Op Note Date & Time Dec 24, 2017 at 07:54 Vital Signs Pain Intensity: 1.0 Vital Signs Past 12 Hours Date Time Temp Pulse Resp B/P (MAP) Pulse Ox O2 Delivery O2 Flow Rate FiO2 12/24/17 00:19 93 Room Air 12/24/17 00:07 Room Air 12/23/17 23:09 37.1 95 16 119/70 (86) 90 Room Air Notes Mental Status: alert / awake / arousable, participated in evaluation Pt Amnestic to Procedure: Yes Nausea / Vomiting: adequately controlled Pain: adequately controlled Airway Patency, RR, SpO2: stable & adequate BP & HR: stable & adequate Hydration State: stable & adequate Anesthetic Complications: no major complications apparent
[2017-12-24] MEDS: ATORVASTATIN 40 MG TAB PO SCH (09:00)
[2017-12-24] MEDS: LISINOPRIL 10 MG TAB PO SCH (09:00)
[2017-12-24] MEDS: FERROUS SULFATE 325 MG TAB PO SCH ×3 (09:00→18:20)
[2017-12-24] MEDS: INSULIN ASPART 100 UNITS/ML 3 ML PEN SC SCH ×4 (09:11→20:51)
--- NOTE | 2017-12-24 11:18 | Progress Note ---
Subjective Date of Service: Dec 24, 2017. Subjective Pt evaluation today including: conversation w/ patient, physical exam, chart review, lab review pt seen in followup, had surgery on Sat, cultures pending but negative to date. Rare gpc on gram stain remains on vanco, tolerating well. pain controlled, no f/ c. no abd pain no n/v/d. Problem List Medical Problems: (1) Cellulitis Status: Acute (2) Cellulitis of foot, right Status: Acute (3) Cellulitis of right leg Status: Acute Objective Vital Signs Date Time Temp Pulse Resp B/P (MAP) Pulse Ox O2 Delivery O2 Flow Rate FiO2 12/24/17 07:30 Room Air 12/24/17 07:10 37.0 83 16 134/82 (99) 95 Room Air 12/24/17 00:19 93 Room Air 12/24/17 00:07 Room Air 12/23/17 23:09 37.1 95 16 119/70 (86) 90 Room Air 12/23/17 15:21 36.7 90 16 138/77 (97) 97 Room Air 12/23/17 15:20 97 Room Air Physical Exam General Appearance: WD/WN, no apparent distress Eyes: normal inspection, EOMI Neck: supple Respiratory/Chest: lungs clear, normal breath sounds, no respiratory distress Cardiovascular: regular rate, rhythm, no edema Abdomen: non tender, soft Extremities: non-tender, no pedal edema, + pedal edema Neurologic/Psychiatric: alert, oriented x 3 Skin: normal color, no rash Comments: dressing c/d/i, still with edema but erythema much improved Laboratory Results Item Value Date Time Blood Culture - Preliminary Resulted 12/20/172131 Blood NO GROWTH TO DATE. Blood Culture - Preliminary Resulted 12/20/172139 Blood NO GROWTH TO DATE. Gram Stain - Final Resulted 12/22/17 0815 Abscess Foot Right Gram Stain - Final Resulted 12/22/17 0815 Abscess Foot Right Last 24 Hours Test 12/23/17 12:14 12/23/17 17:01 12/23/17 20:52 12/24/17 05:23 Bedside Glucose 153 mg/dl 198 mg/dl 166 mg/dl White Blood Count 10.90 K/uL Red Blood Count 2.68 M/uL Hemoglobin 8.6 g/dL Hematocrit 26.2 % Mean Corpuscular Volume 97.8 fL Mean Corpuscular Hemoglobin 32.1 pg Mean Corpuscular Hemoglobin Concent 32.8 g/dl RDW Standard Deviation 47.4 fL RDW Coefficient of Variation 13.9 % Platelet Count 413 K/uL Mean Platelet Volume 8.1 fL Sodium Level 139 mmol/L Potassium Level 3.8 mmol/L Chloride Level 104 mmol/L Carbon Dioxide Level 26 mmol/L Anion Gap 9.0 mmol/L Blood Urea Nitrogen 12 mg/dl Creatinine 0.89 mg/dl Est Creatinine Clear Calc Drug Dose 106.4 ml/min Estimated GFR () 113.9 Estimated GFR (Non- 98.3 BUN/Creatinine Ratio 13.7 Random Glucose 150 mg/dl Calcium Level 8.3 mg/dl Vancomycin Level Trough 15.5 mcg/ml Assessment and Plan (1) Cellulitis of right lower extremity Assessment & Plan: will change to dapto and follow cultures. he will likely be d/c home on abx, await cultures.
[2017-12-24] MEDS ORDERED: DAPTOmycin IV 350 MG in SODIUM CHLORIDE 0.9% 50ML 50 ML IV SCH (11:30)
[2017-12-24] MEDS: DAPTOmycin IV 350 MG in SYRINGE 0 ML IV SCH (11:58)
--- NOTE | 2017-12-24 14:16 | Orthopedic Progress Note ---
Orthopedic Progress Note Date of Service Dec 24, 2017. Subjective Post OP Day: 2 Reports: feeling well, pain controlled w PO medications, Denies: complaints Objective calves soft nontender, A&O x3, toes mobile Pt with neuropathy. Dressing removed. Mild to moderate drainage noted on dressing. No purulence noted. No foul odor. 12" of packing removed. No purulence with pulling of packing. Mild erythema around the wound. Swelling continues but is not tense. Date Time Temp Pulse Resp B/P (MAP) Pulse Ox O2 Delivery O2 Flow Rate FiO2 12/24/17 07:30 Room Air 12/24/17 07:10 37.0 83 16 134/82 (99) 95 Room Air 12/24/17 00:19 93 Room Air 12/24/17 00:07 Room Air 12/23/17 23:09 37.1 95 16 119/70 (86) 90 Room Air 12/23/17 15:21 36.7 90 16 138/77 (97) 97 Room Air 12/23/17 15:20 97 Room Air Laboratory Results 24 Hours: Test 12/24/17 05:23 Hematocrit 26.2 % Hemoglobin 8.6 g/dL Assessment & Plan Assessment: POD#2 SP I&D RIGHT FOOT Plan: PAIN MANAGEMENT NWB X 4-6 RLE- RX KNEE SCOOTER FOLLOW CULTURES, DR. WAGGONER ON BOARD. CHANGED TO DAPTOMYCIN. WILL LIKELY NEED PICC LINE. WILL WAIT ON FINAL RECOMMENDATIONS BEFORE ORDERING. CONTINUE DAILY DRESSING CHANGES AND PULL PACKING. Inhouse Planning Pain Management: Oxy IR DVT Prophylaxis: SCDs
[2017-12-24 15:27] VITALS: BP 154/96; PULSE 88; TEMP 36.8; O2SAT 97
--- NOTE | 2017-12-24 20:14 | Progress Note ---
Medicine Progress Note Date & Time of Visit: Dec 24, 2017 at 20:14. Subjective Patient is doing ok, has some increased swelling B/L LE which is uncomfortable and was a concern. No overnight events noted. Pain is controlled. No overnight events noted. Patient had questions about the PICC line and home IV abx. was at the bedside and was updated as well. Objective Last 8 Hrs Date Time Temp Pulse Resp B/P (MAP) Pulse Ox O2 Delivery O2 Flow Rate FiO2 12/24/17 15:27 36.8 88 20 154/96 (115) 97 Room Air Physical Exam: GENERAL: Patient is in no acute distress. HEENT: No acute trauma, normocephalic, mucous membranes moist, no nasal congestion, no scleral icterus. NECK: No stridor, trachea is midline. LUNGS: Clear to auscultation bilaterally, no wheeze, no rhonchi, breath sounds equal. HEART: Without murmurs gallops or rubs, regular rate and rhythm. ABDOMEN: Soft, nontender, bowel sounds positive EXTREMITIES: No cyanosis; right knee mildly swollen; R foot and ankle wrapped NEUROLOGIC: Oriented x 3, no acute motor or sensory deficits, no focal weakness. SKIN: No rash, no jaundice, no diaphoresis. Laboratory Results: Last 24 Hours Test 12/23/17 20:52 12/24/17 05:23 12/24/17 11:33 12/24/17 11:58 Bedside Glucose 166 mg/dl 161 mg/dl White Blood Count 10.90 K/uL Red Blood Count 2.68 M/uL Hemoglobin 8.6 g/dL Hematocrit 26.2 % Mean Corpuscular Volume 97.8 fL Mean Corpuscular Hemoglobin 32.1 pg Mean Corpuscular Hemoglobin Concent 32.8 g/dl RDW Standard Deviation 47.4 fL RDW Coefficient of Variation 13.9 % Platelet Count 413 K/uL Mean Platelet Volume 8.1 fL Sodium Level 139 mmol/L Potassium Level 3.8 mmol/L Chloride Level 104 mmol/L Carbon Dioxide Level 26 mmol/L Anion Gap 9.0 mmol/L Blood Urea Nitrogen 12 mg/dl Creatinine 0.89 mg/dl Est Creatinine Clear Calc Drug Dose 106.4 ml/min Estimated GFR () 113.9 Estimated GFR (Non- 98.3 BUN/Creatinine Ratio 13.7 Random Glucose 150 mg/dl Calcium Level 8.3 mg/dl Vancomycin Level Trough 15.5 mcg/ml Total Creatine Kinase 123 U/L Assessment & Plan RIGHT FOOT INFECTION: s/p I&D POD#2 -per Ortho notes and op notes, patient underwent I&D and was found to have a deep plantar abscess on the right foot, as well as infectious plantar fasciitis , and a septic blister -per admission notes patient was said to have RLE cellulitis with erythema of foot to middle tibia area and right calf swelling -MRI of right lower extremity on previous admission was negative for osteo -RLE US: negative for DVT; 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 Albarado ID-Dr. Wilhelm Current Inpatient Medications: Current Inpatient Medications Medications (Trade) Dose Ordered Sig/Minal Route Start Time Stop Time Status Last Admin Dose Admin Glucose (Glucose 40% Gel) 15-30 GRAMS 15 GRAMS... UD PRN PO 12/21/17 00:45 01/20/18 00:44 Glucose (Glucose Chew Tab) 4-8 Tablets 4 Tabl... UD PRN PO 12/21/17 00:45 01/20/18 00:44 Dextrose (Dextrose 50% 50ML Syringe) 25-50ML OF 50% DW IV FOR... UD PRN IV 12/21/17 00:45 01/20/18 00:44 Glucagon (Glucagon Inj) 1 mg UD PRN SQ 12/21/17 00:45 01/20/18 00:44 Amitriptyline HCl (Elavil Tab) 10 mg HS PO 12/21/17 21:00 01/20/18 20:59 12/23/17 21:00 10 MG Atorvastatin Calcium (Lipitor Tab) 40 mg DAILY PO 12/21/17 09:00 01/20/18 08:59 12/24/17 09:00 40 MG Levothyroxine Sodium (Synthroid Tab) 50 mcg DAILYBB PO 12/21/17 06:00 01/20/18 06:59 12/24/17 06:01 50 MCG Lisinopril (Zestril Tab) 10 mg DAILY PO 12/21/17 09:00 01/20/18 08:59 12/24/17 09:00 10 MG Miscellaneous (Iv Fluids Completed) 1 ea PRN PRN N/A 12/21/17 03:15 12/21/18 03:14 Insulin Glargine (Lantus Solostar Pen) 15 units Q12 SC 12/21/17 21:00 01/20/18 20:59 Future Hold 12/21/17 20:36 15 UNITS Ferrous Sulfate (Feosol Tab) 325 mg TIDM PO 12/21/17 12:30 01/20/18 12:29 12/24/17 18:20 325 MG Enoxaparin Sodium (Lovenox Inj) 40 mg QAM SQ 12/22/17 09:00 01/21/18 08:59 Future Hold Oxycodone HCl (Roxicodone Immediate Rel Tab) @ Q4 PRN PO 12/22/17 12:15 01/05/18 12:14 12/22/17 12:27 5 MG Acetaminophen (Tylenol Tab) 1,000 mg Q8 PO 12/22/17 14:00 01/21/18 13:59 12/24/17 13:48 1,000 MG Insulin Aspart (novoLOG ASPART) SLIDING SCALE If C... ACHS SC 12/22/17 21:00 01/21/18 20:59 12/24/17 18:30 5 UNITS Daptomycin 350 mg/ Syringe 7 ml @ 3.5 mls/min Q24H IV 12/24/17 11:45 01/03/18 11:44 12/24/17 11:58 3.5 MLS/MIN
[2017-12-24] MEDS: AMITRIPTYLINE HCL 10 MG TAB PO SCH (20:49)
[2017-12-24 23:14] VITALS: BP 154/89; PULSE 87; TEMP 36.8
[2017-12-25] MEDS: LEVOTHYROXINE 50 MCG TAB PO SCH (05:36)
[2017-12-25] MEDS: ACETAMINOPHEN 500 MG TAB PO SCH ×3 (05:37→21:07)
[2017-12-25 07:20] VITALS: BP 150/90; PULSE 83; TEMP 36.7; O2SAT 95
[2017-12-25] MEDS: LISINOPRIL 10 MG TAB PO SCH (08:54)
[2017-12-25] MEDS: FERROUS SULFATE 325 MG TAB PO SCH ×3 (08:54→18:32)
[2017-12-25] MEDS: ATORVASTATIN 40 MG TAB PO SCH (08:54)
[2017-12-25] MEDS: INSULIN ASPART 100 UNITS/ML 3 ML PEN SC SCH ×4 (08:56→21:06)
--- NOTE | 2017-12-25 08:56 | Orthopedic Progress Note ---
Orthopedic Progress Note Date of Service Dec 25, 2017. Subjective Post OP Day: 3 Reports: feeling well, pain controlled w PO medications, Denies: complaints, chest pain, SOB, nausea / vomiting, calf pain Objective calves soft nontender, N/V intact, capillary refill less than 2 sec., incision C /D/I, A&O x3, toes mobile The last 1/2 inch of gauze packing removed from the plantar medial foot. No drainage noted. No purulence. No fluctuance at the plantar foot. Edges of the wound are well approximated. No erythema. Date Time Temp Pulse Resp B/P (MAP) Pulse Ox O2 Delivery O2 Flow Rate FiO2 12/25/17 07:20 36.7 83 16 150/90 (110) 95 Room Air 12/24/17 23:14 36.8 87 16 154/89 (110) Room Air 12/24/17 19:45 Room Air 12/24/17 15:27 36.8 88 20 154/96 (115) 97 Room Air Assessment & Plan Assessment: POD#3 S/P 1. Right foot incision and drainage, deep abscess. 2. Debridement plantar fascia and subcutaneous fat, right foot. 3. Debridement 9 x 9 cm foot ulceration and blistering Plan: PAIN MANAGEMENT NWB X 4-6 RLE- RX KNEE SCOOTER FOLLOW CULTURES, DR. WAGGONER ON BOARD. CHANGED TO DAPTOMYCIN. WILL LIKELY NEED PICC LINE. WILL WAIT ON FINAL RECOMMENDATIONS BEFORE ORDERING. All packing pulled today. NWB on the LLE. Plan for sutures to be in ~3-4 weeks. Ortho to sign off. Daily dry dressing changes. F/U with Dr. Albarado in 1 week. Inhouse Planning Pain Management: Oxy IR DVT Prophylaxis: SCDs
--- NOTE | 2017-12-25 08:59 | Consultant Recommendations ---
[facility] Recommendations Date of Service Dec 25, 2017. [facility] Recommendations ACTIVITY RECOMMENDATIONS: Limitations: No weight bearing to affected limb at all times. SPECIAL CARE INSTRUCTIONS: * Some drainage onto the dressing is normal and is no cause for alarm. * Some swelling is natural especially after walking. * When resting, keep your foot elevated above the level of your heart. * Call [facility] if you notice: -Increased drainage -Fever over 101 degrees F -Severe constant pain BANDAGE: * Dry dressing changes daily. FOLLOW UP VISIT WITH DR. RIVERS If appointment is not already scheduled: Please call [facility] after you get home today to schedule a follow-up appointment for [address] Rivers at .
--- NOTE | 2017-12-25 11:43 | Progress Note ---
Subjective Date of Service: Dec 25, 2017. Subjective Pt evaluation today including: conversation w/ patient, physical exam, chart review, lab review pt seen in followup, packing removed today, tolerated well. afebrile, pain controlled. all cultures negative but has been on multiple abx. agreeable to picc line, consent signed. all remaining ros reviewed and are negative. Problem List Medical Problems: (1) Cellulitis Status: Acute (2) Cellulitis of foot, right Status: Acute (3) Cellulitis of right leg Status: Acute Objective Vital Signs Date Time Temp Pulse Resp B/P (MAP) Pulse Ox O2 Delivery O2 Flow Rate FiO2 12/25/17 07:40 Room Air 12/25/17 07:20 36.7 83 16 150/90 (110) 95 Room Air 12/24/17 23:14 36.8 87 16 154/89 (110) Room Air 12/24/17 19:45 Room Air 12/24/17 15:27 36.8 88 20 154/96 (115) 97 Room Air Physical Exam General Appearance: WD/WN, no apparent distress Eyes: normal inspection, EOMI Neck: supple Respiratory/Chest: lungs clear, normal breath sounds, no respiratory distress Cardiovascular: regular rate, rhythm, no edema Abdomen: non tender, soft Extremities: non-tender, no pedal edema Neurologic/Psychiatric: alert, oriented x 3 Skin: normal color Comments: dressing c/d/i Laboratory Results Item Value Date Time Gram Stain - Final Resulted 12/22/17 0815 Abscess Foot Right Gram Stain - Final Resulted 12/22/17 0815 Abscess Foot Right Blood Culture - Preliminary Resulted 12/20/17 2140 Blood NO GROWTH TO DATE. Blood Culture - Preliminary Resulted 12/20/17 2132 Blood NO GROWTH TO DATE. Last 24 Hours Test 12/24/17 11:58 12/24/17 16:53 12/24/17 20:49 12/25/17 08:24 Bedside Glucose 161 mg/dl 165 mg/dl 177 mg/dl 216 mg/dl Assessment and Plan (1) Cellulitis of right lower extremity Assessment & Plan: will need 21 days dapto. can follow with ID post d/c. will need weekly cbc, cmp, esr, cpk while on dapto. consent signed.
[2017-12-25] MEDS: DAPTOmycin IV 350 MG in SYRINGE 0 ML IV SCH (14:38)
[2017-12-25 15:05] VITALS: BP 158/83; PULSE 89; TEMP 36.6; O2SAT 94
[2017-12-25] MEDS: AMITRIPTYLINE HCL 10 MG TAB PO SCH (21:07)
[2017-12-25 23:00] VITALS: BP 156/84; PULSE 87; TEMP 36.6; O2SAT 94
[2017-12-25 23:40] VITALS: O2SAT 94
--- NOTE | 2017-12-26 04:59 | Progress Note ---
Medicine Progress Note Date & Time of Visit: Dec 25, 2017 at 17:10 . Subjective Afebrile. No significant pain right foot, although has underlying neuropathy. Blood sugars running around 200. No chest pain. No cough or shortness of breath. No nausea, vomiting, diarrhea. . Objective Last 8 Hrs Date Time Temp Pulse Resp B/P (MAP) Pulse Ox O2 Delivery O2 Flow Rate FiO2 12/25/17 19:25 Room Air 12/25/17 15:05 36.6 89 20 158/83 (108) 94 Room Air Physical Exam: General- no distress Lungs- clear to auscultation; no respiratory distress Cardiovascular- RRR; no murmur; no gallop; no JVD; 1+ pretibial edema Abdomen- + bowel sounds, soft, nontender Extremities- no cyanosis; no calf tenderness; right foot bandaged Neuro- alert, oriented Skin- warm & dry . Laboratory Results: Last 24 Hours Test 12/25/17 08:24 12/25/17 12:14 Bedside Glucose 216 mg/dl 158 mg/dl Assessment & Plan ABSCESS RIGHT FOOT I & D performed by Dr. Albarado. Blood and wound cultures negative, but had been receiving antibiotics. ID consulted. 21 day course of daptomycin recommended. HYPERTENSION Continue lisinopril. DM TYPE II Well-controlled, but blood sugars running high with current infection. Hemoglobin A1c 6.6 on 12/15/17. Metformin and dulaglutide on hold during hospital stay. Follow blood sugars and titrate insulin therapy. HYPOTHYROIDISM Continue levothyroxine. VTE PROPHYLAXIS SCD's ordered. DISPOSITION Expected discharge to home with home health services for IV antibiotics. Family Medicine follow-up with Dr. Wan. Orthopedics follow-up with Dr. Albarado. ID follow-up with Dr. Wilhelm. . Consultants: Ortho-Dr. Albarado ID-Dr. Wilhelm Current Inpatient Medications: Current Inpatient Medications Medications (Trade) Dose Ordered Sig/Minal Route Start Time Stop Time Status Last Admin Dose Admin Glucose (Glucose 40% Gel) 15-30 GRAMS 15 GRAMS... UD PRN PO 12/21/17 00:45 01/20/18 00:44 Glucose (Glucose Chew Tab) 4-8 Tablets 4 Tabl... UD PRN PO 12/21/17 00:45 01/20/18 00:44 Dextrose (Dextrose 50% 50ML Syringe) 25-50ML OF 50% DW IV FOR... UD PRN IV 12/21/17 00:45 01/20/18 00:44 Glucagon (Glucagon Inj) 1 mg UD PRN SQ 12/21/17 00:45 01/20/18 00:44 Amitriptyline HCl (Elavil Tab) 10 mg HS PO 12/21/17 21:00 01/20/18 20:59 12/24/17 20:49 10 MG Atorvastatin Calcium (Lipitor Tab) 40 mg DAILY PO 12/21/17 09:00 01/20/18 08:59 12/25/17 08:54 40 MG Levothyroxine Sodium (Synthroid Tab) 50 mcg DAILYBB PO 12/21/17 06:00 01/20/18 06:59 12/25/17 05:36 50 MCG Lisinopril (Zestril Tab) 10 mg DAILY PO 12/21/17 09:00 01/20/18 08:59 12/25/17 08:54 10 MG Miscellaneous (Iv Fluids Completed) 1 ea PRN PRN N/A 12/21/17 03:15 12/21/18 03:14 Insulin Glargine (Lantus Solostar Pen) 15 units Q12 SC 12/21/17 21:00 01/20/18 20:59 Future Hold 12/21/17 20:36 15 UNITS Ferrous Sulfate (Feosol Tab) 325 mg TIDM PO 12/21/17 12:30 01/20/18 12:29 12/25/17 18:32 325 MG Enoxaparin Sodium (Lovenox Inj) 40 mg QAM SQ 12/22/17 09:00 01/21/18 08:59 Future Hold Oxycodone HCl (Roxicodone Immediate Rel Tab) @ Q4 PRN PO 12/22/17 12:15 01/05/18 12:14 12/22/17 12:27 5 MG Acetaminophen (Tylenol Tab) 1,000 mg Q8 PO 12/22/17 14:00 01/21/18 13:59 12/25/17 13:57 1,000 MG Insulin Aspart (novoLOG ASPART) SLIDING SCALE If C... ACHS SC 12/22/17 21:00 01/21/18 20:59 12/25/17 18:30 15 UNITS Daptomycin 350 mg/ Syringe 7 ml @ 3.5 mls/min Q24H IV 12/24/17 11:45 01/03/18 11:44 12/25/17 14:38 3.5 MLS/MIN Heparin Sodium (Porcine) (Heparin 10 Unit/ ml 5 ml Flush) 5 ml PRN PRN FLUSH 12/25/17 14:45 01/24/18 14:44 12/25/17 14:42 5 ML
[2017-12-26] MEDS: LEVOTHYROXINE 50 MCG TAB PO SCH (05:52)
[2017-12-26] MEDS: ACETAMINOPHEN 500 MG TAB PO SCH ×2 (05:53→13:59)
[2017-12-26 06:32] LABS: HEMATOCRIT 28.7 % (42-52); HEMOGLOBIN 9.4 g/dL (14.0-18.0); MEAN CELL VOLUME 96.6 fL (80-100); MEAN CORPUSCULAR HEMOGLOBIN 31.6 pg (25-34); MEAN CORPUSCULAR HGB CONC 32.8 g/dl (32-36); MEAN PLATELET VOLUME 8.4 fL (7.4-10.4); PLATELET COUNT 534 K/uL (130-400); RED CELL DISTRIBUTION WIDTH CV 14.1 % (11.5-14.5); RED CELL DISTRIBUTION WIDTH SD 48.8 fL (36.4-46.3); WHITE BLOOD COUNT 9.05 K/uL (4.8-10.8)
[2017-12-26 06:42] LABS: PTT PATIENT 35.3 SECONDS (21.0-31.0)
[2017-12-26 07:07] LABS: CALCIUM 8.8 mg/dl (8.5-10.1); CREATININE 0.95 mg/dl (0.60-1.40)
[2017-12-26 07:43] VITALS: BP 149/85; PULSE 82; TEMP 36.7; O2SAT 95
[2017-12-26 07:53] VITALS: O2SAT 95
[2017-12-26] MEDS ORDERED: LOVENOX TEACHING KIT ONE (09:00)
[2017-12-26] MEDS ORDERED: ENOXAPARIN 40 MG/0.4 ML SYR SQ SCH (09:00)
[2017-12-26] MEDS: LISINOPRIL 10 MG TAB PO SCH (09:02)
[2017-12-26] MEDS: ATORVASTATIN 40 MG TAB PO SCH (09:02)
[2017-12-26] MEDS: FERROUS SULFATE 325 MG TAB PO SCH ×2 (09:02→13:00)
[2017-12-26] MEDS: INSULIN ASPART 100 UNITS/ML 3 ML PEN SC SCH ×2 (09:06→13:05)
[2017-12-26] MEDS ORDERED: DAPT500I IV (11:36)
[2017-12-26] MEDS ORDERED: DAPTOmycin IV 350 MG in SYRINGE 0 ML IV SCH (14:00)
--- NOTE | 2017-12-26 14:03 | Progress Note ---
Medicine Progress Note Date & Time of Visit: Dec 26, 2017 at 14:03 . Subjective Doing well. No fever. No foot pain. No nausea, vomiting, diarrhea. . Objective Last 8 Hrs Date Time Temp Pulse Resp B/P (MAP) Pulse Ox O2 Delivery O2 Flow Rate FiO2 12/26/17 07:53 95 Room Air 12/26/17 07:43 36.7 82 18 149/85 (106) 95 Room Air 12/26/17 07:30 Room Air Physical Exam: General- no distress Lungs- clear to auscultation; no respiratory distress Cardiovascular- RRR; no murmur; no gallop; no JVD; 1+ pretibial edema Abdomen- + bowel sounds, soft, nontender Extremities- no cyanosis; no calf tenderness; right foot bandaged Neuro- alert, oriented Skin- warm & dry . Laboratory Results: Last 24 Hours Test 12/25/17 17:16 12/25/17 20:48 12/26/17 05:33 12/26/17 05:40 Bedside Glucose 218 mg/dl 230 mg/dl 141 mg/dl White Blood Count 9.05 K/uL Red Blood Count 2.97 M/uL Hemoglobin 9.4 g/dL Hematocrit 28.7 % Mean Corpuscular Volume 96.6 fL Mean Corpuscular Hemoglobin 31.6 pg Mean Corpuscular Hemoglobin Concent 32.8 g/dl RDW Standard Deviation 48.8 fL RDW Coefficient of Variation 14.1 % Platelet Count 534 K/uL Mean Platelet Volume 8.4 fL Erythrocyte Sedimentation Rate 81 mm/hr Prothrombin Time 10.9 SECONDS Prothromb Time International Ratio 1.0 Activated Partial Thromboplast Time 35.3 SECONDS Partial Thromboplastin Ratio 1.4 Sodium Level 139 mmol/L Potassium Level 4.0 mmol/L Chloride Level 103 mmol/L Carbon Dioxide Level 30 mmol/L Anion Gap 6.0 mmol/L Blood Urea Nitrogen 12 mg/dl Creatinine 0.95 mg/dl Est Creatinine Clear Calc Drug Dose 99.7 ml/min Estimated GFR () 106.2 Estimated GFR (Non- 91.7 BUN/Creatinine Ratio 12.5 Random Glucose 133 mg/dl Calcium Level 8.8 mg/dl C-Reactive Protein 4.09 mg/dl Test 12/26/17 08:19 Bedside Glucose 158 mg/dl Assessment & Plan ABSCESS RIGHT FOOT I & D performed by Dr. Albarado. Blood and wound cultures negative, but had been receiving antibiotics. ID consulted. 21 day course of daptomycin recommended. PICC placed in arrangements made for outpatient IV therapy with laboratory monitoring. HYPERTENSION Continue lisinopril. DM TYPE II Well-controlled, but blood sugars running high with current infection. Hemoglobin A1c 6.6 on 12/15/17. Metformin, exenatide held during hospital stay. Discharged on insulin glargine, metformin, and exenatide transitioning to dulaglutide per prescription plan formulary. Follow blood sugars and titrate insulin therapy. HYPOTHYROIDISM Continue levothyroxine. DEPENDENT EDEMA Discharged on furosemide 40 mg daily. Monitor fluid status, labs. VTE PROPHYLAXIS SCD's utilized. Enoxaparin added. Ongoing risk for VTE after discharge due to infection and immobilization. Discharged on enoxaparin 40 mg subcu daily for 30 days. DISPOSITION Discharge to home with home health services for IV antibiotics. Family Medicine follow-up with Dr. Wan. Orthopedics follow-up with Dr. Albarado. ID follow-up with Dr. Wilhelm. . Consultants: Ortho-Dr. Albarado ID-Dr. Wilhelm Current Inpatient Medications: Current Inpatient Medications Medications (Trade) Dose Ordered Sig/Minal Route Start Time Stop Time Status Last Admin Dose Admin Glucose (Glucose 40% Gel) 15-30 GRAMS 15 GRAMS... UD PRN PO 12/21/17 00:45 01/20/18 00:44 Glucose (Glucose Chew Tab) 4-8 Tablets 4 Tabl... UD PRN PO 12/21/17 00:45 01/20/18 00:44 Dextrose (Dextrose 50% 50ML Syringe) 25-50ML OF 50% DW IV FOR... UD PRN IV 12/21/17 00:45 01/20/18 00:44 Glucagon (Glucagon Inj) 1 mg UD PRN SQ 12/21/17 00:45 01/20/18 00:44 Amitriptyline HCl (Elavil Tab) 10 mg HS PO 12/21/17 21:00 01/20/18 20:59 12/25/17 21:07 10 MG Atorvastatin Calcium (Lipitor Tab) 40 mg DAILY PO 12/21/17 09:00 01/20/18 08:59 12/26/17 09:02 40 MG Levothyroxine Sodium (Synthroid Tab) 50 mcg DAILYBB PO 12/21/17 06:00 01/20/18 06:59 12/26/17 05:52 50 MCG Lisinopril (Zestril Tab) 10 mg DAILY PO 12/21/17 09:00 01/20/18 08:59 12/26/17 09:02 10 MG Miscellaneous (Iv Fluids Completed) 1 ea PRN PRN N/A 12/21/17 03:15 12/21/18 03:14 Insulin Glargine (Lantus Solostar Pen) 15 units Q12 SC 12/21/17 21:00 01/20/18 20:59 Future Hold 12/21/17 20:36 15 UNITS Ferrous Sulfate (Feosol Tab) 325 mg TIDM PO 12/21/17 12:30 01/20/18 12:29 12/26/17 13:00 325 MG Oxycodone HCl (Roxicodone Immediate Rel Tab) @ Q4 PRN PO 12/22/17 12:15 01/05/18 12:14 12/22/17 12:27 5 MG Acetaminophen (Tylenol Tab) 1,000 mg Q8 PO 12/22/17 14:00 01/21/18 13:59 12/26/17 13:59 1,000 MG Insulin Aspart (novoLOG ASPART) SLIDING SCALE If C... ACHS SC 12/22/17 21:00 01/21/18 20:59 12/26/17 13:05 15 UNITS Heparin Sodium (Porcine) (Heparin 10 Unit/ ml 5 ml Flush) 5 ml PRN PRN FLUSH 12/25/17 14:45 01/24/18 14:44 12/26/17 06:06 5 ML Daptomycin 350 mg/ Syringe 7 ml @ 3.5 mls/min Q24H IV 12/26/17 14:00 01/03/18 13:59 12/26/17 13:59 3.5 MLS/MIN Enoxaparin Sodium (Lovenox Inj) 40 mg QAM SQ 12/26/17 09:00 01/25/18 08:59 12/26/17 09:02 40 MG
[2017-12-26] MEDS ORDERED: LVNIS40 SQ (14:16)
[2017-12-26] MEDS ORDERED: POTA-74 PO (14:16)
[2017-12-26] MEDS ORDERED: LSX20 PO (14:16)
--- NOTE | 2017-12-26 14:30 | Discharge Instructions ---
Discharge Instructions Date of Service Dec 26, 2017. Admission Reason for Admission: abscess right foot . Discharge Discharge Diagnosis / Problem: abscess right foot Discharge Goals Goal(s): Improve disease control Activity Recommendations Activity Limitations: as noted below Weightbearing Status: Right non-weightbearing . Instructions / Follow-Up Instructions / Follow-Up APPOINTMENTS: FAMILY MEDICINE 12/31/2017 2:00 PM Travis Mejía III, MD (covering for Dr. Wan) 01/18/2018 11:10 AM India Wan, DO ORTHOPEDICS Please call Dr. Albarado's office for appointment next week. INFECTIOUS DISEASE Please call Dr. Wilhelm's office for appointment next week. OTHER INSTRUCTIONS: Daptomycin 350 mg IV daily for 21 days. Home health agency to check labs weekly while on daptomycin- CBC, ESR, comprehensive metabolic profile, CPK. PICC line should be removed once you have completed intervenous antibiotics. Check with Dr. Wilhelm and Dr. Albarado to see when it should be removed. Change dressings right foot daily. Wrap with sterile gauze, then elastic bandage (not too tight). enoxaparin (Lovenox) 40 mg injected daily for 30 days to prevent blood clots furosemide (Lasix) 20 mg daily for fluid retention potassium chloride 10 mEq daily to replace potassium (uncertain whether or not these will be long-term medications, so prescriptions are only for 30 days with 1 refill) Resume metformin (Glucophage) 1000 mg twice a day as before. Transition from exenatide (Bydureon) to dulaglutide (Trulicity) when you run out of Bydureon. Insulin glargine (transitioning from Lantus to Basaglar) Start with 30 units at bedtime. Gradually increase dose (by 5 units at a time) to 50 mg if your fasting blood sugars are higher than 140. Seek medical attention if you have: * temperature above 101 * drainage from surgical incision * chest pain or trouble breathing * abdominal pain, nausea, vomiting * diarrhea, dark stools or bloody stools * any unanswered questions or concerns Call [phone] if symptoms are severe. Call if you have any questions or problems. My cell # is [phone]. You can also reach a [facility] hospitalist on duty at [facility] 24 hours a day by calling [phone]. Please take good care of yourself. Travis Barrett . Current Hospital Diet Patient's current hospital diet: Diabetes Type 2 Diet, Low Sodium Diet (2gm Na) Discharge Diet Recommended Diet: AHA Diet (Heart Healthy), Diabetes Type 2 Diet Procedures Procedures Performed: Right Foot: Incision and Drainage Deep abscess, Debridement of Plantar fascia and sub Q fat , Debridement 9 cm x 9 cm blister/ulcer skin. Pending Studies Studies pending at discharge: no Laboratory Results Hemoglobin A1c Test 12/15/17 16:07 Range/Units Estimated Average Glucose 143 mg/dl Hemoglobin A1c 6.6 H 4.5-5.6 % Medical Emergencies . Who to Call and When: Medical Emergencies: If at any time you feel your situation is an emergency, please call 911 immediately. . Non-Emergent Contact Non-Emergency issues call your: Primary Care Provider, Hospital Doctor, Surgeon , Specialist (Infectious Disease) . . "Provider Documentation" section prepared by Travis Barrett. . Swatch Paster Recommendations Swatch Paster Recommendations: ACTIVITY RECOMMENDATIONS: Limitations: No weight bearing to affected limb at all times. SPECIAL CARE INSTRUCTIONS: * Some drainage onto the dressing is normal and is no cause for alarm. * Some swelling is natural especially after walking. * When resting, keep your foot elevated above the level of your heart. * Call [facility] if you notice: -Increased drainage -Fever over 101 degrees F -Severe constant pain BANDAGE: * Dry dressing changes daily. FOLLOW UP VISIT WITH DR. ALBARADO If appointment is not already scheduled: Please call [facility] after you get home today to schedule a follow-up appointment for [address] Albarado at .
[2017-12-26 16:20] VITALS: BP 129/76; PULSE 85; TEMP 36.7; O2SAT 93
[2017-12-26 16:27] VITALS: BP 129/76; PULSE 85; TEMP 36.7; O2SAT 93
--- NOTE | 2017-12-31 04:47 | Discharge Summary ---
Discharge Summary Date of Service Dec 31, 2017. Discharge Summary Admission Date: Dec 21, 2017 at 18:59 Discharge Date: Dec 26, 2017 Discharge Disposition: Home with services Principal Diagnosis: abscess / cellulitis right foot . 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 Procedures: US lower extremity I&D right foot by Dr. Albarado on 12/22/17 IV meds PICC . Consultations: Ortho-Dr. Albarado ID-Dr. Wilhelm Medication Reconciliation New Medications: Daptomycin (Daptomycin) 500 Mg Inj 350 MG IV DAILY for 21 Days, #21 DOSE Enoxaparin (Enoxaparin Sodium) 40 Mg/0.4 Ml Inj 40 MG SQ DAILY, #30 SYR Furosemide (Furosemide) 20 Mg Tab 20 MG PO DAILY, #30 TAB 1 Refill Potassium Chloride (Potassium Chloride Er) 10 Meq Tab 10 MEQ PO DAILY, #30 TAB 1 Refill Continued Medications: Acetaminophen (Tylenol) 500 Mg Tab 1000 MG PO Q6 PRN for Pain, TAB Amitriptyline Hcl (Elavil) 10 Mg Tab 10 MG PO HS, TAB Aspirin (Aspirin Ec) 81 Mg Tab 81 MG PO DAILY Atorvastatin (Lipitor) 40 Mg Tab 40 MG PO DAILY, TAB hold while receiving daptomycin Dulaglutide (Trulicity) 0.75 Mg/0.5 Ml Inj 0.75 MG SQ WK Ferrous Sulfate (Ferrous Sulfate) 325 Mg Tab 325 MG PO TIDM for 30 Days, #90 TAB 1 Refill Ibuprofen Tab (Advil) 200 Mg Tab 400 MG PO Q4 PRN for Pain, TAB Insulin Glargine (Lantus Solostar) 100 Unit/Ml Inj 0 SQ QPM, PEN Evening of 12/26/17 start with 30 units at bedtime. If blood sugars run high, gradually increase dose to 50 units as before. Levothyroxine Sodium (Levothyroxine Sodium) 50 Mcg Tab 50 MCG PO DAILY, TAB 3 Refills Lisinopril (Prinivil) 10 Mg Tab 10 MG PO DAILY, TAB Meclizine Hcl (Meclizine Hcl) 12.5 Mg Tab 12.5 MG PO TID PRN for Dizziness or Vertigo Metformin Hcl (Glucophage) 1,000 Mg Tab 1000 MG PO BID, TAB Valacyclovir Hcl (Valtrex) 1 Gm Tab 1 GM PO BID PRN for BREAKOUTS, TAB Discontinued Medications: Doxycycline Hyclate (Doxycycline Hyclate) 100 Mg Cap 100 MG PO BID for 7 Days, #14 CAP Silver Sulfadiazine (Silvadene) 1 % Cre 1 APPLN TOP BID PRN for for 7 Days, #50 GM Admission Information HPI (per Admitting provider): 52 year old M who had recent admission and discharge (12/12/17 to 12/19/17) at [facility] who returns to the emergency room Chart review as per previous discharge summary of the hospital course 52-year-old diabetic man presents with 1-1/2 weeks of swelling in his right lower extremity. 5 days prior to arrival he noted a worsening of pain and warmth in this area in addition to the formation of a blister on the plantar side of his foot. He had been worked up for gout and DVT as outpatient which was negative. He was started on treatment for cellulitis with ceftriaxone injections and Bactrim. He failed outpatient therapy as clinical status declined. He presented to the ER with sepsis and was placed on empiric broad- spectrum antibiotics and resuscitated appropriately. General surgery evaluated the foot and after MRI revealed no abscess or osteomyelitis, decided against surgical I&D. Blood cultures were negative. Infectious disease was consulted and recommended continuation of IV therapy for a couple of days as inpatient; he received approximately 5 days of IV therapy. He was transitioned to doxy p.o. on discharge. By day of discharge he was ambulating at baseline, mentating at baseline, tolerating p.o., reporting no symptoms including pain. Physical exam was unremarkable aside from plantar fascia blister and mild but healing erythema and warmth on the dorsum of foot. Abdomen was soft, nontender and nondistended. Lungs were clear to auscultation,heart exam was normal. He was discharged in stable condition with close follow-up with primary care provider. Of note he was found to be anemic in the hospital. Iron studies revealed borderline iron deficiency anemia and he was started on iron supplementation. This will be followed as outpatient. Podiatry follow-up was recommended. Patient reports that on 12/20/17 he had T max of 99.9F which he describes as a fever and took 2 Tylenol and a tablet of the oral doxycycline He woke up in the AM of 12/21/17 and noticed right knee swelling that became progressively worse throughout the day. At home he had T max of 99.8F and took his morning dose of doxycycline Patient returned to the ED at night on 12/21/17 at [facility] with concerns that with recent elevated temperature and right knee swelling that the right lower extremity worse getting worse. 99.7F on arrival In the ED, the emergency room physician ordered 1 tab of Bactrim, 1 gram IV Ceftriaxone, and 1 gram of IV Vancomycin and patient had ultrasound of right lower extremity . Physical Exam (per Admitting): General Appearance: no apparent distress Head: normocephalic, atraumatic Eyes: normal inspection, EOMI, sclerae normal ENT: normal ENT inspection, hearing grossly normal, pharynx normal Neck: supple, no adenopathy, no JVD, trachea midline Respiratory/Chest: chest non-tender, lungs clear, normal breath sounds, no respiratory distress, no accessory muscle use Cardiovascular: regular rate, rhythm, no JVD, no murmur, normal peripheral pulses Abdomen/GI: normal bowel sounds, non tender, soft, no organomegaly, no pulsatile mass Back: normal inspection, no CVA tenderness, no muscle spasm, normal range of motion Extremities/Musculoskelatal: + pertinent finding (erythema of right foot to middle tibia, left calf swelling, right knee swollen but not erythematous) Neurologic/Psych: no motor/sensory deficits, alert, normal mood/affect, oriented x 3 Skin: + pertinent finding (erythema of right foot to middle tibia) Hospital Course ABSCESS RIGHT FOOT I & D performed by Dr. Albarado. Blood and wound cultures negative, but had been receiving antibiotics. ID consulted. 21 day course of daptomycin recommended. PICC placed in arrangements made for outpatient IV therapy with laboratory monitoring. HYPERTENSION Continue lisinopril. DM TYPE II Well-controlled, but blood sugars running high with current infection. Hemoglobin A1c 6.6 on 12/15/17. Metformin, exenatide held during hospital stay. Discharged on insulin glargine, metformin, and exenatide transitioning to dulaglutide per prescription plan formulary. Follow blood sugars and titrate insulin therapy. HYPOTHYROIDISM Continue levothyroxine. DEPENDENT EDEMA Discharged on furosemide 40 mg daily. Monitor fluid status, labs. VTE PROPHYLAXIS SCD's utilized. Enoxaparin added. Ongoing risk for VTE after discharge due to infection and immobilization. Discharged on enoxaparin 40 mg subcu daily for 30 days. DISPOSITION Discharge to home with home health services for IV antibiotics. Family Medicine follow-up with Dr. Wan. Orthopedics follow-up with Dr. Albarado. ID follow-up with Dr. Wilhelm. . Total time spent on discharge = 40 min. This includes examination of the patient, discharge planning, medication reconciliation, and communication with other providers. . Discharge Instructions Date of Service Dec 26, 2017. Admission Reason for Admission: abscess right foot . Discharge Discharge Diagnosis / Problem: abscess right foot Discharge Goals Goal(s): Improve disease control Activity Recommendations Activity Limitations: as noted below Weightbearing Status: Right non-weightbearing . Instructions / Follow-Up Instructions / Follow-Up APPOINTMENTS: FAMILY MEDICINE 12/31/2017 2:00 PM Travis Mejía III, MD (covering for Dr. Wan) 01/18/2018 11:10 AM India Wan, DO ORTHOPEDICS Please call Dr. Albarado's office for appointment next week. INFECTIOUS DISEASE Please call Dr. Wilhelm's office for appointment next week. OTHER INSTRUCTIONS: Daptomycin 350 mg IV daily for 21 days. Home health agency to check labs weekly while on daptomycin- CBC, ESR, comprehensive metabolic profile, CPK. PICC line should be removed once you have completed intervenous antibiotics. Check with Dr. Wilhelm and Dr. Albarado to see when it should be removed. Change dressings right foot daily. Wrap with sterile gauze, then elastic bandage (not too tight). enoxaparin (Lovenox) 40 mg injected daily for 30 days to prevent blood clots furosemide (Lasix) 20 mg daily for fluid retention potassium chloride 10 mEq daily to replace potassium (uncertain whether or not these will be long-term medications, so prescriptions are only for 30 days with 1 refill) Resume metformin (Glucophage) 1000 mg twice a day as before. Transition from exenatide (Bydureon) to dulaglutide (Trulicity) when you run out of Bydureon. Insulin glargine (transitioning from Lantus to Basaglar) Start with 30 units at bedtime. Gradually increase dose (by 5 units at a time) to 50 mg if your fasting blood sugars are higher than 140. Seek medical attention if you have: * temperature above 101 * drainage from surgical incision * chest pain or trouble breathing * abdominal pain, nausea, vomiting * diarrhea, dark stools or bloody stools * any unanswered questions or concerns Call 911 if symptoms are severe. Call if you have any questions or problems. My cell # is [phone]. You can also reach a [facility] hospitalist on duty at [facility] 24 hours a day by calling [phone]. Please take good care of yourself. Travis Barrett . Current Hospital Diet Patient's current hospital diet: Diabetes Type 2 Diet, Low Sodium Diet (2gm Na) Discharge Diet Recommended Diet: AHA Diet (Heart Healthy), Diabetes Type 2 Diet Procedures Procedures Performed: Right Foot: Incision and Drainage Deep abscess, Debridement of Plantar fascia and sub Q fat , Debridement 9 cm x 9 cm blister/ulcer skin. Pending Studies Studies pending at discharge: no Laboratory Results Hemoglobin A1c Test 12/15/17 16:07 Range/Units Estimated Average Glucose 143 mg/dl Hemoglobin A1c 6.6 H 4.5-5.6 % Medical Emergencies . Who to Call and When: Medical Emergencies: If at any time you feel your situation is an emergency, please call 911 immediately. . Non-Emergent Contact Non-Emergency issues call your: Primary Care Provider, Hospital Doctor, Surgeon , Specialist (Infectious Disease) . . "Provider Documentation" section prepared by Travis Barrett. . Retail [employer] Restaurant Associate Recommendations Retail [employer] Restaurant Associate Recommendations: ACTIVITY RECOMMENDATIONS: Limitations: No weight bearing to affected limb at all times. SPECIAL CARE INSTRUCTIONS: * Some drainage onto the dressing is normal and is no cause for alarm. * Some swelling is natural especially after walking. * When resting, keep your foot elevated above the level of your heart. * Call [facility] if you notice: -Increased drainage -Fever over 101 degrees F -Severe constant pain BANDAGE: * Dry dressing changes daily. FOLLOW UP VISIT WITH DR. ALBARADO If appointment is not already scheduled: Please call [facility] after you get home today to schedule a follow-up appointment for [address] Albarado at . Addendum: Travis Barrett M.D. on 12/26/17 @ 16:20 Discharge Inst - Addendum Addendum Notes: Hold atorvastatin (Lipitor) while receiving daptomycin. . Addendum Provider: Addendum Notes were documented by provider Travis Barrett. Additional Copies To Brett Albarado D.O.; India Wan D.O.; Jennifer. Wilhelm D.O.
== END 2017-12-26 17:40 | disposition home health service (06) | DRG 571 ==
LOC: C.EDB 20:02 → C.MSN 23:24 → ENRESERV 23:46 → CANRESERV 23:46 → EDBEDREQ 23:53 → ENRESERV 23:56 → OBSVTOIN 12-21 18:59
PROVIDERS: ADMIT Hospitalist; ATTEND Hospitalist
PROC: 02HV33Z Insertion of Infusion Device into Superior Vena Cava, Percutaneous Approach (ICD-10-PCS; 2017-12-22)
PROC: 0JBQ0ZZ Excision of Right Foot Subcutaneous Tissue and Fascia, Open Approach (ICD-10-PCS; principal; 2017-12-22 07:30)
PROC: 0J9Q0ZZ Drainage of Right Foot Subcutaneous Tissue and Fascia, Open Approach (ICD-10-PCS; principal; 2017-12-22 07:30)
DX: L03.115 Cellulitis of right lower limb (principal); L02.611 Cutaneous abscess of right foot; L97.419 Non-pressure chronic ulcer of right heel and midfoot with unspecified severity; M72.2 Plantar fascial fibromatosis; I80.01 Phlebitis and thrombophlebitis of superficial vessels of right lower extremity; R60.0 Localized edema; E11.621 Type 2 diabetes mellitus with foot ulcer; E11.42 Type 2 diabetes mellitus with diabetic polyneuropathy; E03.9 Hypothyroidism, unspecified; I10 Essential (primary) hypertension; E78.5 Hyperlipidemia, unspecified; D50.9 Iron deficiency anemia, unspecified; E66.9 Obesity, unspecified; Z68.31 Body mass index [BMI] 31.0-31.9, adult; Z86.011 Personal history of benign neoplasm of the brain; Z79.4 Long term (current) use of insulin; Z79.82 Long term (current) use of aspirin; Z79.899 Other long term (current) drug therapy; Z82.49 Family history of ischemic heart disease and other diseases of the circulatory system; Z83.3 Family history of diabetes mellitus

== ENCOUNTER → 2018-01-14 | Outpatient (CLI) | payer OTHER ==
[~2018-01-14] MED LIST changes: +DAPT500I IV; -DXY100 PO; +LSX20 PO; +LVNIS40 SQ; +POTA-74 PO; -SILV1CRE73 TOP
[2018-01-14 10:18] LABS: HEMATOCRIT 33.8 % (42-52); HEMOGLOBIN 11.5 g/dL (14.0-18.0); MEAN CELL VOLUME 91.6 fL (80-100); MEAN CORPUSCULAR HEMOGLOBIN 31.2 pg (25-34); MEAN PLATELET VOLUME 9.1 fL (7.4-10.4); PLATELET COUNT 269 K/uL (130-400); RED CELL DISTRIBUTION WIDTH CV 12.8 % (11.5-14.5); RED CELL DISTRIBUTION WIDTH SD 43.4 fL (36.4-46.3); WHITE BLOOD COUNT 9.93 K/uL (4.8-10.8)
[2018-01-14 10:28] LABS: ALBUMIN 3.8 gm/dl (3.4-5.0); ALT/SGPT 27 U/L (12-78); AST/SGOT 16 U/L (15-37); BLOOD UREA NITROGEN 13 mg/dl (7-18); CALCIUM 9.3 mg/dl (8.5-10.1); CARBON DIOXIDE 26 mmol/L (21-32); CREATININE 0.96 mg/dl (0.60-1.40); GLUCOSE 189 mg/dl (70-99); POTASSIUM 4.1 mmol/L (3.5-5.1); SODIUM 137 mmol/L (136-145)
[2018-01-14 10:31] LABS: ALKALINE PHOSPHATASE 71 U/L (45-117); TOTAL PROTEIN 8.5 gm/dl (6.4-8.2)
--- NOTE | 2018-01-23 08:26 | CODING QUERY NO DIAGNOSIS ---
Valid Physician Order Needed A valid physician order must be submitted in order to properly bill for the service(s) provided, including date of service(s), valid diagnosis, and physician signature. If these tests are done on a recurring basis the original physician order must be submitted in order to code and bill for the service(s) provided. Please fax us the original, signed physician order so that we may expedite billing to [phone] DOS 01/14/2018 * CBC W/O DIFF * SED RATE AUTOMATED * CPK * CMP Thank you [facility]id[facility] Information Management
== END | disposition home or self-care (01) ==
LOC: C.LABSPEC 10:05
PROVIDERS: ATTEND Family Medicine
DX: Z01.89 Encounter for other specified special examinations (principal)

== ENCOUNTER 2021-12-28 07:06 | Observation (INO) ==
[2021-12-28] MEDS ORDERED: HEPARIN (PORCINE) 1000 UNIT/ML 10 ML (CATH LAB USE ONLY) ONE (07:42)
[2021-12-28] MEDS ORDERED: MIDAZOLAM HCL 1 MG/ML 2ML VIAL ONE ×2 (07:42→10:13)
[2021-12-28] MEDS ORDERED: niCARdipine HCL INJ 2.5 MG/ML 10 ML AMP ONE (07:42)
[2021-12-28] MEDS ORDERED: fentaNYL citrate 100 MCG/2 ML VIAL ONE (07:42)
[2021-12-28] MEDS ORDERED: NITROGLYCERIN/D5W 100MCG/ML 20ML SYR ONE (07:43)
--- NOTE | 2021-12-28 08:24 | Pre Anesthesia Assessment ---
Date of Service December 28, 2021 Pre Sedation Assessment Vital Signs Temp Pulse Pulse Resp BP BP Pulse Ox 12/29/21 11:57 37.1 C 75 19 132/78 96 12/29/21 08:04 36.7 C 76 19 134/79 95 12/29/21 03:38 36.6 C 76 20 143/73 H 95 12/28/21 23:04 37.0 C 72 74 16 100/54 L 96 12/28/21 19:16 36.7 C 75 18 146/77 H 93 12/28/21 17:20 73 20 155/89 H 12/28/21 16:20 76 20 152/92 H 12/28/21 15:25 36.4 C L 73 20 143/82 H 94 12/28/21 15:20 76 20 152/92 H 12/28/21 14:20 75 20 137/81 95 12/28/21 13:20 75 20 156/77 H 12/28/21 12:50 76 20 163/94 H 98 Cardiovascular RRR, no murmur, no edema + regular rate and + regular rhythm + S1 normal and + S2 normal; no murmur + JVD and + carotid bruit + edema (1-2+ bilateral ankle edema with stasis changes) Respiratory + respiratory effort normal; no respiratory distress, no labored breathing and no retractions + clear to auscultation bilaterally; no crackles, no rales, no rhonchi and no wheezes Pre-Sedation Airway Assessment Smoking Status: Former smoker Hx Sleep Apnea: No Short, Thick Neck: No Thyromental Distance: > or= 3.5 Finger Breadths Oral Cavity: + WNL Mallampati Class: I ASA: ASA2 NPO Status Date of Last Intake of Fluids: 12/27/21 Time of Last Intake of Fluids: 21:00 Date of Last Intake of Solid Food: 12/27/21 Time of Last Intake of Solid Foods: 21:00 Procedure Planning Contraindications for Sedation: none Current Medications Reviewed: Yes Notes The planned sedation has been discussed with the patient. Informed Consent was obtained. I have identified the patient, determined the appropriateness of sedation and have assessed the patient immediately prior to the procedure. All medicine(s) and interventions are by my order.
--- NOTE | 2021-12-28 08:24 | History & Physical Bridge Note ---
Date of Service December 28, 2021 History & Physical Bridge Note I have examined the patient, reviewed the History & Physical and in the interval since the performance of the History & Physical I have noted the following changes of clinical significance: no changes noted
--- NOTE | 2021-12-28 09:18 | Post Anesthesia Assessment ---
Date of Service December 28, 2021 Post Sedation Assessment Vital Signs Temp Pulse Pulse Resp BP BP Pulse Ox 12/29/21 11:57 37.1 C 75 19 132/78 96 12/29/21 08:04 36.7 C 76 19 134/79 95 12/29/21 03:38 36.6 C 76 20 143/73 H 95 12/28/21 23:04 37.0 C 72 74 16 100/54 L 96 12/28/21 19:16 36.7 C 75 18 146/77 H 93 12/28/21 17:20 73 20 155/89 H 12/28/21 16:20 76 20 152/92 H 12/28/21 15:25 36.4 C L 73 20 143/82 H 94 12/28/21 15:20 76 20 152/92 H 12/28/21 14:20 75 20 137/81 95 12/28/21 13:20 75 20 156/77 H 12/28/21 12:50 76 20 163/94 H 98 Recovery Score Activity: Moves 4 extremities Respiration: Deep Breath/Cough Circulation: +/-20% PreAnes Value Consciousness: Arouseable (by name) Oxygen Saturation: > 92% On Room Air Discharge Sedation Level of Care: Phase I Post Sedation Plan On clinical assessment, the patient appears to have tolerated the sedation without complications. Patient is recovering as anticipated. Patient will continue to be monitored by nursing and may be discharged when sedation discharge criteria are met per below protocol. Upon Completions of procedure up to 15 minutes continue every 5 minute vital signs and the P.A.R. score; then discharge to a Phase I or Fast Track to Phase II per the following guidelines: * Discharge Patient to appropriate Phase II area if PAR is 8 or greater or return to pre- procedure baseline. The post - procedure orders will be as directed. * If PAR score is less than 8 or not return to pre-procedure baseline then patient will follow Phase I monitoring till PAR is reached for Phase II. The Phase I may be done in procedure room or may call to secure a Phase I area. * If naloxone or flumazenil are used for reversal, hold in Phase I for contin ued monitoring from when last reversal dose was given for a minimum of 60 minutes or longer pending the nurse and/or physician discretion of patient condition before discharge to Phase II. Please call the Sedation Physician to re-evaluate and complete post-note for discharge to Phase II area. Do NOT discharge from procedure sedation or Phase 1 until post- sedation evaluation note is complete by procedure /sedation MD Sedation Discharge Instructions to be given to the patient at discharge to home.
--- NOTE | 2021-12-28 09:33 | Cardiac Catheterization ---
Cardiac Cath Procedure Full Procedure Date December 28, 2021 Pre-Procedure Diagnosis Pre-Procedure Diagnosis: Angina, Positive Stress Test, CAD and Cardiothoracic Symptom AUC Score AUC Score: 7 Post-Procedure Diagnosis Post-Procedure Diagnosis: Severe CAD and Elevated Intracardiac Pressures Procedure(s) Performed Procedure(s) Performed: Coronary Angiography and Left Heart Cath Sanding Machine Tender Constantino Andrews DO Maori Liaison Adviser(s) Gift Shop Clerk MEDICAL RECORDS RECEPTIONIST Estimated Blood Loss Estimated Blood Loss: 5cc Medication(s) Medication(s): Fentanyl, Heparin, Lidocaine 1%, Nicardipine, Nitroglycerin and Versed Summary of Findings Right dominant coronary anatomy. Coronaries were engaged with a [place] multipurpose catheter. The left main is a large-caliber vessel free of obstructive disease. The left main trifurcates into the left anterior descending, ramus intermedius, and left circumflex. There is a long LAD stenosis extending from the proximal to mid segments with moderate to severe calcification. Stenosis ranges up to 80%. 30% late mid stenosis. 40% distal stenosis. There are 2 diagonal branch vessels. The first diagonal demonstrates a severe, 80% ostial stenosis extending to the proximal segment. The second diagonal vessel is 1 mm diameter. The left circumflex is a large nondominant vessel gives rise to a first large obtuse marginal branch vessel and a large posterior lateral branch vessel. The circumflex and branch vessels are free of significant obstructive disease. The right coronary artery is a large dominant vessel giving rise to posterior descending and 2 posterior lateral branch vessels. There are luminal irregularities of the proximal and mid right coronary artery. The posterior descending artery demonstrates a discrete distal 80% stenosis. The posterior lateral branch vessels are small and free of significant obstructive disease. Hemodynamics Rest Ao:: 108/57/82 Final Ao: 111/62/86 LV: 111//20 Recommendations Recommendations: PCI without planned CABG Specimens Specimens: None Radiation Exposure (mGy) 1043 Contrast (mls) 50 Fluids (cc crystalloids) Fluids (cc crystalloids): 150 Nss Anesthesia Moderate sedation. Start 0849. End 0915. Sedation monitor: Lose RN Procedural Complication(s) None Disposition Patient remained in Traffic Enumerator for PCI of LAD and possibly RPDA as well. I attest to the content of the Intraoperative Record and any orders documented therein. Any exceptions are noted below. ACC Data: Traffic Enumerator Cardiac Status Clinical evaluation leading to the procedure 56-year-old patient presented to outpatient clinic secondary to exertional chest pain. Exercise stress echo was performed demonstrating apical hypokinesis to akinesis. Stress images were inadequate to assess sheryl-infarct ischemia. Due to exertional anginal symptoms, cardiac catheterization recommended. CAD Presenation: Positive Stress Test and Stable angina Heart Failure: No Imaging Studies Past 6 Months: Yes Stress Studies Past 6 Months: No Stress Echocardiogram: Yes - Indeterminant (Evidence of apical hypokinesis to akinesis. Sheryl-infarct ischemia cannot be assessed due to poor image quality.) Coronary Anatomy Dominant: Right Left Main (% Stenosis): Normal LAD (% Stenosis): Proximal (There is a long stenosis ranging up to 80% extending from the proximal LAD to the mid segment.) and Distal (40%) D1 (% Stenosis): Ostial (80% extending to the proximal segment) D2 (% Stenosis): Mid (Diminutive vessel with luminal irregularities, 10%.) Circumflex (% Stenosis): Normal OM1 (% Stenosis): Proximal (10%) L PL1 (% Stenosis): Normal RCA (% Stenosis): Proximal (Diffuse luminal irregularities, 10%) R PDA (% Stenosis): Distal (80%) R PL1 (% Stenosis): Normal R PL2 (% Stenosis): Normal Ramus (% Stenosis): Normal (Diminutive, 1.5 mm vessel) Diagnostic Physicians Name: Constantino Andrews DO Closure Device Percutaneous Entry Location: Radial Closure Device: Radial Band Recommendations: PCI without planned CABG Intraprocedure Events Significant Disection: No Perforation: No
[2021-12-28] MEDS ORDERED: CLOPIDOGREL BISULFATE 300 MG TAB ONE (11:10)
[2021-12-28] MEDS ORDERED: NITROGLYCERIN SL 0.4 MG/TAB TAB SL PRN (11:35)
[2021-12-28] MEDS ORDERED: ACETAMINOPHEN 325 MG TAB PO PRN (11:35)
--- NOTE | 2021-12-28 11:44 | Post Anesthesia Assessment ---
Date of Service December 28, 2021 Post Sedation Assessment Vital Signs Temp Pulse Resp BP Pulse Ox 12/28/21 11:39 73 15 145/89 H 92 12/28/21 11:25 73 15 144/88 H 90 12/28/21 07:12 98.6 F 77 16 156/110 H 96 Recovery Score Activity: Moves 4 extremities Respiration: Deep Breath/Cough Circulation: +/-20% PreAnes Value Consciousness: Fully Awake Oxygen Saturation: O2 needed for >90% Post Anesthesia Score: 9 Discharge Sedation Level of Care: Fast Track Phase II Post Sedation Plan On clinical assessment, the patient appears to have tolerated the sedation without complications. Patient is recovering as anticipated. Patient will continue to be monitored by nursing and may be discharged when sedation discharge criteria are met per below protocol. Upon Completions of procedure up to 15 minutes continue every 5 minute vital signs and the P.A.R. score; then discharge to a Phase I or Fast Track to Phase II per the following guidelines: * Discharge Patient to appropriate Phase II area if PAR is 8 or greater or return to pre- procedure baseline. The post - procedure orders will be as directed. * If PAR score is less than 8 or not return to pre-procedure baseline then pa nguyen will follow Phase I monitoring till PAR is reached for Phase II. The Phase I may be done in procedure room or may call to secure a Phase I area. * If naloxone or flumazenil are used for reversal, hold in Phase I for continued monitoring from when last reversal dose was given for a minimum of 60 minutes or longer pending the nurse and/or physician discretion of patient condition before discharge to Phase II. Please call the Sedation Physician to re-evaluate and complete post-note for discharge to Phase II area. Do NOT discharge from procedure sedation or Phase 1 until post- sedation evaluation note is complete by procedure /sedation MD Sedation Discharge Instructions to be given to the patient at discharge to home.
[2021-12-28] MEDS ORDERED: SODIUM CHLORIDE 0.9% 1000ML 1,000 ML IV SCH (11:45)
--- NOTE | 2021-12-28 11:53 | Cardiac Catheterization ---
[facility] Data: [facility] [employer] Cardiac Status Clinical evaluation leading to the procedure CAD Presenation: Positive Stress Test Anginal Classification: CCS III Heart Failure: No Cardiogenic Shock within 24 Hours: No Cardiac Arrest within 24 Hours: No Imaging Studies Past 6 Months: Yes Stress Studies Past 6 Months: Yes Stress Echocardiogram: Yes - Positive and Risk/Extent of Ischemia (High) Diagnostic Physicians Name: Kehinde Gunter MD Status: Elective Closure Device Percutaneous Entry Location: Radial Closure Device: Radial Band Recommendations: PCI without planned CABG PCI Indication: + Stress Test and Angina despite med therapy Lesion Segment Name: ostial to mid LAD Culprit Artery: Yes Stenosis Prior to Rx (%): 90 Chronic Total Occlusion: No IVUS: No FFR: No Pre-Procedure SHARON Flow: 3 Previously Treated Lesion: No Lesion Complexity: High/C Lesion Length (mm): 50 Thrombus Present: No Bifurcation Lesion: Yes Guidewire Across Lesion: Stenosis Post-Procedure (%): 0 Post-Procedure SHARON Flow: 3 Devices(s) Deployed: Yes Yes Intraprocedure Events Significant Disection: No Perforation: No Cardiac Cath Procedure Full Procedure Date December 28, 2021 Pre-Procedure Diagnosis Pre-Procedure Diagnosis: Angina, Positive Stress Test and CAD AUC Score AUC Score: 7 Post-Procedure Diagnosis Post-Procedure Diagnosis: Severe CAD and Successful PCI Procedure(s) Performed Procedure(s) Performed: Coronary Angiography, Drug Eluting Stent and IVUS Filter Washer And Presser Kehinde Gunter MD Transport Truck Driver(s) John VAUGHAN Estimated Blood Loss Estimated Blood Loss: 15 Medication(s) Medication(s): Fentanyl, Heparin, Lidocaine 1%, Nicardipine, Nitroglycerin and Versed Summary of Findings Indication: Angina, abnormal stress test Access: 6 Fr right radial artery Catheters: EBU 3.5 guide Findings: For full details of patient's coronary angiography please see cath report dictated by Dr. Andrews. Briefly, patient found to have severe diffuse proximal to mid LAD disease involving bifurcation with small second diagonal. Decision to proceed with PCI. -- PCI -- Antithrombotic therapy: Heparin, clopidogrel Procedure: Left main cannulated with EBU 3.5 guide Running Rigger 50 wire passed across lesion into distal LAD LAD predilated with 2.5 balloon Whisper wire placed into D2 [place] IVUS catheter placed into proximal LAD Pullback revealed heavily calcified vessel with severe disease extending back to the ostium. Left main with mild minimally calcified disease. LAD further dilated with 3.0 balloon Ostium of D2 dilated with 2.0 balloon Mid LAD lesion stented with 2.5 x 26 mm [place] across takeoff of diagonal Second OVIDIO (3.0 x 26 mm Blake) placed from ostium to mid LAD overlapping proximal aspect of initial stent Diagonal rewired with helicopter pilot instructor 50 wire Ostium of diagonal dilated with 2.0 balloon through stent struts LAD stents postdilated with 3.5 NC to high atmospheres IC vasodilators administered for spasm Following post dilation minimal flow in diagonal branch. Ostium of diagonal redilated with 2.0 balloon through stent struts Post procedure SHARON 3 flow in LAD/diagonal, stents well expanded with minimal residual stenosis and no apparent cardiac complications. Arterial Closure: TR band Summary: 1. Successful PCI of ostial to mid LAD with 2 overlapping drug-eluting stents (3.0 x 26, 2.5 x 26 mm Blake; postdilated with 3.5 NC). -Angioplasty of small jailed second diagonal with 2.0 balloon Recommendations: To PCU for continued monitoring Loaded with clopidogrel 600 mg in [facility] [employer] Continue dual-antiplatelet therapy for at least 6 months. Consider extended DAPT in the setting of complex PCI. Continue statin, and ASCVD risk factor modification Consult cardiac Rehab If refractory symptoms in the future could consider PCI to mid PDA lesion. Hemodynamics Rest Ao:: 129/63/91 Final Ao: 129/70/95 LV: -- Recommendations Recommendations: PCI without planned CABG Specimens Specimens: None Radiation Exposure (mGy) 5725 Contrast (mls) 150 Fluids (cc crystalloids) Fluids (cc crystalloids): 150 Nss Anesthesia Moderate sedation. Start 0945. End 1113. Sedation monitor: Lose RN Procedural Complication(s) None Disposition PCU I attest to the content of the Intraoperative Record and any orders documented therein. Any exceptions are noted below. [facility] Card Cath Procedure Codes Therapeutic Services & Ancillary Proc Procedure 1: Cardiovascular Tx and Anc Procedures: 66057 IV Ultrasound (Coronary or Graft) Moderate Sedation Procedure 1: Sedation/Anesthesia: 34420 Mod Sedation by the same physician; Ea [id number] Minutes Stenting Procedure 1: Cardiovascular Stent Procedures: 43578 Perc transcatheter placement of intracoronary stent(s), with ang PG Care Time/CCT Total # of Minutes Spent Total Time Spent with Patient: Total time spent is greater than 50% in coordination of care (as documented) at patient's floor/unit and/or counseling patient:
--- NOTE | 2021-12-28 12:37 | History & Physical Report ---
Date of Service December 28, 2021 Assessment & Plan (1) S/P cardiac cath: (2) Abnormal stress test: Plan: Patient is 56-year-old male with PMH DM II, HTN, dyslipidemia, hypothyroidism, chronic bilateral lower extremity edema, chronic anemia presented today for cardiac cath secondary to abnormal exercise stress test outpatient. Today had cardiac cath s/p PCI of ostial to mid LAD with 2 overlapping drug- eluting stents, angioplasty of diagonal. Loaded with Plavix Post op denies CP Continue aspirin, Plavix, atorvastatin, carvedilol EKG in am Cardiology on board CBC, CMP in am (3) DMII (diabetes mellitus, type 2): Plan: A1c: 6.8 on 12/22/2021 Hold home Metformin Continue home basal insulin. NovoLog sliding scale per protocol (4) HTN (hypertension): Plan: Continue carvedilol, losartan (5) Dyslipidemia: Plan: Continue atorvastatin (6) Hypothyroidism: Plan: Continue levothyroxine (7) Bilateral lower extremity edema: (8) Nephrotic range proteinuria: Plan: Continue Lasix (9) Chronic anemia: Plan: Baseline hemoglobin ~12 DVT Prophylaxis SCDs Full Code as per discussion with pt Follows with Dr Julian De Paz for routine care Pt was seen and care coordinated with Dr Brock. See addendum Admission and Anticipated Discharge Date Admission Date: December 28, 2021 History of Present Illness Chief Complaint: Abnormal stress test Primary Care Provider: Julian De Paz DO Patient is 56-year-old male with PMH DM II, HTN, dyslipidemia, hypothyroidism, chronic bilateral lower extremity edema, chronic anemia presented today for cardiac cath secondary to abnormal exercise stress test outpatient. Following outpatient with cardiology, Dr. Andrews, for abnormal exercise stress test and angina symptoms. Today had cardiac cath s/p PCI of ostial to mid LAD with 2 overlapping drug-eluting stents, angioplasty of diagonal. Postop patient reports feeling drowsy. Denies chest pain, shortness of breath, dizziness, headache, nausea. Reports chronic bilateral lower extremity edema and feels this is at baseline. Reports did not have any medications this morning. Denies fever/chills, diaphoresis, N/V/D/C, syncope, vision changes, neck pain, orthopnea, palpitations, cough, sore throat, choking, otalgia, rhinorrhea, abdominal pain, paresthesias, weakness, extremity weakness, rashes, urinary symptoms. Allergies Allergy/AdvReac Type Severity Reaction Status Date / Time No Known Allergies Allergy Unverified 09/11/13 09:06 Home Medications Medication Instructions Recorded Confirmed Type aspirin 81 mg tablet,delayed 81 mg PO DAILY tab 06/09/19 12/28/21 History release blood sugar diagnostic (OneTouch #10 ea 06/09/19 06/09/19 History Ultra Blue Test Strip) atorvastatin 80 mg tablet 80 mg PO DAILY 12/28/21 12/28/21 History carvedilol 3.125 mg tablet 3.125 mg PO BID 12/28/21 12/28/21 History furosemide 40 mg tablet 40 mg PO BID 12/28/21 12/28/21 History insulin glargine 100 unit/mL (3 50 unit SUBCUT HS 12/28/21 12/28/21 History mL) subcutaneous pen (Basaglar KwikPen U-100 Insulin) levothyroxine 100 mcg tablet 100 mcg PO DAILY 12/28/21 12/28/21 History losartan 100 mg tablet 100 mg PO DAILY 12/28/21 12/28/21 History metformin 750 mg tablet,extended 1,500 mg PO HS 12/28/21 12/28/21 History release 24 hr Past Med/Surg History Medical History (Updated 12/28/21 @ 13:15 by Zayda Jaquez PA-C) Bilateral lower extremity edema Chronic anemia DMII (diabetes mellitus, type 2) Dyslipidemia HTN (hypertension) Hypothyroidism Nephrotic range proteinuria Surgical History (Updated 12/28/21 @ 13:10 by Zayda Jaquez PA-C) History of colonoscopy S/P cardiac cath 12/28/21 - Dr Andrews, Dr Gunter at [facility]. PCI of ostial to mid LAD with 2 overlapping OVIDIO. Angioplasty of diagonal. Family History (Updated 12/28/21 @ 13:13 by Zayda Jaquez PA-C) Brother Diabetes Coronary heart disease age 42, CABG Father Diabetes Coronary heart disease age 58, bypass Mother Hypertension Social History (Updated 12/28/21 @ 13:13 by Zayda Jaquez PA-C) Smoking Status: Former smoker Hx Alcohol Use: Yes (1 drink a week) Alcohol type: beer Hx Substance Use: No Preferred Language: Hungarian Communication Ability: Effective Director Product Management Required: No Beliefs That Will Affect Care: None marital status: Current Living Situation: Spouse How many Children do You have: 1 Feels Safe at Home: Yes Assistive Devices: None Review of Systems Review of Systems: All systems reviewed & are unremarkable except as noted in HPI & below Physical Exam Physical Exam: General: no distress, WDWN Head: normocephalic, atraumatic Eyes: conjunctiva non-injected, anicteric ENT: normal inspection external ears, nose, mucous membranes moist Neck: supple, trachea midline Lungs: clear, no respiratory distress, no wheezing/rhonchi/rales CV: RRR, no murmur, 1-2+ pretibial edema Abd: normal BS, soft, non-tender Ext: no cyanosis, no erythema, no calf tenderness; right radial band in place Neuro: A&O x 3, no focal deficits noted, normal affect Skin: warm, dry Results & Data Results & Data ([facility]) Vital Signs (Past 12 Hours) Vital Signs Temp Pulse Resp BP Pulse Ox 12/28/21 11:39 73 15 145/89 H 92 12/28/21 11:25 73 15 144/88 H 90 12/28/21 07:12 37 C 77 16 156/110 H 96 Code Status & VTE Plan VTE Prophylaxis Plan VTE Prophylaxis will be ordered: Yes Supervising Physician Co-Signing Physician Notes Patient is a 56-year-old male with history of diabetes mellitus, hypertension, hypothyroidism and other medical problems was evaluated after having cardiac catheterization for abnormal stress test done as outpatient. Patient denies any chest pain, dyspnea, dizziness, nausea, abdominal pain post catheterization. Patient had successful PCI to ostial to mid LAD with 2 overlapping drug-eluting stents, angioplasty of diagonal. Please review HPI for complete details. On exam patient is moderately built and nourished, no apparent distress, normocephalic atraumatic, EOMI, normal breath sounds, clear to auscultation, S1- S2, no murmur, bilateral lower extremity edema present, abdomen soft, nontender, normal bowel sounds, alert, awake, oriented, grossly no focal deficits. Angina S/P PCI. Continue aspirin, Plavix, statin, beta-karl. Cardiology consulted. Repeat EKG in the morning. Continue insulin therapy for diabetes management. I personally reviewed the record. Patient is interviewed and examined at bedside. Patient's care is coordinated with Zayda Jaquez PA-C. Please refer to the documentation above for details of patient's presentation and for discussion of other issues.
[2021-12-28] MEDS ORDERED: CARBOHYDRATES FOR HYPOGLYCEMIA PO PRN (12:55)
[2021-12-28] MEDS ORDERED: GLUCOSE 10 TABS/TUBE PO PRN (12:55)
[2021-12-28] MEDS ORDERED: GLUCOSE 40% GEL 15 GM TUBE PO PRN (12:55)
[2021-12-28] MEDS ORDERED: GLUCAGON FOR INJ 1 MG VIAL SQ PRN (12:55)
[2021-12-28] MEDS ORDERED: DEXTROSE 50% 50 ML SYRINGE IV PRN (12:55)
[2021-12-28] MEDS ORDERED: Nursing to Pharmacy Communication SCH (14:00)
[2021-12-28] MEDS: LOSARTAN POTASSIUM 50 MG TAB PO SCH (16:26)
[2021-12-28] MEDS: carvediloL 3.125 MG TAB PO SCH ×2 (16:27→20:07)
[2021-12-28] MEDS: ATORVASTATIN 40 MG TAB PO SCH (16:28)
[2021-12-28] MEDS: INSULIN ASPART PER UNIT SC SCH ×2 (17:28→21:02)
[2021-12-28] MEDS: FUROSEMIDE 40 MG TAB PO SCH (20:07)
[2021-12-28] MEDS ORDERED: carvediloL 3.125 MG TAB PO SCH (21:00)
[2021-12-28] MEDS: INSULIN GLARGINE SOLOSTAR 100 UNITS/ML 3 ML PEN SC SCH (21:03)
[2021-12-29] MEDS ORDERED: LEVOTHYROXINE SODIUM 100 MCG TABLET PO SCH (06:30)
[2021-12-29 07:43] LABS: Hematocrit (blood only) 29.9 % (42-52); Hemoglobin 10.9 g/dL (14.0-18.0); Mean Corpuscular Hemoglobin 33.9 pg (25-34); Mean Corpuscular Hgb Conc 36.5 g/dL (32-36); Mean Corpuscular Volume 92.9 fL (80-100); Mean Platelet Volume 9.5 fL (7.4-10.4); Platelet Count 250 K/uL (130-400); RDW Standard Deviation 40.8 fL (36.4-46.3); Red Blood Count 3.22 M/uL (4.7-6.1); White Blood Count 9.05 K/uL (4.8-10.8)
[2021-12-29] MEDS: INSULIN ASPART PER UNIT SC SCH ×2 (08:11→12:02)
[2021-12-29] MEDS: carvediloL 3.125 MG TAB PO SCH (08:13)
[2021-12-29] MEDS: LOSARTAN POTASSIUM 50 MG TAB PO SCH (08:13)
[2021-12-29] MEDS: ATORVASTATIN 40 MG TAB PO SCH (08:14)
[2021-12-29] MEDS: FUROSEMIDE 40 MG TAB PO SCH (08:15)
[2021-12-29 08:17] LABS: BUN Creatinine Ratio 20.4 (10-20); Bilirubin,Total 0.6 mg/dl (0.2-1.0); Calcium 8.4 mg/dl (8.5-10.1); Chol HDL Ratio 4.2 (0-5); Creatinine Clr Calc Pharmacy 96.9 ml/min; Est GFR (Non-African American) 91.4 ml/min; Globulin 2.9 gm/dl (2.5-4.0); Total Protein 5.9 gm/dl (6.0-8.3)
[2021-12-29] MEDS ORDERED: ATORVASTATIN 40 MG TAB PO SCH (09:00)
[2021-12-29] MEDS ORDERED: ASPIRIN 81 MG ECTAB PO SCH ×3 (09:00)
[2021-12-29] MEDS ORDERED: LOSARTAN POTASSIUM 50 MG TAB PO SCH (09:00)
[2021-12-29] MEDS ORDERED: CLOPIDOGREL BISULFATE 75 MG TAB PO SCH (09:00)
[2021-12-29] MEDS: INSULIN GLARGINE SOLOSTAR 100 UNITS/ML 3 ML PEN SC SCH (09:08)
--- NOTE | 2021-12-29 12:51 | Cardiology Progress Note ---
Date of Service December 29, 2021 Assessment & Plan (1) S/P cardiac cath: (2) Abnormal stress test: (3) Status post insertion of drug-eluting stent into left anterior descending (LAD) artery for coronary artery disease: (4) Dyslipidemia: (5) HTN (hypertension): Plan: Post cardiac catheterization activity restrictions listed below. Discussed importance of continuing dual antiplatelet therapy for a minimum of 6 months, preferably 1 year post percutaneous intervention. Residual right PDA stenosis will be managed medically at this time. Consider intervention with any recurrent anginal symptoms. Continue high intensity statin therapy, beta- karl, and ARB as previously ordered. Post cardiac catheterization activity restrictions listed below. Cardiology follow-up as scheduled 01/17/2022. Consider referral to cardiac rehab during that visit. ACTIVITY RECOMMENDATIONS: It is common to feel weak and fatigue for a few days. * Do not drive or operate any motorized equipment for the next three days. * Limit stair usage (2 or 3 trips a day only) for the next three days. * Do not lift anything heavier than 10 pounds for the next three days. * Do not engage in vigorous exercise or any sports for the next five days. * You may shower the day after your procedure, but do not immerse the area for three days. Cleanse the site gently with soap and water. SPECIAL CARE INSTRUCTIONS: * You may replace the pressure dressing or band-aid the morning after the procedure. * After your procedure, it is normal to have a small bruise or small lump at the site. Examine your site daily for any change in the bruise or lump, redness, swelling, drainage or numbness. Notify your doctor if any change. BLEEDING: * If there is a small amount of bleeding at the site, lie down and apply firm pressure with a clean cloth for ten minutes. When the bleeding stops, lie quietly keeping the procedure limb straight for six hours. Notify your doctor as soon as possible. * If the bleeding does not stop after ten minutes or if there is a large amount of bleeding or spurting, call 911 immediately. Continue to lie down and hold firm pressure until help arrives. SKIN IRRITATION: * You may experience some redness and/or swelling in the area where radiation was administered. If any skin irritation occurs, please contact your family physician. Admission and Anticipated Discharge Date Admission Date: December 28, 2021 Subjective Patient seen and examined at bedside. Feeling well overnight. Denies chest discomfort or shortness of breath. Telemetry reveals sinus rhythm in the 80s. No dysrhythmias. No right wrist hematoma or ecchymosis. Denies orthopnea, PND, or lower extremity edema. Review of Systems Review of Systems: All systems reviewed & are unremarkable except as noted in Subjective Physical Exam Constitutional: well developed and well nourished; no acute distress Respiratory: normal respiratory effort; no respiratory distress, no labored breathing and no retractions Auscultation: lungs clear to auscultation bilaterally; no crackles, no rales, no rhonchi and no wheezes Cardiovascular: RRR, no murmur, no edema Rate/Rhythm: regular rate and regular rhythm Heart Sounds: normal S1 and normal S2; no murmur Vessels: femoral pulses present and radial pulses present; no JVD and no carotid bruit Extremities: no edema Gastrointestinal (Abdomen): Inspection/Auscultation: normal bowel sounds; abdomen not distended Percussion/Palpation: abdomen soft; abdomen nontender, no guarding and abdomen not rigid Neurologic: CN's II-XI intact bilaterally and moves all extremities; no focal motor deficits Motor/Sensory: no tremor Psychiatric: A+Ox3, euthymic affect Results & Data ([facility]) Vital Signs (Past 12 Hours) Vital Signs Temp Pulse Resp BP Pulse Ox 12/29/21 11:57 37.1 C 75 19 132/78 96 12/29/21 08:04 36.7 C 76 19 134/79 95 12/29/21 03:38 36.6 C 76 20 143/73 H 95
--- NOTE | 2021-12-29 14:15 | Discharge Summary ---
Date of Service December 29, 2021 Admission HPI Per Admitting Provider Patient is 56-year-old male with PMH DM II, HTN, dyslipidemia, hypothyroidism, chronic bilateral lower extremity edema, chronic anemia presented today for cardiac cath secondary to abnormal exercise stress test outpatient. Following outpatient with cardiology, Dr. Andrews, for abnormal exercise stress test and angina symptoms. Today had cardiac cath s/p PCI of ostial to mid LAD with 2 overlapping drug-eluting stents, angioplasty of diagonal. Postop patient reports feeling drowsy. Denies chest pain, shortness of breath, dizziness, headache, nausea. Reports chronic bilateral lower extremity edema and feels this is at baseline. Reports did not have any medications this morning. Denies fever/chills, diaphoresis, N/V/D/C, syncope, vision changes, neck pain, orthopnea, palpitations, cough, sore throat, choking, otalgia, rhinorrhea, abdominal pain, paresthesias, weakness, extremity weakness, rashes, urinary symptoms. Admission Exam Per Admitting Provider General: no distress, WDWN Head: normocephalic, atraumatic Eyes: conjunctiva non-injected, anicteric ENT: normal inspection external ears, nose, mucous membranes moist Neck: supple, trachea midline Lungs: clear, no respiratory distress, no wheezing/rhonchi/rales CV: RRR, no murmur, 1-2+ pretibial edema Abd: normal BS, soft, non-tender Ext: no cyanosis, no erythema, no calf tenderness; right radial band in place Neuro: A&O x 3, no focal deficits noted, normal affect Skin: warm, dry Principal Diagnosis CAD status post cardiac cath and drug eluting stents Discharge Exam General: Lying comfortably in bed, not in distress, on room air HEENT: EOMI, CLIVE, MMM Chest: Clear breath sounds bilaterally, no wheezes or crackles CVS: Regular rate and rhythm, normal heart sounds, no murmur Abdomen: Soft, non tender, not distended, normal bowel sounds Neuro: Awake, alert, oriented, conversing well, non focal Extremities: No edema. Right wrist cath puncture site clean, dry. Discharge Data Allergies Allergy/AdvReac Type Severity Reaction Status Date / Time No Known Allergies Allergy Unverified 09/11/13 09:06 Consultations 12/28/21 11:40 Consult Cardiac Rehabilitation Routine 12/29/21 08:00 Consult Cardiology Routine Procedures Performed Operation Date: 12/28/21 08:00 Actual Procedures p Cineradiography w/Routine Exam - Constantino Andrews DO p Cath, Left with Cors and Vent - Constantino Andrews DO s Drug Eluting Stent SGl Vessel - Murray Gunter MD Ordered Studies 12/28/21 06:47 CL Cath Imgs for PACS use only Routine 12/28/21 11:54 CL IVUS Coronary Single Vessel Routine Hospital Course (1) S/P cardiac cath: (2) Abnormal stress test: (3) DMII (diabetes mellitus, type 2): (4) HTN (hypertension): (5) Dyslipidemia: (6) Hypothyroidism: (7) Bilateral lower extremity edema: (8) Nephrotic range proteinuria: Patient is 56-year-old male with PMH DM II, HTN, dyslipidemia, hy pothyroidism, chronic bilateral lower extremity edema, chronic anemia presented yesterday for cardiac cath secondary to abnormal exercise stress test outpatient. He had cardiac cath and underwent PCI of ostial to mid LAD with 2 overlapping drug-eluting stents, angioplasty of diagonal. He was admitted post cath for monitoring. Uneventful stay. Seen by cardiology today and cleared for discharge home. Discharge instructions and meds provided by cardiology. Cardio will follow up as OP and refer to cardiac rehab. He feels fine. No chest pain, shortness of breath, nausea, vomiting. Tolerating food well, voiding without issues, ambulating to the bathroom. He is comfortable and stable for discharge. He will need dual antiplatelet for at least 6 months or even longer. He is on high intensity statin. Recommended that he hold metformin until tomorrow due to the contrast yesterday for the cath. Other medical problems CAD, abnormal stress test- s/p cardiac cath with PCI and stenting- continue DAPT, high intensity statin, beta karl. F/u with cardio and cardiac rehab Hypertension- continue coreg, losartan HLD- continue statin DM-2- A1c 6.8. Continue lantus. Resume metformin from tomorrow Hypothyroid- continue synthroid H/o Nephrotic range proteinuria with leg edema- on lasix Total Time Total Time Spent Total Time Spent (In Minutes): 32 Discharge Plan Discharge Items Patient Disposition: Home - Self-Care Reason For Visit: Abnormal Echo, Angina Discharge Diagnosis: Avoid metformin today since you got the contrast dye yesterday during cardiac cath. You can resume your metformin from tomorrow Status post cardiac catheterization. Status post drug-eluting stent implantation x2 to the left anterior descending artery. Residual distal right PDA stenosis managed medically. Activity: Per Instructions section Non-emergency contact: Waiter/Waitress Second Class Call non-emergency contact if: you have any medication questions and your wound pain has increased Follow-up/Referrals: Constantino Andrews DO [Waiter/Waitress Second Class] - (Date & Time 01/17/2022 11:00 AM Provider Constantino Andrews DO Department Cardiology, [facility] ) Julian De Paz DO [Primary Care Provider] - (Date & Time 01/04/2022 2:00 PM Provider Julian De Paz DO Department [facility] ) Diet: Carb Consistent or DM2 and Heart Healthy Addtl Attending Provider Instructions: ACTIVITY RECOMMENDATIONS: It is common to feel weak and fatigue for a few days. * Do not drive or operate any motorized equipment for the next three days. * Limit stair usage (2 or 3 trips a day only) for the next three days. * Do not lift anything heavier than 10 pounds for the next three days. * Do not engage in vigorous exercise or any sports for the next five days. * You may shower the day after your procedure, but do not immerse the area for three days. Cleanse the site gently with soap and water. SPECIAL CARE INSTRUCTIONS: * You may replace the pressure dressing or band-aid the morning after the procedure. * After your procedure, it is normal to have a small bruise or small lump at the site. Examine your site daily for any change in the bruise or lump, redness, swelling, drainage or numbness. Notify your doctor if any change. BLEEDING: * If there is a small amount of bleeding at the site, lie down and apply firm pressure with a clean cloth for ten minutes. When the bleeding stops, lie quietly keeping the procedure limb straight for six hours. Notify your doctor as soon as possible. * If the bleeding does not stop after ten minutes or if there is a large amount of bleeding or spurting, call 911 immediately. Continue to lie down and hold firm pressure until help arrives. SKIN IRRITATION: * You may experience some redness and/or swelling in the area where radiation was administered. If any skin irritation occurs, please contact your family physician. FOLLOW UP VISIT: Keep any scheduled doctor appointments. Pending Studies at Discharge: No Stand-Alone Forms: My [facility], Smoking Cessation Medications and DC Order Prescriptions: New clopidogrel 75 mg Tablet 75 mg PO QAM Qty: 34 RF: 6 nitroglycerin [Nitrostat] 0.4 mg Tablet, Sublingual 0.4 mg sublingual PRN Qty: 1 RF: 3 Continued aspirin 81 mg tablet,delayed release (DR/EC) 81 mg PO DAILY RF: 0 atorvastatin 80 mg tablet 80 mg PO DAILY RF: 0 Basaglar KwikPen U-100 Insulin 100 unit/mL (3 mL) insulin pen 50 unit SUBCUT HS RF: 0 furosemide 40 mg tablet 40 mg PO BID RF: 0 carvedilol 3.125 mg tablet 3.125 mg PO BID RF: 0 levothyroxine 100 mcg tablet 100 mcg PO DAILY RF: 0 losartan 100 mg tablet 100 mg PO DAILY RF: 0 metformin 750 mg tablet extended release 24 hr 1,500 mg PO HS RF: 0 No Action (DME) OneTouch Ultra Blue Test Strip strip See Dose Instructions .ROUTE .MEDSUPPLY Qty: 10 RF: 0 Discharge Orders: Discharge Order (Routine); Ordered 12/29/21 Ordered By: Elvin Jones Admission Data Admit Date/Time: 12/28/21 11:40 Attending Provider: Elvin Jones Admit Provider: Constantino Andrews Primary Care Provider: Julian De Paz. Other Providers: Kenan Rojas ; Radu Martino ; Hal Haywood ; Constantino Andrews ; Ronnell Solorio ; Bereket Hurtado ; Lilian Pritchett ; Kinga Mir ; Patricia Rocha ; Carlos Miller
--- NOTE | 2021-12-29 21:52 | Electrocardiogram Report ---
Test Reason : Blood Pressure : / mmHG Vent. Rate : 072 BPM Atrial Rate : 072 BPM P-R Int : 154 ms QRS Dur : 126 ms QT Int : 416 ms P-R-T Axes : 060 -16 018 degrees QTc Int : 455 ms Normal sinus rhythm Right bundle branch block Septal infarct , age undetermined Abnormal ECG When compared with ECG of 17-DEC-2017 07:09, Right bundle branch block is now Present Septal infarct is now Present Confirmed by Corey Gonzalez ([id number]) on 12/29/2021 9:52:19 PM Referred By: Constantino Andrews Confirmed By:Corey Gonzalez
== END 2021-12-29 15:42 | disposition home or self-care (01) ==
LOC: 2S 07:06 → CC 07:06
DX: I25.118 Atherosclerotic heart disease of native coronary artery with other forms of angina pectoris; I10 Essential (primary) hypertension; E11.9 Type 2 diabetes mellitus without complications; E03.9 Hypothyroidism, unspecified; D64.9 Anemia, unspecified; Z79.01 Long term (current) use of anticoagulants; Z79.82 Long term (current) use of aspirin; R60.0 Localized edema; E78.5 Hyperlipidemia, unspecified; Z79.890 Hormone replacement therapy; Z79.899 Other long term (current) drug therapy; Z79.4 Long term (current) use of insulin; Z79.84 Long term (current) use of oral hypoglycemic drugs